=== PATIENT | male | born 1980 | race Caucasian/White ===

== ENCOUNTER 2019-11-15 10:41 | Outpatient (REF) | payer SELFPAY ==
[2019-11-15 13:41] LABS: Basophils # 0.1 10^3/uL (0.0-0.1); Basophils % 0.7 %; Eosinophils # 0.2 10^3/uL (0.0-0.8); Eosinophils % 2.7 %; Hematocrit 43.7 % (42.0-52.0); Hemoglobin 14.7 g/dL (11.7-16.6); Lymphocytes # 2.4 10^3/uL (0.8-4.8); Lymphocytes % 31.4 %; Mean Corpuscular HGB Conc 33.6 g/dL (30.0-36.0); Mean Corpuscular Hemoglobin 31.1 pg (28.0-34.0); Mean Corpuscular Volume 92.6 fL (80-94); Monocytes # 0.6 10^3/uL (0.2-0.9); Neutrophils # 4.4 10^3/uL (1.8-7.7); Neutrophils % 56.9 %; Nucleated Red Blood Cells % 0 %; Platelet Count 254 10^3/cmm (130-400); Red Blood Count 4.72 10^6/uL (4.1-5.3); Red Cell Distribution Width 13.1 % (12.1-15.1); White Blood Count 7.7 10^3/uL (4.0-10.0)
[2019-11-15 14:03] LABS: Estmated Average Glucose 94; Hemoglobin A1C 4.9 % (4.0-6.0)
[2019-11-15 14:07] LABS: Alanine Aminotransferase 18 U/L (0-41); Albumin Level 4.2 g/dL (3.5-5.2); Alkaline Phosphatase 82 IU/L (40-130); Anion Gap 15.8 (5-19); Aspartate Amino Transferase 20 U/L (0-40); Blood Urea Nitrogen 15 mg/dL (6-20); Calcium 9.8 mg/dL (8.5-10.5); Carbon Dioxide 26 mmol/L (22-29); Chloride 104 mmol/L (98-107); Chol HDL Ratio 2.64 mg/dL (1.0-5.00); Cholesterol 148 mg/dL (0-200); Globulin 3.8 g/dL (1.3-4.6); Glomerular Filtration Rate 107.6 mL/min (90-130); Glucose 95 mg/dL (74-109); HDL Cholesterol 56 mg/dL (60-100); LDL Cholesterol Calculated 76 mg/dL (50-129); LDL HDL Ratio 1.36 RATIO (0.00-3.22); Potassium 3.8 mmol/L (3.5-5.1); Sodium 142 mmol/L (136-145); Triglycerides 78 mg/dL (0-150)
== END 2019-11-15 10:42 | disposition home or self-care (01) ==
LOC: LAB 10:41
PROVIDERS: Visit Provider Dermatology
DX: Z01.89 Encounter for other specified special examinations (principal)
CPT/HCPCS: 80053; 80061; 83036; 85025

== ENCOUNTER 2020-01-09 07:11 | Emergency (ER) | payer SELFPAY ==
--- NOTE | 2020-01-09 07:14 | ED_ITS ---
HPI - Extremity Problem General: Chief complaint: Extremity Injury, Upper Stated complaint: Rt arm pain Time Seen by Provider: 01/09/20 07:14 Source: patient Mode of arrival: ambulatory Limitations: no limitations History of Present Illness: HPI Narrative: pt is a 39 yo male here for R arm pain/swelling that he noticed today after taking a hot shower; reports he injected meth earlier this morning and states I remembered it hurt going in ; he then later states maybe he injected yesterday and just doesn't remember; reports meth use for 20+ years; reports pain is worse with bending his elbow; has not noticed any redness to area; no chest pain/SOB; no fevers/chills MD Complaint: extremity pain and extremity swelling Onset (ago): hour(s) Pain Consistency: constant Location: right and upper extremity Relieving factors: immobilization Exacerbating factors: range of motion and palpation Associated symptoms: Deny chest pain or fever(s) Review of Systems General: Reports: 10 or more systems reviewed and unremarkable except in HPI and below Const: Denies: fever, chills, body aches, change in appetite, change in weight, fatigue or malaise Card: Denies: chest pain, palpitations, irregular heart rhythm, edema, swelling of feet/ankles, lightheadedness, syncope, pre-syncope, shortness of breath on exertion, shortness of breath when lying down or bluish discoloration of hands/feet Resp: Denies: shortness of breath, productive cough, coughing up blood or chest congestion Musc: Reports: extremity pain and extremity swelling; Denies: neck pain or back pain Neuro: Denies: headache, numbness in extremities, weakness in extremities or changes in sensation PFS ED PFSH: Social History Smoking and tobacco status: current every day smoker Physical Exam Const: COMMON NORMALS: no apparent distress, average body habitus, oriented x3, no limitations, alert and well nourished Resp: COMMON NORMALS: normal respiratory effort and clear to auscultation bilaterally AUSCULTATION: clear to auscultation bilaterally Cardio: COMMON NORMALS: regular rhythm RATE: tachycardic (mild-102) RHYTHM: regular rhythm Extremity: OTHER: pt has TTP around R AC space; there is some very mild erythema directly where pt has recently injected; I do not palpate any cords, fluctuance, or induration to space; he is tender with ROM of the joint; I do not appreciate any swelling when compared to L arm; area is warm to touch Neuro: COMMON NORMALS: oriented x3 SENSORIUM/ORIENTATION: Yes alert Course Vital Signs: Vital signs: Vital Signs Temperature 98.4 F 01/09/20 07:24 Pulse Rate 91 01/09/20 08:20 Respiratory Rate 16 01/09/20 08:20 Blood Pressure 144/89 01/09/20 07:24 Pulse Oximetry 99 01/09/20 08:20 MDM - Extremity (Nontraumatic) MDM Narrative: Medical decision making narrative: pt with no DVT/SVT or abscess; area is warm to touch and tender; will go ahead and cover with abx to hopefully prevent infection Imaging Data^: US R UE/venous: My impression: report from [place] [facility]; no DVT/thrombus, there is no fluid collection/abscess to R AC, she can visualize some soft tissue edema from recent injection Discharge Plan Discharge Patient Disposition: Home, Self-Care Clinical Impression: Intravenous drug user, Methamphetamine addiction Condition: Stable Prescriptions: New Bactrim DS 800-160 mg tablet 1 tab PO BID 7 Days Qty: 14 RF: 0 Discharge Orders: Discharge Order (Routine); Ordered 01/09/20 Ordered By: Valerie Saleem Patient Instructions: Methamphetamine Abuse (ED) Activity Restrictions/Additional Instructions: Apply cool compresses to area to help with swelling. You may take Tylenol and/or Ibuprofen for discomfort. Will go ahead and place you on antibiotics to hopefully prevent area from becoming infected. Discharge Date/Time: 01/09/20 08:21 Coding Level of Care Code ED Nurse Coordinator for Halle Fwshalini Exam Expanded Problem Focused
[2020-01-09 07:18] VITALS: BMI 30.4
[2020-01-09 07:24] VITALS: BP 144/89; PULSE 101; RESP 20; TEMP 36.9; O2SAT 99
--- NOTE | 2020-01-09 07:29 | USCV_ITS ---
Michael Jackson Jr Age: 39 Gender: M : 1980 Exam Date: 01/09/2020 07:44 Ordering Phys: Valerie Saleem Technologist: YRN PIERRE Exam Location: [facility] [place]_ Indication: PAIN/SWELLING. IV DRUG USE. LOOK AT AC FOSSA FOR ABSCESS. HISTORY: Upper extremity pain. PROCEDURES: Examined were the right jugular, subclavian, axillary, brachial, basilic, radial, ulnar and cephalic veins. Serial compression, augmentation maneuvers, and spectral Doppler flow evaluation were performed. FINDINGS: All veins appear free of thrombus. No filling defects on color Doppler flow analysis. Increase in venous flow with augmentation. Vein flow and caliber vary with respiration. All veins appear compressible. Also evaluated AC space and found no drainable fluid collection. CONCLUSIONS Negative right upper extremity venous Doppler ultrasound. Dr. Imelda Abel MD (Electronically Signed) Final Date: 09 January 2020 08:36 S
--- NOTE | 2020-01-09 07:38 | PC.NURSE ---
Ultra sound to room
[2020-01-09 08:20] VITALS: PULSE 91; RESP 16; O2SAT 99
== END 2020-01-09 08:21 | disposition home or self-care (01) ==
PROVIDERS: Emergency Provider Physician Assistant
DX: F15.20 Other stimulant dependence, uncomplicated (principal); F17.200 Nicotine dependence, unspecified, uncomplicated
CPT/HCPCS: 12345; 93971; 99281; 99282

== ENCOUNTER 2020-01-18 16:31 | Emergency (ER) | payer SELFPAY ==
[2020-01-18 16:35] VITALS: BP 128/95; PULSE 110; RESP 16; TEMP 36.6; O2SAT 98; BMI 30.4
--- NOTE | 2020-01-18 16:35 | XR_ITS ---
WS: [id number] CHEST XRAY TECHNIQUE: Portable chest. CLINICAL INFORMATION: ams COMPARISON: April 07, 2017 FINDINGS: Shallow inspiration. Heart: Normal cardiac silhouette. Lungs: Lungs are clear. No consolidation or pleural effusion. No acute pulmonary infiltrates. Bones: Normal visualized bony structures. XR/XR chest 1V portable [id number] IMPRESSION: Shallow inspiration. No acute pulmonary infiltrates. No focal pneumonia.
--- NOTE | 2020-01-18 16:35 | CTR_ITS ---
PROCEDURE INFORMATION: Exam: CT Head Without Contrast Exam date and time: 01/18/2020 4:39 PM Age: 39 years old Clinical indication: Altered mental status/memory loss; Confusion or disorientation; Patient HX: AMS - non compliant PT - best images possible TECHNIQUE: Imaging protocol: Computed tomography of the head without contrast. Total DLP: 1318.3 mGy-cm Radiation optimization: All CT scans at this facility use at least one of these dose optimization techniques: automated exposure control; mA and/or kV adjustment per patient size (includes targeted exams where dose is matched to clinical indication); or iterative reconstruction. COMPARISON: CT head wo con* [id number] 04/07/2017 12:50 AM FINDINGS: Brain: There is no acute intracranial hemorrhage or abnormal extra-axial fluid collection identified. There is no intracranial mass effect or shift of midline structures. The reynolds-white differentiation is preserved throughout. Ventricles: There is no sulcal or ventricular effacement. The basilar cisterns are open. No hydrocephalus. Bones/joints: No calvarial fracture or destructive osseous lesions are seen. Sinuses: Visualized sinuses are unremarkable. No fluid levels. Mastoid air cells: Visualized mastoid air cells are well aerated. Soft tissues: Unremarkable. CT/CT head wo con* [id number] IMPRESSION: No acute intracranial pathology identified by CT. Radiation Dose CTDIVOL = (mGy): DLP = 1318.3 (mGy-cm)
--- NOTE | 2020-01-18 16:36 | ECG_ITS ---
Measurements Intervals [place] Rate: 89 P: 54 IA: 168 QRS: 30 QRSD: 110 T: 50 QT: 345 QTc: 421 SINUS RHYTHM WITH SINUS ARRHYTHMIA INCOMPLETE RIGHT BUNDLE BRANCH BLOCK No previous ECG available for comparison Electronically Signed On 01-18-2020 17:37:20 CDT by Irina Gandhi M.D. [email or web address]
[2020-01-18 16:42] VITALS: O2SAT 99
[2020-01-18 16:49] LABS: Basophils # 0.1 10^3/uL (0.0-0.1); Basophils % 0.6 %; Eosinophils # 0.2 10^3/uL (0.0-0.8); Eosinophils % 2.5 %; Hematocrit 43.5 % (42.0-52.0); Hemoglobin 14.3 g/dL (11.7-16.6); Lymphocytes # 2.3 10^3/uL (0.8-4.8); Lymphocytes % 27.6 %; Mean Corpuscular HGB Conc 32.9 g/dL (30.0-36.0); Mean Corpuscular Hemoglobin 31.5 pg (28.0-34.0); Mean Corpuscular Volume 95.8 fL (80-94); Mean Platelet Volume 9.2 fL (7.4-10.4); Monocytes # 0.6 10^3/uL (0.2-0.9); Monocytes % 6.8 %; Neutrophils # 5.1 10^3/uL (1.8-7.7); Nucleated Red Blood Cells % 0 %; Platelet Count 277 10^3/cmm (130-400); Red Blood Count 4.54 10^6/uL (4.1-5.3); Red Cell Distribution Width 12.9 % (12.1-15.1); White Blood Count 8.3 10^3/uL (4.0-10.0)
[2020-01-18 16:50] LABS: ABG PCO2 38.5 mmHg (35-45); ABG PH Result 7.43 (7.35-7.45); Arterial Blood Gas Hematocrit 44.5 % (42-52); Base Excess ABG 0.9 mmol/L (-2.0-2.0); Blood Gas Allen Test Pos; Blood Gas Sample Site Radial, right; Blood Gas Sample Type Arterial; HCO3 ABG 25.2 mmol/L (22-26)
--- NOTE | 2020-01-18 16:50 | W.ED.AMS ---
HPI - Altered Mental Status General: Chief Complaint: Shortness of Breath/Dyspnea Stated Complaint: UNRESPONSIVE Time Seen by Provider: 01/18/20 16:34 Source: police Mode of arrival: other Limitations: altered mental status History of Present Illness: HPI narrative: 39-year-old male who was arrested by police for domestic assault. Per complaint investigations officer they were bringing him to half-way he started to stay did not feel well and started seizing. Patient we wrote here was not answering questions and was jerking around in the bed. Patient's afebrile and has had no known illness per police. Patient did respond to an ammonia capsule but will not speak to me at this time. Review of Systems General: Reports: ROS unobtainable due to mental status PFSH ED PFSH: Social History Smoking and tobacco status: current every day smoker Physical Exam Const: OTHER: altered HENMT: COMMON NORMALS: normocephalic and head/scalp atraumatic HEAD & SCALP: normocephalic and atraumatic Eye: COMMON NORMALS: PERRL and EOMs intact bilaterally PUPIL: Yes PERRL Neck/C-Spine: COMMON NORMALS: full ROM and supple Chest: COMMONS NORMALS: inspection of chest normal and palpation of chest normal Resp: COMMON NORMALS: normal respiratory effort, no retractions, no use of accessory muscles and clear to auscultation bilaterally AUSCULTATION: clear to auscultation bilaterally Cardio: COMMON NORMALS: regular rhythm and no murmurs RATE: tachycardic RHYTHM: regular rhythm GI: COMMON NORMALS: normal to inspection, nondistended, normoactive bowel sounds, soft to palpation, non-tender and no masses PALPATION: Yes soft Extremity: COMMON NORMALS: normal to inspection and full ROM Neuro: COMMON NORMALS: moves all extremities Psych: OTHER: patient altered but did respond to ammonia capsule here. Skin: COMMON NORMALS: no rashes or lesions noted and no wounds GENERAL SKIN EXAM: no rashes or lesions noted Course Vital Signs: Vital signs: Vital Signs Temperature 97.8 F 01/18/20 16:35 Pulse Rate 110 H 01/18/20 16:35 Respiratory Rate 16 01/18/20 16:35 Blood Pressure 128/95 01/18/20 16:35 Pulse Oximetry 99 01/18/20 16:42 MDM - Altered Mental Status MDM Narrative: Medical decision making narrative: Patient presents here with methamphetamine abuse. Patient was altered initially but is now awake and alert able to ambulate answer all my questions. Head CT and lab work are normal. Patient is stable for discharge and return if worsening. Lab Data: Labs: Lab Results 01/18/20 01/18/20 01/18/20 Range/Units 16:36 16:36 16:39 WBC 8.3 (4.0-10.0) 10^3/ uL RBC 4.54 (4.1-5.3) 10^6/u L Hgb 14.3 (11.7-16.6) g/dL Hct 43.5 (42.0-52.0) % MCV 95.8 H (80-94) fL MCH 31.5 (28.0-34.0) pg MCHC 32.9 (30.0-36.0) g/dL RDW 12.9 (12.1-15.1) % Plt Count 277 (130-400) 10^3/c mm MPV 9.2 (7.4-10.4) fL Neut % (Auto) 62.0 % Lymph % (Auto) 27.6 % [place] % (Auto) 6.8 % Eos % (Auto) 2.5 % Baso % (Auto) 0.6 % Neut # (Auto) 5.1 (1.8-7.7) 10^3/u L Lymph # (Auto) 2.3 (0.8-4.8) 10^3/u L [place] # (Auto) 0.6 (0.2-0.9) 10^3/u L Eos # (Auto) 0.2 (0.0-0.8) 10^3/u L Baso # (Auto) 0.1 (0.0-0.1) 10^3/u L Nucleated RBC % (a uto) 0 % Nucleated RBCs # 0.0 /100WBC Specimen Type Arterial Sample Site Radial, right ABG pH 7.43 (7.35-7.45) ABG pCO2 38.5 (35-45) mmHg ABG pO2 102.0 H (80.0-100.0) mmH g ABG HCO3 25.2 (22-26) mmol/L ABG Base Excess 0.9 (-2.0-2.0) mmol/ L Johnathon Test Pos Hematocrit 44.5 (42-52) % O2 Delivery Device None FiO2 21.0 % E [employer] Specialist ID ed Sodium 142 (136-145) mmol/L Potassium 4.2 (3.5-5.1) mmol/L Chloride 107 (98-107) mmol/L Carbon Dioxide 24 (22-29) mmol/L Anion Gap 15.2 (5-19) BUN 12 (6-20) mg/dL Creatinine 0.9 (0.7-1.2) mg/dL GFR Calculation 93.9 (90-130) mL/min Glucose 86 (65-115) mg/dL Calculated Osmolal ity 289 (285-295) mOsm/k g Calcium 9.1 (8.5-10.5) mg/dL Total Bilirubin 0.5 (0.15-1.2) mg/dL AST 40 (0-40) U/L ALT 55 H (0-41) U/L Alkaline Phosphata se 83 (40-130) IU/L Total Protein 7.6 (6.6-8.7) g/dL Albumin 4.2 (3.5-5.2) g/dL Globulin 3.4 (1.3-4.6) g/dL Urine Opiates Scre en (Negative) ng/mL Ur Barbiturates Sc reen (Negative) ng/mL Ur Phencyclidine S crn (Negative) ng/mL Ur Amphetamines Sc reen (Negative) ng/mL U Benzodiazepines Scrn (Negative) ng/mL Urine Cocaine Scre en (Negative) ng/mL U Marijuana (THC) Screen (Negative) ng/mL Ethyl Alcohol < 10 (0-10) mg/dL 01/18/20 Range/Units 17:10 WBC (4.0-10.0) 10^3/ uL RBC (4.1-5.3) 10^6/u L Hgb (11.7-16.6) g/dL Hct (42.0-52.0) % MCV (80-94) fL MCH (28.0-34.0) pg MCHC (30.0-36.0) g/dL RDW (12.1-15.1) % Plt Count (130-400) 10^3/c mm MPV (7.4-10.4) fL Neut % (Auto) % Lymph % (Auto) % [place] % (Auto) % Eos % (Auto) % Baso % (Auto) % Neut # (Auto) (1.8-7.7) 10^3/u L Lymph # (Auto) (0.8-4.8) 10^3/u L [place] # (Auto) (0.2-0.9) 10^3/u L Eos # (Auto) (0.0-0.8) 10^3/u L Baso # (Auto) (0.0-0.1) 10^3/u L Nucleated RBC % (a uto) % Nucleated RBCs # /100WBC Specimen Type Sample Site ABG pH (7.35-7.45) ABG pCO2 (35-45) mmHg ABG pO2 (80.0-100.0) mmH g ABG HCO3 (22-26) mmol/L ABG Base Excess (-2.0-2.0) mmol/ L Johnathon Test Hematocrit (42-52) % O2 Delivery Device FiO2 % E [employer] Specialist ID Sodium (136-145) mmol/L Potassium (3.5-5.1) mmol/L Chloride (98-107) mmol/L Carbon Dioxide (22-29) mmol/L Anion Gap (5-19) BUN (6-20) mg/dL Creatinine (0.7-1.2) mg/dL GFR Calculation (90-130) mL/min Glucose (65-115) mg/dL Calculated Osmolal ity (285-295) mOsm/k g Calcium (8.5-10.5) mg/dL Total Bilirubin (0.15-1.2) mg/dL AST (0-40) U/L ALT (0-41) U/L Alkaline Phosphata se (40-130) IU/L Total Protein (6.6-8.7) g/dL Albumin (3.5-5.2) g/dL Globulin (1.3-4.6) g/dL Urine Opiates Scre en Negative (Negative) ng/mL Ur Barbiturates Sc reen Negative (Negative) ng/mL Ur Phencyclidine S crn Negative (Negative) ng/mL Ur Amphetamines Sc reen Positive H (Negative) ng/mL U Benzodiazepines Scrn Negative (Negative) ng/mL Urine Cocaine Scre en Negative (Negative) ng/mL U Marijuana (THC) Screen Negative (Negative) ng/mL Ethyl Alcohol (0-10) mg/dL Imaging Data^: CT Head: Attestation: I personally reviewed and interpreted this imaging study as follows: Radiologist's impression: [facility] [address] [address] [address] Scan Report Signed Patient: Michael Jackson Jr Unit #: [id number] : 1980 Age/Sex: 39 / M ADM Date: 01/18/20 Loc: ER Room/Bed: Attending Dr: Ordering Provider/Ordering MD: Janes Crouch MD Date of Service: 01/18/20 Procedure(s): CT head wo con* [id number] Accession Number(s): [id number] Report Number: [id number] PROCEDURE INFORMATION: Exam: CT Head Without Contrast Exam date and time: 01/18/2020 4:39 PM Age: 39 years old Clinical indication: Altered mental status/memory loss; Confusion or disorientation; Patient HX: AMS - non compliant PT - best images possible TECHNIQUE: Imaging protocol: Computed tomography of the head without contrast. Total DLP: 1318.3 mGy-cm Radiation optimization: All CT scans at this facility use at least one of these dose optimization techniques: automated exposure control; mA and/or kV adjustment per patient size (includes targeted exams where dose is matched to clinical indication); or iterative reconstruction. COMPARISON: CT head wo con* [id number] 04/07/2017 12:50 AM FINDINGS: Brain: There is no acute intracranial hemorrhage or abnormal extra-axial fluid collection identified. There is no intracranial mass effect or shift of midline structures. The reynolds-white differentiation is preserved throughout. Ventricles: There is no sulcal or ventricular effacement. The basilar cisterns are open. No hydrocephalus. Bones/joints: No calvarial fracture or destructive osseous lesions are seen. Sinuses: Visualized sinuses are unremarkable. No fluid levels. Mastoid air cells: Visualized mastoid air cells are well aerated. Soft tissues: Unremarkable. CT/CT head wo con* [id number] IMPRESSION: No acute intracranial pathology identified by CT. CXR: Attestation: I personally reviewed and interpreted this imaging study as follows: Radiologist's impression: [address] [place] [id number] XRay Report Signed Patient: Michael Jackson Jr Unit #: [id number] : 1980 Age/Sex: 39 / M ADM Date: 01/18/20 Loc: ER Room/Bed: Attending Dr: Ordering Provider/Ordering MD: Janes Crouch MD Date of Service: 01/18/20 Procedure(s): XR chest 1V portable [id number] Accession Number(s): [id number] Report Number: [id number] WS: [id number] CHEST XRAY TECHNIQUE: Portable chest. CLINICAL INFORMATION: ams COMPARISON: April 07, 2017 FINDINGS: Shallow inspiration. Heart: Normal cardiac silhouette. Lungs: Lungs are clear. No consolidation or pleural effusion. No acute pulmonary infiltrates. Bones: Normal visualized bony structures. XR/XR chest 1V portable [id number] IMPRESSION: Shallow inspiration. No acute pulmonary infiltrates. No focal pneumonia. EKG Data^: EKG 1: Attestation: I personally reviewed and interpreted this EKG as follows: EKG interpretation date: 01/18/20 EKG interpretation time: 17:52 Interpretation: nsr hr [address] or t wave abnormalities qrs 110 [id number] Discharge Plan Discharge Patient Disposition: Home, Self-Care Clinical Impression: Methamphetamine abuse Condition: Stable Discharge Orders: Discharge Order (Routine); Ordered 01/18/20 Ordered By: Janes Crouch Discharge Diet: Advance as tolerated Discharge Activity: Resume usual activity Patient Instructions: Methamphetamine Abuse (ED) Coding Level of Care Code ED Tailor Women'S Garment Alteration for Chg Fwd Exam Comprehensive
[2020-01-18] MEDS: LORazepam 2 mg/mL INJ 1 mL IVP (16:51)
[2020-01-18 17:15] LABS: Alanine Aminotransferase 55 U/L (0-41); Albumin Level 4.2 g/dL (3.5-5.2); Alkaline Phosphatase 83 IU/L (40-130); Anion Gap 15.2 (5-19); Aspartate Amino Transferase 40 U/L (0-40); Blood Urea Nitrogen 12 mg/dL (6-20); Calcium 9.1 mg/dL (8.5-10.5); Carbon Dioxide 24 mmol/L (22-29); Chloride 107 mmol/L (98-107); Globulin 3.4 g/dL (1.3-4.6); Glomerular Filtration Rate 93.9 mL/min (90-130); Glucose 86 mg/dL (65-115); Osmolality Calculated 289 mOsm/kg (285-295); Potassium 4.2 mmol/L (3.5-5.1); Sodium 142 mmol/L (136-145); Total Bilirubin 0.5 mg/dL (0.15-1.2); Total Protein 7.6 g/dL (6.6-8.7)
[2020-01-18 17:25] LABS: Alcohol Level < 10 mg/dL (0-10)
[2020-01-18 17:54] LABS: Amphetamines Screen Urine Positive (Negative); Barbiturates Screen Urine Negative (Negative); Benzodiazepines Screen Urine Negative (Negative); Cocaine Screen Urine Negative (Negative); Opiate Screen Urine Negative (Negative); PCP Screen Urine Negative (Negative); THC Screen Urine Negative (Negative)
[2020-01-18 18:27] VITALS: BP 113/78; PULSE 68; RESP 19; O2SAT 98
== END 2020-01-18 18:28 | disposition home or self-care (01) ==
PROVIDERS: Emergency Provider Emergency Medicine
DX: F15.10 Other stimulant abuse, uncomplicated (principal); F17.200 Nicotine dependence, unspecified, uncomplicated
CPT/HCPCS: 12345; 36600; 70450; 71045; 80053; 80306; 80307; 82803; 85025; 93005; 96374; 96375; 99283; 99284; A9270; J2060

== ENCOUNTER 2020-08-18 03:42 | Emergency (ER) | payer SELFPAY ==
[2020-08-18 03:45] VITALS: BP 117/78; PULSE 96; RESP 18; TEMP 36.4; O2SAT 100; BMI 33.4
[2020-08-18] MEDS: sodium chloride 0.9% 1,000 ML 999 ML IV (04:17)
[2020-08-18] MEDS: ondansetron 2 mg/ML SDV 2 mL 4 MG IVP (04:18)
[2020-08-18] MEDS: ketorolac 30 mg/mL INJ IVP (04:18)
[2020-08-18 04:24] LABS: Basophils % 0.6 %; Eosinophils # 0.1 10^3/uL (0.0-0.8); Eosinophils % 1.7 %; Hematocrit 42.4 % (42.0-52.0); Hemoglobin 13.9 g/dL (11.7-16.6); Lymphocytes # 1.9 10^3/uL (0.8-4.8); Lymphocytes % 36.1 %; Mean Corpuscular HGB Conc 32.8 g/dL (30.0-36.0); Mean Corpuscular Hemoglobin 30.8 pg (28.0-34.0); Mean Platelet Volume 9.9 fL (7.4-10.4); Monocytes # 0.4 10^3/uL (0.2-0.9); Monocytes % 7.7 %; Neutrophils # 2.85 10^3/uL (1.8-7.7); Neutrophils % 53.5 %; Nucleated Red Blood Cells % 0 %; Platelet Count 229 10^3/cmm (130-400); Red Blood Count 4.51 10^6/uL (4.1-5.3); Red Cell Distribution Width 13.8 % (12.1-15.1); White Blood Count 5.3 10^3/uL (4.0-10.0)
[2020-08-18 04:35] LABS: Lactate (Lactic Acid level) 0.8 mmol/L (0.5-2.2)
[2020-08-18 04:45] LABS: Procalcitonin 0.39 ng/mL (0-0.5)
[2020-08-18 04:48] VITALS: BP 162/78; PULSE 113; RESP 14; O2SAT 95
[2020-08-18 04:56] LABS: Albumin Level 3.2 g/dL (3.5-5.2); Alkaline Phosphatase 151 IU/L (40-130); Anion Gap 12.4 (5-19); Aspartate Amino Transferase 566 U/L (0-40); Blood Urea Nitrogen 6 mg/dL (6-20); C Reactive Protein 10.2 mg/L (0.0-4.9); Calcium 8.5 mg/dL (8.5-10.5); Carbon Dioxide 25 mmol/L (22-29); Chloride 101 mmol/L (98-107); Globulin 3.2 g/dL (1.3-4.6); Glomerular Filtration Rate 124.9 mL/min (90-130); Glucose 91 mg/dL (65-115); Lipase 48 U/L (13-60); Magnesium 1.6 mg/dL (1.7-2.3); Osmolality Calculated 277 mOsm/kg (285-295); Potassium 3.4 mmol/L (3.5-5.1); Sodium 135 mmol/L (136-145); Total Bilirubin 5.6 mg/dL (0.15-1.2); Total Protein 6.4 g/dL (6.6-8.7)
[2020-08-18 05:07] LABS: Alanine Aminotransferase 1579 U/L (0-41)
--- NOTE | 2020-08-18 05:27 | US_ITS ---
WS: [id number] ULTRASOUND ABDOMEN LIMITED CLINICAL INFORMATION: ruq pain COMPARISON: None. FINDINGS: Liver Size: Enlarged Craniocaudal length: 16.7 cm. Echogenicity: Hypoechoic Surface nodularity: None. Mass (size and location): None. Bile ducts Intrahepatic ducts: Normal. Common bile duct diameter: 0.6 cm. Gallbladder Gallbladder is contracted Gallstones: None. Gallbladder sludge: None. Gallbladder wall thickening: None. Pericholecystic fluid: None. Sonographic Pierce sign: Absent. Pancreas Normal as visualized. Right kidney: Normal. Hydronephrosis: None. Size: 11.0 cm x 6.5 cm x 5.3 cm. Abdominal aorta and IVC Visualized portions are normal. Ascites: None. US/US gall bladder [id number] IMPRESSION: 1. Hepatomegaly measuring 16.7 CM. Hypoechoic liver can be seen with hepatocel lular disease and hepatitis Recommend correlation with liver function tests. 2. Gallbladder is contracted. No cholelithiasis. 3. Hydronephrosis in right kidney.
[2020-08-18 05:42] LABS: Amphetamines Screen Urine Positive (Negative); Barbiturates Screen Urine Negative (Negative); Benzodiazepines Screen Urine Negative (Negative); Cocaine Screen Urine Negative (Negative); Opiate Screen Urine Negative (Negative); PCP Screen Urine Negative (Negative); THC Screen Urine Negative (Negative)
[2020-08-18 05:46] LABS: Bilirubin Urine 3+ (Negative); Blood Urine Trace (Negative); Glucose Urine UA Norm (Normal); Ketones Urine Negative (Negative); Nitrate Urine Negative (Negative); Protein Urine Neg (Negative); Urine Appearance Clear (CLEAR); Urine Color Amber (Yellow); pH Urine 5 (5-7)
[2020-08-18 05:47] LABS: Add Urine Microscopic? YES; Leukocyte Esterase Urine Negative (Negative); Urobilinogen Urine 4 mg/dL (Negative)
[2020-08-18 06:07] LABS: Add Urine Culture? No; Bacteria Urine TRACE /hpf; Hyaline Casts Urine 0-4 /lpf; Mucus Urine 4+ /hpf; RBC Urine 0-4 /hpf (0-2); Squamous Epithelial Cell Urine 0-4 /hpf (0-5); WBC Urine 0-4 /hpf (0-5)
--- NOTE | 2020-08-18 06:08 | ED_ITS ---
HPI - Abdominal Pain General: Chief Complaint: Abdominal Pain Stated Complaint: cough/n/v Time Seen by Provider: 08/18/20 05:08 History of Present Illness: HPI narrative: 40-year-old male comes in with multiple complaints, but mainly complains of epigastric and right upper quadrant pain with nausea. He does not have a fever and has not had a fever. He complains of some mild dizziness at times. The pain is mostly after he eats. He says this started 3 to 4 days ago. None of his family members have been sick. MD elicited complaint: abdominal pain Associated Symptoms: Reports hematuria, nausea and vomiting; Denies chills, dysuria and fever(s) Review of Systems Const: Denies: fever(s) or chills Eyes: Denies: change in vision ENMT: Denies: odynophagia or sinus pain Card: Denies: chest pain, palpitations or irregular heart rhythm Resp: Reports: non-productive cough; Denies: dyspnea, productive cough or wheezing GI: Reports: abdominal pain, nausea and vomiting; Denies: rectal pain : Reports: hematuria; Denies: difficulty urinating, dysuria, urinary frequency or urinary urgency Musc: Denies: joint redness Skin/Breast: Denies: rash or erythema Neuro: Reports: dizziness; Denies: headache(s), vertigo, confusion or seizure-like activity Psych: Denies: anxiety PFSH ED PFSH: Social History Smoking and tobacco status: current every day smoker Physical Exam Const: GENERAL APPEARANCE: well developed ORIENTATION/CONSCIOUSNESS: Yes oriented to person, Yes oriented to place and Yes oriented to time HENMT: COMMON NORMALS: normocephalic, external ears normal and Normal external nose present HEAD & SCALP: normocephalic FACE & SINUS: normal facial exam NOSE: Normal external nose present and No nasal discharge present EXTERNAL EAR: Yes external ears normal Eye: COMMON NORMALS: Equal, round and reactive pupils present, EOMs intact bilaterally and conjunctivae normal EYELID: eyelids normal CONJUNCTIVA: Yes conjunctivae normal PUPIL: Yes Equal, round and reactive pupils present Neck/C-Spine: GENERAL: No tracheal deviation Chest: COMMONS NORMALS: normal inspection of the chest CHEST: No tenderness Resp: COMMON NORMALS: clear to auscultation bilaterally EFFORT & INSPECTION: No tachypneic, No respiratory distress, No retractions, No uses accessory muscles and No tracheal deviation AUSCULTATION: clear to auscultation bilaterally, no rhonchi, no wheezes and lung sounds not diminished Cardio: COMMON NORMALS: regular rate and regular rhythm RATE: regular rate RHYTHM: regular rhythm HEART SOUNDS: no murmurs PERIPHERAL PULSES: radial pulses present GI: INSPECTION: No abdominal distension AUSCULTATION: No Hyperactive bowel sounds present and No Hypoactive bowel sounds present PALPATION: Yes Tenderness to palpation present (GI) (Gastric) Details: RUQ, No Guarding due to palpation present (GI) and No Rigid due to palpation PERCUSSION: no dullness to percussion and no tympanic to percussion Neuro: SENSORIUM/ORIENTATION: Yes oriented to person, Yes oriented to place and Yes oriented to time Psych: COMMON NORMALS: mental status grossly normal Skin: COMMON NORMALS: no rashes or lesions noted GENERAL SKIN EXAM: no rashes or lesions noted Course Vital Signs: Vital signs: Vital Signs Temperature 97.5 F L 08/18/20 03:45 Pulse Rate 113 H 08/18/20 04:48 Respiratory Rate 14 08/18/20 04:48 Blood Pressure 162/78 08/18/20 04:48 Pulse Oximetry 95 08/18/20 04:48 MDM - Abdominal Pain MDM Narrative: Medical decision making narrative: 40-year-old male with epigastric and right upper quadrant tenderness and pain intermittently. No fever. Some vomiting. No diarrhea. His white blood cell count is 5.3. His potassium is 3.4. His liver enzymes are significantly elevated including a jonathon irubin of 5. He is positive for amphetamines. Suspect hepatitis in this patient. Gallbladder ultrasound reveals no common bile duct dilatation. There is no stone or sludge. There is borderline wall edema. No real sonographic Pierce sign. Lab Data: Labs: Lab Results 08/18/20 08/18/20 08/18/20 Range/Units 04:15 04:15 04:15 WBC 5.3 (4.0-10.0) 10^3/ uL RBC 4.51 (4.1-5.3) 10^6/u L Hgb 13.9 (11.7-16.6) g/dL Hct 42.4 (42.0-52.0) % MCV 94.0 (80-94) fL MCH 30.8 (28.0-34.0) pg MCHC 32.8 (30.0-36.0) g/dL RDW 13.8 (12.1-15.1) % Plt Count 229 (130-400) 10^3/c mm MPV 9.9 (7.4-10.4) fL Neut % (Auto) 53.5 % Lymph % (Auto) 36.1 % Barber % (Auto) 7.7 % Eos % (Auto) 1.7 % Baso % (Auto) 0.6 % Neut # (Auto) 2.85 (1.8-7.7) 10^3/u L Lymph # (Auto) 1.9 (0.8-4.8) 10^3/u L Barber # (Auto) 0.4 (0.2-0.9) 10^3/u L Eos # (Auto) 0.1 (0.0-0.8) 10^3/u L Baso # (Auto) 0.0 (0.0-0.1) 10^3/u L Nucleated RBC % (a uto) 0 % Nucleated RBCs # 0.0 /100WBC Sodium 135 L (136-145) mmol/L Potassium 3.4 L (3.5-5.1) mmol/L Chloride 101 (98-107) mmol/L Carbon Dioxide 25 (22-29) mmol/L Anion Gap 12.4 (5-19) BUN 6 (6-20) mg/dL Creatinine 0.7 (0.7-1.2) mg/dL GFR Calculation 124.9 (90-130) mL/min Glucose 91 (65-115) mg/dL Calculated Osmolal ity 277 L (285-295) mOsm/k g Lactate 0.8 (0.5-2.2) mmol/L Calcium 8.5 (8.5-10.5) mg/dL Magnesium 1.6 L (1.7-2.3) mg/dL Total Bilirubin 5.6 H (0.15-1.2) mg/dL AST 566 H (0-40) U/L ALT 1579 H (0-41) U/L Alkaline Phosphata se 151 H (40-130) IU/L C-Reactive Protein 10.2 H (0.0-4.9) mg/L Total Protein 6.4 L (6.6-8.7) g/dL Albumin 3.2 L (3.5-5.2) g/dL Globulin 3.2 (1.3-4.6) g/dL Lipase 48 (13-60) U/L Procalcitonin 0.39 (0-0.5) ng/mL Urine Color (Yellow) Urine Appearance (CLEAR) Urine pH (5-7) Ur Specific Gravit y (1.005-1.030) Urine Protein (Negative) Urine Glucose (UA) (Normal) Urine Ketones (Negative) Urine Blood (Negative) Urine Nitrate (Negative) Urine Bilirubin (Negative) Urine Urobilinogen (Negative) mg/dL Ur Leukocyte Mari ase (Negative) Urine RBC (0-2) /hpf Urine WBC (0-5) /hpf Ur Squamous Epith Cells (0-5) /hpf Amorphous Sediment Urine Bacteria (NONE) /hpf Hyaline Casts /lpf Urine Mucus /hpf Urine Opiates Scre en (Negative) ng/mL Ur Barbiturates Sc reen (Negative) ng/mL Ur Phencyclidine S crn (Negative) ng/mL Ur Amphetamines Sc reen (Negative) ng/mL U Benzodiazepines Scrn (Negative) ng/mL Urine Cocaine Scre en (Negative) ng/mL U Marijuana (THC) Screen (Negative) ng/mL 08/18/20 08/18/20 Range/Units 05:10 05:10 WBC (4.0-10.0) 10^3/ uL RBC (4.1-5.3) 10^6/u L Hgb (11.7-16.6) g/dL Hct (42.0-52.0) % MCV (80-94) fL MCH (28.0-34.0) pg MCHC (30.0-36.0) g/dL RDW (12.1-15.1) % Plt Count (130-400) 10^3/c mm MPV (7.4-10.4) fL Neut % (Auto) % Lymph % (Auto) % Barber % (Auto) % Eos % (Auto) % Baso % (Auto) % Neut # (Auto) (1.8-7.7) 10^3/u L Lymph # (Auto) (0.8-4.8) 10^3/u L Barber # (Auto) (0.2-0.9) 10^3/u L Eos # (Auto) (0.0-0.8) 10^3/u L Baso # (Auto) (0.0-0.1) 10^3/u L Nucleated RBC % (a uto) % Nucleated RBCs # /100WBC Sodium (136-145) mmol/L Potassium (3.5-5.1) mmol/L Chloride (98-107) mmol/L Carbon Dioxide (22-29) mmol/L Anion Gap (5-19) BUN (6-20) mg/dL Creatinine (0.7-1.2) mg/dL GFR Calculation (90-130) mL/min Glucose (65-115) mg/dL Calculated Osmolal ity (285-295) mOsm/k g Lactate (0.5-2.2) mmol/L Calcium (8.5-10.5) mg/dL Magnesium (1.7-2.3) mg/dL Total Bilirubin (0.15-1.2) mg/dL AST (0-40) U/L ALT (0-41) U/L Alkaline Phosphata se (40-130) IU/L C-Reactive Protein (0.0-4.9) mg/L Total Protein (6.6-8.7) g/dL Albumin (3.5-5.2) g/dL Globulin (1.3-4.6) g/dL Lipase (13-60) U/L Procalcitonin (0-0.5) ng/mL Urine Color Vijaya (Yellow) Urine Appearance Clear (CLEAR) Urine pH 5 (5-7) Ur Specific Gravit y 1.020 (1.005-1.030) Urine Protein Neg (Negative) Urine Glucose (UA) Norm (Normal) Urine Ketones Negative (Negative) Urine Blood Trace H (Negative) Urine Nitrate Negative (Negative) Urine Bilirubin 3+ H (Negative) Urine Urobilinogen 4 H (Negative) mg/dL Ur Leukocyte Mari ase Negative (Negative) Urine RBC 0-4 H (0-2) /hpf Urine WBC 0-4 H (0-5) /hpf Ur Squamous Epith Cells 0-4 H (0-5) /hpf Amorphous Sediment Not Reportable Urine Bacteria Trace (NONE) /hpf Hyaline Casts 0-4 H /lpf Urine Mucus 4+ /hpf Urine Opiates Scre en Negative (Negative) ng/mL Ur Barbiturates Sc reen Negative (Negative) ng/mL Ur Phencyclidine S crn Negative (Negative) ng/mL Ur Amphetamines Sc reen Positive H (Negative) ng/mL U Benzodiazepines Scrn Negative (Negative) ng/mL Urine Cocaine Scre en Negative (Negative) ng/mL U Marijuana (THC) Screen Negative (Negative) ng/mL Discharge Plan Discharge Patient Disposition: Home Condition: Stable Prescriptions: New Zofran 4 mg tablet 4 mg PO Q6H PRN (Reason: nausea and vomiting) Qty: 10 RF: 0 Prevacid 30 mg capsule,delayed release(DR/EC) 30 mg PO DAILY Qty: 30 RF: 0 Discharge Orders: Discharge Order (Routine); Ordered 08/18/20 Ordered By: Rio Ortiz Discharge Diet: Advance as tolerated and Clear Liquid Discharge Activity: Increase activity as tolerated Patient Instructions: Acute Abdominal Pain (ED) Activity Restrictions/Additional Instructions: Return for fever greater than 100, vomiting liquids or medications despite treatment, worsening pain despite treatment, other concerning symptoms. You need to have your liver enzymes and bilirubin checked in the next 48 hours to make sure they are not continuing to elevate. See your doctor for this. 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
[2020-08-18 06:37] VITALS: PULSE 78; RESP 18; O2SAT 96
== END 2020-08-18 06:39 | disposition home or self-care (01) ==
PROVIDERS: Emergency Provider Emergency Medicine
DX: R10.9 Unspecified abdominal pain (principal); R11.0 Nausea; F17.210 Nicotine dependence, cigarettes, uncomplicated
CPT/HCPCS: 12345; 76705; 80053; 80306; 81001; 83605; 83690; 83735; 84145; 85025; 86140; 87040; 87205; 96361; 96374; 96375; 99283; J1885; J2405; J7030

== ENCOUNTER 2020-09-03 14:10 | Inpatient (IN) | payer SELFPAY ==
[2020-09-03 14:16] VITALS: BP 148/99; PULSE 92; RESP 17; TEMP 36.4; O2SAT 99; BMI 32.6
--- NOTE | 2020-09-03 14:21 | CTR_ITS ---
PROCEDURE INFORMATION: Exam: CT Neck With Contrast Exam date and time: 09/03/2020 3:34 PM Age: 40 years old Clinical indication: Injury or trauma; Asphyxiation (suffocation); Patient HX: Attempted self strangulation; Additional info: Attempted stangulation TECHNIQUE: Imaging protocol: Computed tomography images of the neck with intravenous contrast. Radiation optimization: All CT scans at this facility use at least one of these dose optimization techniques: automated exposure control; mA and/or kV adjustment per patient size (includes targeted exams where dose is matched to clinical indication); or iterative reconstruction. Contrast material: OMNI 300; Contrast volume: 95 ml; Contrast route: INTRAVENOUS (IV); COMPARISON: No relevant prior studies available. RADIATION DOSE METRICS: Total DLP (mGy-cm): 663.62 FINDINGS: Nasopharynx: Unremarkable. Dental: No apical pneumothorax demonstrated. Oropharynx: No significant tonsillar enlargement. No peritonsillar abscess. Hypopharynx: Unremarkable. Larynx: Unremarkable. No epiglotic enlargement. Retropharyngeal space: Unremarkable. Submandibular/Parotid glands: Glands are normal in size. Thyroid: No enlarged or calcified nodules. Lymph nodes: No lymphadenopathy. Trachea: Unremarkable. Lungs: The lung apices are unremarkable. Bones/joints: No fracture or other acute osseous abnormality. Cervical vertebral body heights are preserved. No fractures are noted. Vertebral alignment is physiologic. Vasculature: Vascular structures appear unremarkable. Carotid arteries and jugular veins are patent. Soft tissues: No significant soft tissue swelling. CT/CT neck w con* [id number] IMPRESSION: Unremarkable CT of the soft tissue neck. No acute abnormality. Radiation Dose CTDIVOL = (mGy): DLP = 663.62 (mGy-cm)
[2020-09-03 14:52] LABS: Basophils % 0.3 %; Eosinophils # 0.1 10^3/uL (0.0-0.8); Eosinophils % 0.9 %; Hematocrit 44.4 % (42.0-52.0); Hemoglobin 14.1 g/dL (11.7-16.6); Lymphocytes # 1.4 10^3/uL (0.8-4.8); Mean Corpuscular HGB Conc 31.8 g/dL (30.0-36.0); Mean Corpuscular Hemoglobin 31.3 pg (28.0-34.0); Mean Corpuscular Volume 98.7 fL (80-94); Mean Platelet Volume 9.7 fL (7.4-10.4); Monocytes # 0.3 10^3/uL (0.2-0.9); Monocytes % 3.8 %; Neutrophils # 4.98 10^3/uL (1.8-7.7); Neutrophils % 73.7 %; Nucleated Red Blood Cells % 0 %; Platelet Count 217 10^3/cmm (130-400); Red Cell Distribution Width 13.7 % (12.1-15.1); White Blood Count 6.8 10^3/uL (4.0-10.0)
[2020-09-03 14:55] LABS: Add Urine Microscopic? NO
[2020-09-03 15:10] LABS: Bilirubin Urine Neg (Negative); Blood Urine Neg (Negative); Glucose Urine UA Norm (Normal); Ketones Urine Negative (Negative); Leukocyte Esterase Urine Negative (Negative); Nitrate Urine Negative (Negative); Protein Urine Neg (Negative); Urine Appearance Clear (CLEAR); Urine Color Yellow (Yellow); Urobilinogen Urine Norm (Negative); pH Urine 6 (5-7)
[2020-09-03 15:23] LABS: Amphetamines Screen Urine Positive (Negative); Barbiturates Screen Urine Negative (Negative); Benzodiazepines Screen Urine Negative (Negative); Cocaine Screen Urine Negative (Negative); Opiate Screen Urine Negative (Negative); PCP Screen Urine Negative (Negative); THC Screen Urine Negative (Negative)
[2020-09-03 15:24] LABS: Alanine Aminotransferase 53 U/L (0-41); Albumin Level 4.1 g/dL (3.5-5.2); Alkaline Phosphatase 97 IU/L (40-130); Blood Urea Nitrogen 14 mg/dL (6-20); Calcium 9.2 mg/dL (8.5-10.5); Carbon Dioxide 27 mmol/L (22-29); Chloride 105 mmol/L (98-107); Glomerular Filtration Rate 124.9 mL/min (90-130); Glucose 126 mg/dL (65-115); Osmolality Calculated 292 mOsm/kg (285-295); Sodium 140 mmol/L (136-145); Thyroid Stimulating Hormone 0.38 uIU/mL (0.27-4.20); Total Protein 7.1 g/dL (6.6-8.7)
[2020-09-03 15:40] LABS: Acetaminophen < 5.0 ug/mL (10-30); Alcohol Level < 10 mg/dL (0-10); Salicylate < 0.3 mg/dL (3-10)
[2020-09-03 15:43] LABS: Anion Gap 11.8 (5-19); Potassium 3.8 mmol/L (3.5-5.1)
[2020-09-03 15:44] LABS: Aspartate Amino Transferase 40 U/L (0-40)
[2020-09-03] MEDS: iohexol 300 mg/mL 100 mL Btl IV (15:59)
[2020-09-03 16:16] VITALS: BP 113/75; PULSE 81; RESP 16; O2SAT 98
[2020-09-03 16:35] VITALS: BP 126/87; PULSE 87; RESP 18; TEMP 36.7; O2SAT 98
--- NOTE | 2020-09-03 19:02 | W.ED.PSYCH ---
HPI - Psych General: Chief Complaint: Airway/Esophagus Foreign Body Stated Complaint: POST STRANGULATION, RESP DISTRESS Time Seen by Provider: 09/03/20 14:10 Source: patient, EMS and police Mode of arrival: EMS Limitations: no limitations History of Present Illness: HPI Narrative: This patient is a 40-year-old male with a history of bipolar disorder, who presents to the emergency department from [facility]. He was placed in group home earlier this morning. Patient stated that he had used methamphetamines before he was put in group home. He also states that anytime has used methamphetamines he gets suicidal. While he was in group home he attempted to strangle himself by wrapping a sheet around his neck. He has therefore brought to the emergency department for evaluation. MD complaint: suicidal ideation and other (Suicide attempt) Context: recent drug abuse Associated psychiatric symptoms: depression and suicidal ideation Associated symptoms: Reports depression; Deny auditory hallucinations, visual hallucinations, delusions, homicidal ideation or suicidal ideation Review of Systems General: Reports: 10 or more systems reviewed and unremarkable except in HPI and below Const: Denies: fever(s), chills or body aches Eyes: Denies: change in vision or blurry vision ENMT: Reports: other (neck pain anteriorly); Denies: throat pain, enlarged tonsils, odynophagia, hoarseness, mouth pain or swelling of lips/tongue Card: Denies: palpitations, irregular heart rhythm, edema or swelling of feet/ankles Resp: Denies: dyspnea, productive cough or non-productive cough GI: Denies: abdominal pain, nausea or vomiting : Denies: flank pain, dysuria, urinary frequency, urinary urgency or urinary hesitancy Musc: Denies: neck pain, back pain or extremity swelling Skin/Breast: Denies: rash, pruritus or erythema Neuro: Denies: headache(s), numbness in extremities or weakness in extremities Psych: Reports: depression; Denies: visual hallucinations, auditory hallucinations, suicidal ideation or homicidal ideation Endo: Denies: polyuria, polydipsia or tired all the time [facility] PFSH: Social History Smoking and tobacco status: current every day smoker Physical Exam Const: COMMON NORMALS: no acute distress, average body habitus, patient oriented x3, no limitations, healthy appearing, alert and well nourished HENMT: COMMON NORMALS: normocephalic, atraumatic and moist oral mucous membranes HEAD & SCALP: normocephalic and atraumatic Eye: COMMON NORMALS: Equal, round and reactive pupils present, EOMs intact bilaterally, conjunctivae normal and no scleral icterus CONJUNCTIVA: Yes conjunctivae normal PUPIL: Yes Equal, round and reactive pupils present Neck/C-Spine: COMMON NORMALS: full ROM, supple, no meningeal signs, no JVD and No carotid bruits OTHER: Mild abrasion and ligature leal on the anterior neck. Resp: COMMON NORMALS: normal respiratory effort, No retractions, No use of accessory muscles, clear to auscultation bilaterally and percussion normal AUSCULTATION: clear to auscultation bilaterally PERCUSSION: percussion normal Cardio: COMMON NORMALS: no JVD, regular rate, regular rhythm, S1 normal heart sound present, S2 normal heart sound present, No gallops present (Cardio), No clicks present (Cardio), No murmurs present (Cardio), No rub (Cardio) and Peripheral pulses 2+ throughout RATE: regular rate RHYTHM: regular rhythm HEART SOUNDS: S1 normal heart sound present and S2 normal heart sound present PERIPHERAL PULSES: Peripheral pulses 2+ throughout GI: COMMON NORMALS: Normal to inspection, nondistended, normoactive bowel sounds present, Soft to palpation, non-tender, No hepatosplenomegaly present, no masses and no bruits PALPATION: Yes Soft to palpation and Yes No hepatosplenomegaly present Extremity: COMMON NORMALS: normal to inspection, full ROM, capillary refill normal, no calf tenderness and no pedal edema Neuro: COMMON NORMALS: patient oriented x3 SENSORIUM/ORIENTATION: Yes alert MENINGEAL SIGNS: Yes no meningeal signs Psych: THOUGHT CONTENT: No delusions Skin: COMMON NORMALS: no rashes or lesions noted, no wounds, turgor normal, no jaundice, no petechiae and no mottling GENERAL SKIN EXAM: no rashes or lesions noted and turgor normal MDM - Psych MDM Narrative: Medical decision making narrative: 40-year-old male who was brought in after a suicide attempt at the [facility]. He was medically cleared and admitted to the neuropsychiatric unit for further evaluation and management. Medical Records: Attestation: I reviewed the patient's medical records. Lab Data: Attestation: I reviewed the patient's lab results. Labs: Lab Results 09/03/20 09/03/20 09/03/20 Range/Units 14:33 14:33 14:44 WBC 6.8 (4.0-10.0) 10^3/ uL RBC 4.50 (4.1-5.3) 10^6/u L Hgb 14.1 (11.7-16.6) g/dL Hct 44.4 (42.0-52.0) % MCV 98.7 H (80-94) fL MCH 31.3 (28.0-34.0) pg MCHC 31.8 (30.0-36.0) g/dL RDW 13.7 (12.1-15.1) % Plt Count 217 (130-400) 10^3/c mm MPV 9.7 (7.4-10.4) fL Neut % (Auto) 73.7 % Lymph % (Auto) 21.0 % [place] % (Auto) 3.8 % Eos % (Auto) 0.9 % Baso % (Auto) 0.3 % Neut # (Auto) 4.98 (1.8-7.7) 10^3/u L Lymph # (Auto) 1.4 (0.8-4.8) 10^3/u L [place] # (Auto) 0.3 (0.2-0.9) 10^3/u L Eos # (Auto) 0.1 (0.0-0.8) 10^3/u L Baso # (Auto) 0.0 (0.0-0.1) 10^3/u L Nucleated RBC % (a uto) 0 % Nucleated RBCs # 0.0 /100WBC Sodium 140 (136-145) mmol/L Potassium 3.8 (3.5-5.1) mmol/L Chloride 105 (98-107) mmol/L Carbon Dioxide 27 (22-29) mmol/L Anion Gap 11.8 (5-19) BUN 14 (6-20) mg/dL Creatinine 0.7 (0.7-1.2) mg/dL GFR Calculation 124.9 (90-130) mL/min Glucose 126 H (65-115) mg/dL Calculated Osmolal ity 292 (285-295) mOsm/k g Calcium 9.2 (8.5-10.5) mg/dL Total Bilirubin 1.0 (0.15-1.2) mg/dL AST 40 (0-40) U/L ALT 53 H (0-41) U/L Alkaline Phosphata se 97 (40-130) IU/L Total Protein 7.1 (6.6-8.7) g/dL Albumin 4.1 (3.5-5.2) g/dL Globulin 3.0 (1.3-4.6) g/dL TSH 0.38 (0.27-4.20) uIU/ mL Urine Color Yellow (Yellow) Urine Appearance Clear (CLEAR) Urine pH 6 (5-7) Ur Specific Gravit y 1.020 (1.005-1.030) Urine Protein Neg (Negative) Urine Glucose (UA) Norm (Normal) Urine Ketones Negative (Negative) Urine Blood Neg (Negative) Urine Nitrate Negative (Negative) Urine Bilirubin Neg (Negative) Urine Urobilinogen Norm (Negative) mg/dL Ur Leukocyte Mari ase Negative (Negative) Salicylates < 0.3 L (3-10) mg/dL Urine Opiates Scre en (Negative) ng/mL Acetaminophen < 5.0 L (10-30) ug/mL Ur Barbiturates Sc reen (Negative) ng/mL Ur Phencyclidine S crn (Negative) ng/mL Ur Amphetamines Sc reen (Negative) ng/mL U Benzodiazepines Scrn (Negative) ng/mL Urine Cocaine Scre en (Negative) ng/mL U Marijuana (THC) Screen (Negative) ng/mL Ethyl Alcohol < 10 (0-10) mg/dL 09/03/20 Range/Units 14:44 WBC (4.0-10.0) 10^3/ uL RBC (4.1-5.3) 10^6/u L Hgb (11.7-16.6) g/dL Hct (42.0-52.0) % MCV (80-94) fL MCH (28.0-34.0) pg MCHC (30.0-36.0) g/dL RDW (12.1-15.1) % Plt Count (130-400) 10^3/c mm MPV (7.4-10.4) fL Neut % (Auto) % Lymph % (Auto) % [place] % (Auto) % Eos % (Auto) % Baso % (Auto) % Neut # (Auto) (1.8-7.7) 10^3/u L Lymph # (Auto) (0.8-4.8) 10^3/u L [place] # (Auto) (0.2-0.9) 10^3/u L Eos # (Auto) (0.0-0.8) 10^3/u L Baso # (Auto) (0.0-0.1) 10^3/u L Nucleated RBC % (a uto) % Nucleated RBCs # /100WBC Sodium (136-145) mmol/L Potassium (3.5-5.1) mmol/L Chloride (98-107) mmol/L Carbon Dioxide (22-29) mmol/L Anion Gap (5-19) BUN (6-20) mg/dL Creatinine (0.7-1.2) mg/dL GFR Calculation (90-130) mL/min Glucose (65-115) mg/dL Calculated Osmolal ity (285-295) mOsm/k g Calcium (8.5-10.5) mg/dL Total Bilirubin (0.15-1.2) mg/dL AST (0-40) U/L ALT (0-41) U/L Alkaline Phosphata se (40-130) IU/L Total Protein (6.6-8.7) g/dL Albumin (3.5-5.2) g/dL Globulin (1.3-4.6) g/dL TSH (0.27-4.20) uIU/ mL Urine Color (Yellow) Urine Appearance (CLEAR) Urine pH (5-7) Ur Specific Gravit y (1.005-1.030) Urine Protein (Negative) Urine Glucose (UA) (Normal) Urine Ketones (Negative) Urine Blood (Negative) Urine Nitrate (Negative) Urine Bilirubin (Negative) Urine Urobilinogen (Negative) mg/dL Ur Leukocyte Mari ase (Negative) Salicylates (3-10) mg/dL Urine Opiates Scre en Negative (Negative) ng/mL Acetaminophen (10-30) ug/mL Ur Barbiturates Sc reen Negative (Negative) ng/mL Ur Phencyclidine S crn Negative (Negative) ng/mL Ur Amphetamines Sc reen Positive H (Negative) ng/mL U Benzodiazepines Scrn Negative (Negative) ng/mL Urine Cocaine Scre en Negative (Negative) ng/mL U Marijuana (THC) Screen Negative (Negative) ng/mL Ethyl Alcohol (0-10) mg/dL Imaging Data^: Other CT: Attestation: I personally reviewed and interpreted this imaging study as follows: Radiologist's impression: [address] [address] [address] Scan Report Signed Patient: Mcihael Jackson Jr #: [id number] : 1980Acct#:[id number] Age/Sex: 40 / MADM Date: 09/03/20 Loc: ERRoom/Bed: Attending Dr: Ordering Provider/Ordering MD: Martinez Alarcon [place] [facility] [place] of Service: 09/03/20 Procedure(s): CT neck w con* [id number] Accession Number(s): [id number] Report Number: [id number] PROCEDURE INFORMATION: Exam: CT Neck With Contrast Exam date and time: 09/03/2020 3:34 PM Age: 40 years old Clinical indication: Injury or trauma; Asphyxiation (suffocation); Patient HX: Attempted self strangulation; Additional info: Attempted stangulation TECHNIQUE: Imaging protocol: Computed tomography images of the neck with intravenous contrast. Radiation optimization: All CT scans at this facility use at least one of these dose optimization techniques: automated exposure control; mA and/or kV adjustment per patient size (includes targeted exams where dose is matched to clinical indication); or iterative reconstruction. Contrast material: OMNI 300; Contrast volume: 95 ml; Contrast route: INTRAVENOUS (IV); COMPARISON: No relevant prior studies available. RADIATION DOSE METRICS: Total DLP (mGy-cm): 663.62 FINDINGS: Nasopharynx: Unremarkable. Dental: No apical pneumothorax demonstrated. Oropharynx: No significant tonsillar enlargement. No peritonsillar abscess. Hypopharynx: Unremarkable. Larynx: Unremarkable. No epiglotic enlargement. Retropharyngeal space: Unremarkable. Submandibular/Parotid glands: Glands are normal in size. Thyroid: No enlarged or calcified nodules. Lymph nodes: No lymphadenopathy. Trachea: Unremarkable. Lungs: The lung apices are unremarkable. Bones/joints: No fracture or other acute osseous abnormality. Cervical vertebral body heights are preserved. No fractures are noted. Vertebral alignment is physiologic. Vasculature: Vascular structures appear unremarkable. Carotid arteries and jugular veins are patent. Soft tissues: No significant soft tissue swelling. CT/CT neck w con* [id number] IMPRESSION: Unremarkable CT of the soft tissue neck. No acute abnormality. Radiation Dose CTDIVOL = (mGy): DLP = 663.62 (mGy-cm) Dictated By:Broderick Mcclendon MD Signed By:Broderick Mcclendon MDSigned Date/Time:09/03/201626 DD/ 162 Discharge Plan Discharge Patient Disposition: Admitted As Inpatient Admit Provider: Rolando Hooker Clinical Impression: Suicide attempt, Methamphetamine abuse Condition: Stable Coding Level of Care Code ED Director Of [employer] for Halle Davis
[2020-09-03 20:22] VITALS: BP 125/66; PULSE 87; RESP 16; TEMP 36.8; O2SAT 98
--- NOTE | 2020-09-03 22:56 | PC.NURSE ---
pm assessment Limited assessment. Pt is in his bed at beginning of shift. He did get up for a snack. He returned to bed. Denies SI and contracts to safety.
--- NOTE | 2020-09-04 04:02 | PC.NURSE ---
Limited interaction Pt is avoidant of staff. He pretends he is sleeping when aide is attempted to take vitals this evening. He also refused to answer questions. According to physicians report, pt tried to strangle himself
[2020-09-04 06:00] VITALS: BP 110/73; PULSE 81; RESP 16; TEMP 36.7; O2SAT 98
[2020-09-04] MEDS: citalopram 20 mg Tablet 10 MG PO (08:16)
[2020-09-04 14:00] VITALS: BP 119/75; PULSE 76; RESP 18; TEMP 37.5; O2SAT 99
--- NOTE | 2020-09-04 16:06 | PC.RESP ---
Smoking Cessation information sent to patient.
--- NOTE | 2020-09-04 16:53 | PM.NHP ---
Providers/Chief Complaint Admitting Physician: Rolando Hooker MD Chief Complaint: POST STRANGULATION, RESP DISTRESS HPI NPU History of Present Illness Michael Jackson Jr is a 40 year old male who presented to the emergency room with the following report: Chief Complaint: Airway/Esophagus Foreign Body Stated Complaint: POST STRANGULATION, RESP DISTRESS Time Seen by Provider: 09/03/20 14:10 Source: patient, EMS and police Mode of arrival: EMS Limitations: no limitations History of Present Illness: HPI Narrative: This patient is a 40-year-old male with a history of bipolar disorder, who presents to the emergency department from [facility]. He was placed in intermediate earlier this morning. Patient stated that he had used methamphetamines before he was put in intermediate. He also states that anytime has used methamphetamines he gets suicidal. While he was in intermediate he attempted to strangle himself by wrapping a sheet around his neck. He has therefore brought to the emergency department for evaluation. complaint: suicidal ideation and other (Suicide attempt) Context: recent drug abuse Associated psychiatric symptoms: depression and suicidal ideation Associated symptoms: Reports depression; Deny auditory hallucinations, visual hallucinations, delusions, homicidal ideation or suicidal ideation. He was admitted to the neuropsychiatric unit for definitive treatment of those issues. Mcihael presented today reporting that he has a long history of inpatient psychiatric evaluations many through [facility] [facility]. In reviewing his chart this will be considered accurate given he had 13 hospitalizations with the last one starting April 07, 2017. He presents today reporting that he struggles mildly addiction and that he wants to get off of the drugs and reports that he has a bed date at [facility] already but he reports it to be in the distant future. He reports that due to his use he may have gotten involved in some shady dealings and was arrested by the police. He reports that he went to the intermediate and at the intermediate he was endorsing serious thoughts to kill himself and was being self aggressive. He reports that the officer brought him to the emergency room and released the charges allowing him to be open to seek treatment, thus accomplishing his goal. He denies interested in doing engaged in mental health treatment only seeking to manage the addiction via a rehab. He denies any desire to wait here until the rehab becomes available, plus he endorses needing to be at the court house possibly by 9 AM tomorrow. We reviewed one of his last inpatient hospitalizations here for historical purposes endorsing was a reflection of his psychosocial circumstances then. An excerpt is included below. He denied any lethality and reported inability to contract for safety. Per previous [facility] inpatient eval: History of Present Illness Date of Service: Mar 29, 2017 Chief Complaint: Just a little depressed and high anxiety. HPI: This patient is known to this service disease had multiple psychiatric hospitalizations. The patient is long-standing history of methamphetamine addiction. Patient presented to the emergency room and reported that he was having suicidal thoughts. He also admit some superficial cuts to the lateral aspects of his neck. These did not require any effort to close the form of sutures or diane. Patient states his been abusing methamphetamine. He also endorses that depressive symptoms have intensified recently. Therefore, patient presented to the emergency room and requested psychiatric hospitalization. While the patient endorses acute depressive symptoms, I am not able to clearly elicit a history of bipolar disorder as his history of drug abuse has been so prolific. Nonetheless, he certainly endorses symptoms that seem to be consistent with a major depressive episode. Patient agrees that methamphetamine is been a huge problem for him. I have some suspicion that he may be avoiding legal complications as part of his presentation. The patient does endorse that he is been treated relatively effectively with lithium in the past. It should be noted that he persistently pursues benzodiazepine administration. Obviously, take the patient be med seeking. I explained that I would not schedule a benzodiazepine for him but some Ativan is available on a when necessary basis. I did explain that I would schedule some gabapentin for anxiolysis. He agrees Allergies: Coded Allergies: MORPHINE (Verified Allergy, Unknown, 02/19/16) Active Meds: Current Hospital Medications: Medications (Trade) Dose Ordered Sig/Kelsie Route PRN Reason Start Time Stop Time Status Last Admin Dose Admin Lorazepam (Ativan Tab) 0.5 mg Q4H PRN PO FOR MILD ANXIETY 03/28/17 14:30 Lorazepam (Ativan Tab) 1 mg Q4H PRN PO FOR MODERATE ANXIETY 03/28/17 14:30 03/28/17 17:17 Lorazepam (Ativan Tab) 2 mg Q4H PRN PO FOR SEVERE ANXIETY 03/28/17 14:30 03/28/17 21:43 Lorazepam (Ativan Inj) 2 mg Q4H PRN IM For Severe Aggression 03/28/17 14:30 Haloperidol Lactate (Haldol Inj) 5 mg Q4H PRN IM Severe Aggression 03/28/17 14:30 Diphenhydramine HCl (Benadryl Inj) 50 mg ONCE PRN IV Severe Extrapyramidal Symptoms 03/28/17 14:30 Benztropine Mesylate (Cogentin Tab) 1 mg BID PRN PO Mild Extrapyramidal symptoms 03/28/17 14:30 Benztropine Mesylate (Cogentin Inj) 1 mg ONCE PRN IM Severe Extrapyramidal Symptom 03/28/17 14:30 Acetaminophen (Tylenol Tab) 650 mg Q4H PRN PO FOR MILD PAIN 03/28/17 14:30 Trazodone HCl (Trazodone) 50 mg BEDTIME PRN PO FOR SLEEP 03/28/17 14:30 03/28/17 21:38 Nicotine (Nicoderm Patch) 21 mg DAILY PRN TD FOR WITHDRAWAL 03/28/17 14:30 Nicotine Polacrilex (Nicotine Gum) 2 mg Q2H PRN PO Withdrawal 03/28/17 14:30 Haloperidol (Haldol Tab) 5 mg Q4H PRN PO For agitation 03/28/17 14:30 Lorazepam (Ativan Tab) 2 mg Q4H PRN PO FOR AGITATION 03/28/17 14:30 [place] Carbonate ([place] Carbonate) 300 mg BID PO 03/29/17 22:00 Gabapentin (Neurontin Cap) 300 mg TID PO 03/29/17 14:00 03/29/17 13:55 Past Medical History Past Medical History: Hepatitis C Other Past Social History: Patient is single Endorses that he has children but does not specify number He is unemployed Currently on probation Methamphetamine addict Review of Systems Psych: Complains of: Anger issues, Anxiety, Depression Meds NPU Home Medications Medication Instructions Recorded Confirmed Last Taken Type citalopram 10 mg PO DAILY 09/03/20 09/03/20 09/03/20 History trazodone 50 mg PO DAILY 09/03/20 09/03/20 09/02/20 History Allergies Allergy/AdvReac Type Severity Reaction Status Date / Time morphine Allergy ALGY-Rash Verified 01/09/20 07:26 PFSH NPU PFSH: Social History Smoking and tobacco status: current every day smoker Mental Status Exam MSE Comments: This is an obese white male with hospital scrubs on, looking disheveled with limited eye contact. No abnormal movements except for psychomotor retardation. Mostly cooperative with exam in no acute distress. Speech was decreased rate normal volume. Mood described as okay, affect subdued. Thought process. Thought content: Patient denied suicidal or homicidal ideation, there were no delusions reported or noted, he denied any auditory or visual hallucinations. Attention and concentration were intact and memory appeared mostly reliable but none were formally tested. He is alert and oriented x3. Insight judgment appear limited, impulse control appears limited. Vitals/I&O/Wt Last Vital Signs Temp 97.7 F 09/04/20 20:11 Pulse 84 09/04/20 20:11 Resp 17 09/04/20 20:11 BP 121/80 09/04/20 20:11 Pulse Ox 94 09/04/20 20:11 Weight last 48 hrs Weight 97.522 kg Data NPU : 09/03/20 14:33 09/03/20 14:33 A&P Assessment and plan (1) Suicide attempt: Status: Acute (2) Methamphetamine abuse: Status: Acute (3) Acute adjustment disorder with mixed disturbance of emotions and conduct: Status: Acute (4) Malingering: Status: Acute Additional A&P Information This is a 40-year-old white male with active addiction who presents having been detained by the police and brought to the emergency department reporting that he and her suicidality to get out of saying in intermediate endorsing a desire to leave with a reported court date tomorrow morning. 1. Continue current medication. 2. Continue every 15 minute checks for safety. 3. Encourage individual, group and milieu therapy. 4. Encourage sober living treatment at the highest level of care to which he is willing to commit. 5. We will observe under the tenants of the 96-hour hold for evaluation of safety for discharge. If he continues to report absence of lethality and he is noted that a court date in the morning we will discharge tomorrow morning. Involuntary Hold Information 96 Hour Hold: 96 Hour Involuntary Admission: Yes 96 Hour Hold Ending Date: 09/09/20 96 Hour Hold Ending Time: 14:10 Attestations NPU Medical Necessity Statement*: Inpatient hospitalization is medically necessary and the clinically appropriate intervention at this time. We will recommend medications and make changes as indicated. He will be in the hospital over 2 midnight. Likely length of stay 1 to 3 days. 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
[2020-09-04 20:11] VITALS: BP 121/80; PULSE 84; RESP 17; TEMP 36.5; O2SAT 94
[2020-09-04] MEDS: trazodone 50 mg Tablet PO (21:37)
[2020-09-05 06:00] VITALS: BP 110/66; PULSE 66; RESP 16; TEMP 36.5; O2SAT 96
[2020-09-05] MEDS: citalopram 20 mg Tablet 10 MG PO (08:14)
[2020-09-05 08:19] VITALS: BP 110/66; PULSE 66; RESP 16; TEMP 36.5; O2SAT 96
--- NOTE | 2020-09-05 08:19 | PM.NDC ---
Diagnoses at Discharge Discharge Diagnosis (1) Suicide attempt: Status: Resolved (2) Methamphetamine abuse: Status: Acute (3) Acute adjustment disorder with mixed disturbance of emotions and conduct: Status: Acute (4) Malingering: Status: Acute Reason for Visit Reason for Visit: POST STRANGULATION, RESP DISTRESS Brief History: History of Present Illness Michael Jackson Jr is a 40 year old male who presented to the emergency room with the following report: Chief Complaint: Airway/Esophagus Foreign Body Stated Complaint: POST STRANGULATION, RESP DISTRESS Time Seen by Provider: 09/03/20 14:10 Source: patient, EMS and police Mode of arrival: EMS Limitations: no limitations History of Present Illness: HPI Narrative: This patient is a 40-year-old male with a history of bipolar disorder, who presents to the emergency department from [facility]. He was placed in skilled nursing earlier this morning. Patient stated that he had used methamphetamines before he was put in skilled nursing. He also states that anytime has used methamphetamines he gets suicidal. While he was in skilled nursing he attempted to strangle himself by wrapping a sheet around his neck. He has therefore brought to the emergency department for evaluation. MD complaint: suicidal ideation and other (Suicide attempt) Context: recent drug abuse Associated psychiatric symptoms: depression and suicidal ideation Associated symptoms: Reports depression; Deny auditory hallucinations, visual hallucinations, delusions, homicidal ideation or suicidal ideation. He was admitted to the neuropsychiatric unit for definitive treatment of those issues. Michael presented today reporting that he has a long history of inpatient psychiatric [place] many [place] [facility] In reviewing his chart this will be considered accurate given he had 13 hospitalizations with the last one starting April 07, 2017. He presents today reporting that he struggles mildly addiction and that he wants to get off of the drugs and reports that he has a bed date at [facility] already but he reports it to be in the distant future. He reports that due to his use he may have gotten involved in some shady dealings and was arrested by the police. He reports that he went to the skilled nursing and at the skilled nursing he was endorsing serious thoughts to kill himself and was being self aggressive. He reports that the officer brought him to the emergency room and released the charges allowing him to be open to seek treatment, thus accomplishing his goal. He denies interested in doing engaged in mental health treatment only seeking to manage the addiction via a rehab. He denies any desire to wait here until the rehab becomes available, plus he endorses needing to be at the court house possibly by 9 AM tomorrow. We reviewed one of his last inpatient hospitalizations here for historical purposes endorsing was a reflection of his psychosocial circumstances then. An excerpt is included below. He denied any lethality and reported inability to contract for safety. [place] previous [facility] [place]: History of Present Illness Date of Service: Mar 29, 2017 Chief Complaint: Just a little depressed and high anxiety. HPI: This patient is known to this service disease had multiple psychiatric hospitalizations. The patient is long-standing history of methamphetamine addiction. Patient presented to the emergency room and reported that he was having suicidal thoughts. He also admit some superficial cuts to the lateral aspects of his neck. These did not require any effort to close the form of sutures or diane. Patient states his been abusing methamphetamine. He also endorses that depressive symptoms have intensified recently. Therefore, patient presented to the emergency room and requested psychiatric hospitalization. While the patient endorses acute depressive symptoms, I am not able to clearly elicit a history of bipolar disorder as his history of drug abuse has been so prolific. Nonetheless, he certainly endorses symptoms that seem to be consistent with a major depressive episode. Patient agrees that methamphetamine is been a huge problem for him. I have some suspicion that he may be avoiding legal complications as part of his presentation. The patient does endorse that he is been treated relatively effectively with lithium in the past. It should be noted that he persistently pursues benzodiazepine administration. Obviously, take the patient be med seeking. I explained that I would not schedule a benzodiazepine for him but some Ativan is available on a when necessary basis. I did explain that I would schedule some gabapentin for anxiolysis. He agrees Allergies: Coded Allergies: MORPHINE (Verified Allergy, Unknown, 02/19/16) Active Meds: Current Hospital Medications: Medications (Trade) Dose Ordered Sig/Kelsie Route PRN Reason Start Time Stop Time Status Last Admin Dose Admin Lorazepam (Ativan Tab) 0.5 mg Q4H PRN PO FOR MILD ANXIETY 03/28/17 14:30 Lorazepam (Ativan Tab) 1 mg Q4H PRN PO FOR MODERATE ANXIETY 03/28/17 14:30 03/28/17 17:17 Lorazepam (Ativan Tab) 2 mg Q4H PRN PO FOR SEVERE ANXIETY 03/28/17 14:30 03/28/17 21:43 Lorazepam (Ativan Inj) 2 mg Q4H PRN IM For Severe Aggression 03/28/17 14:30 Haloperidol Lactate (Haldol Inj) 5 mg Q4H PRN IM Severe Aggression 03/28/17 14:30 Diphenhydramine HCl (Benadryl Inj) 50 mg ONCE PRN IV Severe Extrapyramidal Symptoms 03/28/17 14:30 Benztropine Mesylate (Cogentin Tab) 1 mg BID PRN PO Mild Extrapyramidal symptoms 03/28/17 14:30 Benztropine Mesylate (Cogentin Inj) 1 mg ONCE PRN IM Severe Extrapyramidal Symptom 03/28/17 14:30 Acetaminophen (Tylenol Tab) 650 mg Q4H PRN PO FOR MILD PAIN 03/28/17 14:30 Trazodone HCl (Trazodone) 50 mg BEDTIME PRN PO FOR SLEEP 03/28/17 14:30 03/28/17 21:38 Nicotine (Nicoderm Patch) 21 mg DAILY PRN TD FOR WITHDRAWAL 03/28/17 14:30 Nicotine Polacrilex (Nicotine Gum) 2 mg Q2H PRN PO Withdrawal 03/28/17 14:30 Haloperidol (Haldol Tab) 5 mg Q4H PRN PO For agitation 03/28/17 14:30 Lorazepam (Ativan Tab) 2 mg Q4H PRN PO FOR AGITATION 03/28/17 14:30 [place] Carbonate ([place] Carbonate) 300 mg BID PO 03/29/17 22:00 Gabapentin (Neurontin Cap) 300 mg TID PO 03/29/17 14:00 03/29/17 13:55 Past Medical History Past Medical History: Hepatitis C Other Past Social History: Patient is single Endorses that he has children but does not specify number He is unemployed Currently on probation Methamphetamine addict Review of Systems Psych: Complains of: Anger issues, Anxiety, Depression Hospital Course Hospital Course Michael presented to the emergency department reporting that the suicidal and struggling with his mental health. Additionally he was struggling with active addiction. He presented with the police having been in skilled nursing and reportedly trying to hang himself. He was admitted to the neuropsychiatric unit for definitive treatment of those issues. On the unit he quickly acclimated to the individual, group and milieu therapies. He identified that he in fact was saying the suicidal statements in hopes of being released from skilled nursing which he was. He does have a hearing today that he would like to attend. He was able to contract for safety. He was open to having his home medications continued. He showed modest improvement. During the hospitalization he had routine laboratory studies which were within normal limits except for few outliers. Additionally had a general medical evaluation which was also within normal limits and revealed no new acute processes. Discharge summary: At the time of discharge, he was absent lethality and psychosis. His mood and anxiety were well managed. He endorsed a plan to avoid all drugs of abuse and follow-up with the recommendations of the treatment team for aftercare. He was evaluated and deemed to be absent credible [place] and had achieved a maximum benefit from an inpatient hospitalization, so he was discharged. Involuntary Hold Information 96 Hour Hold: 96 Hour Involuntary Admission: Yes 96 Hour Hold Ending Date: 09/09/20 96 Hour Hold Ending Time: 14:10 Mental Status Exam MSE Comments: This is an obese white male with hospital scrubs on, with adequate grooming and eye contact. No abnormal movements except for mild psychomotor retardation. Cooperative with exam in no acute distress. Speech was more normal rate and volume. Mood described pretty good, affect less subdued. Thought process. Thought content: Patient denied suicidal or homicidal ideation, there were no delusions reported or noted, he denied any auditory or visual hallucinations. Attention and concentration were intact and memory appeared mostly reliable but none were formally tested. He is alert and oriented x3. Insight judgment appear limited, impulse control appears limited. Discharge Data Data Completed and Pending: Completed Studies During Hospitalization Category Date Time Status CT neck w con* [id number] Urgent Cat Scan 09/03/20 14:21 Completed Vitals: Last Vital Signs Temp 97.7 F 09/05/20 06:00 Pulse 66 09/05/20 06:00 Resp 16 09/05/20 06:00 BP 110/66 09/05/20 06:00 Pulse Ox 96 09/05/20 06:00 Discharge Plan Discharge Patient Disposition: Home Condition: Stable Prescriptions: Continued trazodone 50 mg Tablet 50 mg PO DAILY 30 Days Qty: 30 RF: 1 citalopram 10 mg Tablet 10 mg PO DAILY 30 Days Qty: 30 RF: 1 Discharge Orders: Discharge Order (Routine); Ordered 09/05/20 Ordered By: Rolando Hooker Referrals: [facility] [Outside] - 1-3 days (call or stop by and request outpatient mental health services. ) [facility] [Outside] - 1-3 days (call daily and check for any update on getting in sooner to rehab. ) Discharge Diet: Regular Discharge Activity: Resume usual activity Discharge Attestations NPU Time Spent in Discharge Care*: less than 30 min Specific Discharge Activities: Specific discharge activities: educating patient, discussing with case manager specialist/social workers/dc planners, documenting/other paperwork and evaluating patient/reviewing data Coding Level of Care Code Acute Fire Official for [facility] Fwd Diagnoses Suicide attempt T14.91XA Methamphetamine abuse F15.10 Acute adjustment disorder with mixed disturbance of emotions and conduct F43.25 Malingering Z76.5
== END 2020-09-05 08:26 | disposition home or self-care (01) | DRG 882 ==
LOC: ER 14:34 → NP 17:44
PROVIDERS: Admitting Provider Psychiatry & Neurology Psychiatry; Emergency Provider Family Medicine; Visit Provider Psychiatry & Neurology Psychiatry
DX: F43.25 Adjustment disorder with mixed disturbance of emotions and conduct (principal); R45.851 Suicidal ideations; Z76.5 Malingerer [conscious simulation]; F17.210 Nicotine dependence, cigarettes, uncomplicated; F15.10 Other stimulant abuse, uncomplicated; B19.20 Unspecified viral hepatitis C without hepatic coma
CPT/HCPCS: 12345; 70491; 80053; 80306; 80307; 81003; 84443; 85025; 99282; Q9967

== ENCOUNTER 2021-01-12 09:35 | Emergency (ER) | payer SELFPAY ==
[2021-01-12 09:36] VITALS: BP 135/80; PULSE 91; RESP 18; TEMP 36.7; O2SAT 97; BMI 32.6
--- NOTE | 2021-01-12 09:56 | W.ED.DIZZY ---
HPI - Dizziness General: Chief Complaint: Dizziness Stated Complaint: NOT FEELING WELL/ METH USE Time Seen by Provider: 01/12/21 09:38 History of Present Illness: HPI Narrative: 40-year-old male presents to ER via EMS. EMS reported they were called to [facility] here in [place] when they arrived patient was in the court house he stated he was not feeling right was confused and disoriented. He requested EMS fax a medical release to release him from his court date. When he arrives here he is not in any respiratory distress. He denies any shortness of breath chest pain abdominal pain no dysuria urgency or frequency denies fever no nausea vomiting or diarrhea. He does admit to a history of methamphetamine abuse states he last used within the last 24 hours. Pertinent past history: other (Substance abuse) Onset (ago): minute(s) Timing: sudden onset Severity: mild Exacerbating factors: nothing Relieving factors: nothing Associated symptoms: Denies change in hearing, chest pain, chills, cough, diaphoresis, ear discharge, ear pressure, fevers/chills, headache(s), malaise, nausea, nasal congestion, palpitations, rash, short of breath, syncope, tinnitus, vomiting or weakness Associated neuro symptoms: Reports confusion; Deny difficulty speaking, dysphagia, diplopia, extremity weakness, facial numbness, facial weakness, gait changes, numbness in extremities or visual changes Review of Systems Const: Denies: chills, malaise or diaphoresis ENMT: Denies: ear discharge, change in hearing, tinnitus or nasal congestion Card: Denies: chest pain, palpitations or syncope Resp: Denies: dyspnea, productive cough or non-productive cough GI: Denies: nausea, vomiting or dysphagia : Denies: flank pain, dysuria, urinary frequency or urinary urgency Skin/Breast: Denies: rash or pruritus Neuro: Reports: confusion; Denies: headache(s) or numbness in extremities PFSH ED PFSH: Social History Smoking and tobacco status: current every day smoker Physical Exam Const: COMMON NORMALS: no acute distress GENERAL APPEARANCE: cooperative and comfortable HENMT: COMMON NORMALS: normocephalic, atraumatic and hearing grossly normal bilaterally HEAD & SCALP: normocephalic and atraumatic Neck/C-Spine: COMMON NORMALS: no JVD Resp: COMMON NORMALS: normal respiratory effort, No retractions, No use of accessory muscles and clear to auscultation bilaterally AUSCULTATION: clear to auscultation bilaterally Cardio: COMMON NORMALS: no JVD, regular rate, regular rhythm and No murmurs present (Cardio) RATE: regular rate RHYTHM: regular rhythm GI: COMMON NORMALS: Soft to palpation and No hepatosplenomegaly present AUSCULTATION: Yes normoactive bowel sounds PALPATION: Yes Soft to palpation, No Tenderness to palpation present (GI), No Guarding due to palpation present (GI) and Yes No hepatosplenomegaly present Extremity: COMMON NORMALS: normal to inspection, capillary refill normal, no clubbing, cyanosis or edema, no calf tenderness and no pedal edema Skin: COMMON NORMALS: no rashes or lesions noted GENERAL SKIN EXAM: no rashes or lesions noted Course Vital Signs: Vital signs: Vital Signs Temperature 98.0 F 01/12/21 09:36 Pulse Rate 81 01/12/21 12:27 Respiratory Rate 21 H 01/12/21 12:27 Blood Pressure 112/81 01/12/21 12:27 Pulse Oximetry 99 01/12/21 12:27 MDM - Dizziness MDM Narrative: Medical decision making narrative: Patient left the department without he did eloped we had to convince him to stay at one point he did not want his blood drawn. When he first arrived he appears to be under the influence when he returned to the front end engineer he stated he wanted to finish being seen but could not find his room back we had had security looking form in the building not been able to find him. Prior to him eloping from the ER he had been in the CT department and a vial of something fell out of his pocket he quickly retreated and put it back in his pocket would not discuss it with the oracle technical architect. When he returned he appears to be more under the influence and is does have a slightly higher heart rate on reexam at the bedside. All other exams are unchanged. Neurologically he is intact without signs of stroke. His drug screen is positive for amphetamines which was anticipated. I believe his altered mental status most related to his drug use. He did not want to stay any longer and was discharged home he can return if he has further problems. Lab Data: Labs: Lab Results 01/12/21 01/12/21 01/12/21 Range/Units 11:15 11:15 11:16 WBC 5.8 (4.0-10.0) 10^3/ uL RBC 4.64 (4.1-5.3) 10^6/u L Hgb 14.8 (11.7-16.6) g/dL Hct 43.9 (42.0-52.0) % MCV 94.6 H (80-94) fL MCH 31.9 (28.0-34.0) pg MCHC 33.7 (30.0-36.0) g/dL RDW 13.2 (12.1-15.1) % Plt Count 199 (130-400) 10^3/c mm MPV 9.7 (7.4-10.4) fL Neut % (Auto) 56.3 % Lymph % (Auto) 31.0 % [place] % (Auto) 9.3 % Eos % (Auto) 2.6 % Baso % (Auto) 0.5 % Neut # (Auto) 3.25 (1.8-7.7) 10^3/u L Lymph # (Auto) 1.8 (0.8-4.8) 10^3/u L [place] # (Auto) 0.5 (0.2-0.9) 10^3/u L Eos # (Auto) 0.2 (0.0-0.8) 10^3/u L Baso # (Auto) 0.0 (0.0-0.1) 10^3/u L Nucleated RBC % (a uto) 0 % Nucleated RBCs # 0.0 /100WBC Sodium 138 (136-145) mmol/L Potassium 4.4 (3.5-5.1) mmol/L Chloride 104 (98-107) mmol/L Carbon Dioxide 26 (22-29) mmol/L Anion Gap 12.4 (5-19) BUN 14 (6-20) mg/dL Creatinine 0.7 (0.7-1.2) mg/dL GFR Calculation 124.9 (90-130) mL/min Glucose 126 H (65-115) mg/dL Calculated Osmolal ity 288 (285-295) mOsm/k g Calcium 9.5 (8.5-10.5) mg/dL Total Bilirubin 0.9 (0.15-1.2) mg/dL AST 85 H (0-40) U/L ALT 172 H (0-41) U/L Alkaline Phosphata se 71 (40-130) IU/L Creatine Kinase 206 (39-308) U/L Total Protein 7.8 (6.6-8.7) g/dL Albumin 4.1 (3.5-5.2) g/dL Globulin 3.7 (1.3-4.6) g/dL Urine Opiates Scre en Negative (Negative) ng/mL Ur Barbiturates Sc reen Negative (Negative) ng/mL Ur Phencyclidine S crn Negative (Negative) ng/mL Ur Amphetamines Sc reen Positive H (Negative) ng/mL U Benzodiazepines Scrn Negative (Negative) ng/mL Urine Cocaine Scre en Negative (Negative) ng/mL U Marijuana (THC) Screen Negative (Negative) ng/mL Discharge Plan Discharge Patient Disposition: Home Clinical Impression: Methamphetamine abuse Condition: Stable Prescriptions: No Action No Known Home Medications RF: 0 Discharge Orders: Discharge ED (Routine); Ordered 01/12/21 Ordered By: Savage Terrell Discharge Diet: Usual diet Discharge Activity: Resume usual activity Patient Instructions: Opioid Safety Activity Restrictions/Additional Instructions: Do not use methamphetamine Coding Level of Care Code ED Feeder Operator for Halle Fwd Exam Comprehensive
--- NOTE | 2021-01-12 09:57 | CT_ITS ---
WS: [id number] CT HEAD NONCONTRAST HISTORY: AMS TECHNIQUE: Contiguous axial imaging performed through the brain in 2.5 mm imaging. Bone and soft tiss ue windows. Sagittal and coronal reformats reviewed. All CT scans at [facility] use at ast one of these dose optimization techniques: automated exposure control; mA and/or kV adjustment pe r patient size (includes targeted exams where dose is matched to clinical indication); or iterative r econstruction. DLP: 953.84 mGy.cm COMPARISON: 01/18/2020 No acute intracranial hemorrhage, midline shift or mass effect. No atrophy or prior infarcts or herniation. Ventricles: Normal size with no hydrocephalus. No inferior displacement of the cerebellar tonsils. Paranasal sinuses: As visualized are clear. Mastoid air cells: Well pneumatized. Calvarium and scalp: No fracture. Small amount of edema over the posterior parietal region which may be dependent edema. CT/CT head wo con* [id number] IMPRESSION: Negative head CT.
--- NOTE | 2021-01-12 09:57 | XRR_ITS ---
PROCEDURE INFORMATION: Exam: XR Chest Exam date and time: 01/12/2021 10:05 AM Age: 40 years old Clinical indication: Cough and dyspnea and shortness of breath; Additional info: Dyspnea/cough TECHNIQUE: Imaging protocol: XR of the chest Views: 1 view. COMPARISON: CR XR chest 1V portable [id number] 01/18/2020 4:40 PM FINDINGS: Lungs: Hazy airspace opacities at the lung bases, which may represent atelectasis or pneumonia in the adequate clinical setting. No pleural effusion or pneumothorax. Pleural spaces: See Lungs finding. Heart/Mediastinum: Stable cardiomediastinal silhouette. Bones/joints: Unremarkable. XR/XR chest 1V portable [id number] IMPRESSION: Bibasilar atelectasis versus early pneumonia. Clinical correlation is recommended.
--- NOTE | 2021-01-12 10:28 | PC.NURSE ---
pt was at court today and called EMS prior to his hearing and stated I don't feel good. EMS brought pt to ED and pt refused ABG stating I don't want my artery stuck. explained to pt that this was necessary for his workup to diagnose. pt was educated on the risks of leaving without treatment if he was refusing testing but that it was his decision if he chose to leave AMA. He then agreed to a CT scan. CT reported that pt dropped a small vial and quickly put it back into his pocket. security was called to assist with pt but before this was addressed, pt left AMA without notifying nurse.
[2021-01-12 11:24] VITALS: BP 108/49; PULSE 77; RESP 18; O2SAT 99
[2021-01-12 11:26] VITALS: PULSE 88
[2021-01-12 11:31] LABS: Basophils % 0.5 %; Eosinophils # 0.2 10^3/uL (0.0-0.8); Eosinophils % 2.6 %; Hematocrit 43.9 % (42.0-52.0); Hemoglobin 14.8 g/dL (11.7-16.6); Lymphocytes # 1.8 10^3/uL (0.8-4.8); Mean Corpuscular HGB Conc 33.7 g/dL (30.0-36.0); Mean Corpuscular Hemoglobin 31.9 pg (28.0-34.0); Mean Corpuscular Volume 94.6 fL (80-94); Mean Platelet Volume 9.7 fL (7.4-10.4); Monocytes # 0.5 10^3/uL (0.2-0.9); Monocytes % 9.3 %; Neutrophils # 3.25 10^3/uL (1.8-7.7); Neutrophils % 56.3 %; Nucleated Red Blood Cells % 0 %; Platelet Count 199 10^3/cmm (130-400); Red Blood Count 4.64 10^6/uL (4.1-5.3); Red Cell Distribution Width 13.2 % (12.1-15.1); White Blood Count 5.8 10^3/uL (4.0-10.0)
[2021-01-12 11:47] LABS: Alanine Aminotransferase 172 U/L (0-41); Albumin Level 4.1 g/dL (3.5-5.2); Alkaline Phosphatase 71 IU/L (40-130); Anion Gap 12.4 (5-19); Aspartate Amino Transferase 85 U/L (0-40); Blood Urea Nitrogen 14 mg/dL (6-20); Calcium 9.5 mg/dL (8.5-10.5); Carbon Dioxide 26 mmol/L (22-29); Chloride 104 mmol/L (98-107); Creatine Phosphokinase 206 U/L (39-308); Globulin 3.7 g/dL (1.3-4.6); Glomerular Filtration Rate 124.9 mL/min (90-130); Glucose 126 mg/dL (65-115); Osmolality Calculated 288 mOsm/kg (285-295); Potassium 4.4 mmol/L (3.5-5.1); Sodium 138 mmol/L (136-145); Total Bilirubin 0.9 mg/dL (0.15-1.2); Total Protein 7.8 g/dL (6.6-8.7)
[2021-01-12 12:27] VITALS: BP 112/81; PULSE 81; RESP 21; O2SAT 99
[2021-01-12 12:29] LABS: Amphetamines Screen Urine Positive (Negative); Barbiturates Screen Urine Negative (Negative); Benzodiazepines Screen Urine Negative (Negative); Cocaine Screen Urine Negative (Negative); Opiate Screen Urine Negative (Negative); PCP Screen Urine Negative (Negative); THC Screen Urine Negative (Negative)
[2021-01-12 12:44] VITALS: BP 112/81; PULSE 91; RESP 21; O2SAT 99
[2021-01-12 13:19] LABS: Add Urine Microscopic? NO
[2021-01-12 13:30] LABS: Bilirubin Urine Neg (Negative); Blood Urine Neg (Negative); Glucose Urine UA Norm (Normal); Ketones Urine Negative (Negative); Leukocyte Esterase Urine Negative (Negative); Nitrate Urine Negative (Negative); Protein Urine Neg (Negative); Specific Gravity, Urine 1.015 (1.005-1.030); Urine Appearance Clear (CLEAR); Urine Color Yellow (Yellow); Urobilinogen Urine Norm (Negative); pH Urine 5 (5-7)
== END 2021-01-12 12:49 | disposition home or self-care (01) ==
PROVIDERS: Emergency Provider Family Medicine
DX: F15.10 Other stimulant abuse, uncomplicated (principal); F17.210 Nicotine dependence, cigarettes, uncomplicated
CPT/HCPCS: 70450; 71045; 80053; 80306; 81003; 82550; 85025; 99283

== ENCOUNTER 2021-03-11 14:23 | Emergency (ER) | payer SELFPAY ==
[2021-03-11 14:44] VITALS: BP 127/76; PULSE 83; RESP 16; TEMP 36.6; O2SAT 97; BMI 30.4
--- NOTE | 2021-03-11 15:47 | W.ED.UPPEXIN ---
HPI - Extremity Injury (Upper) General: Chief Complaint: Wound/Laceration Stated Complaint: LACERATION TO WRIST Time Seen by Provider: 03/11/21 15:36 Source: patient Mode of arrival: ambulatory Limitations: no limitations History of Present Illness: HPI narrative: Patient is a 40-year-old male who presents to ED today for evaluation of a right wrist laceration/injury that he sustained 1 week ago after punching through a glass window. Patient states that he does not know why he did not seek medical evaluation at that time. He states pain has progressively worsened and is having a hard time using his right hand and wrist. He has not noticed any redness or drainage. No streaking up his arm. No fevers. Patient is an IV methamphetamine drug user. He states his last use was 2 days ago. Tetanus was within the last two years per patient. MD complaint: injury to: right and wrist Onset (ago): day(s) Other Extremity Injury: Right: wrist Other injuries: none Handedness: right Place: home Severity: moderate Relieving factors: immobilization Exacerbating factors: movement of extremity Context: laceration Associated symptoms: Reports no associated symptoms Review of Systems Const: Denies: fever(s), chills, body aches, fatigue or malaise Card: Denies: chest pain Resp: Denies: dyspnea GI: Denies: nausea or vomiting Musc: Reports: extremity pain (R distal forearm); Denies: extremity swelling, joint pain or joint swelling Skin/Breast: Reports: other (R wrist laceration) Neuro: Denies: numbness in extremities or sensory changes [facility] ED PFSH: Social History Smoking and tobacco status: current every day smoker Physical Exam Const: COMMON NORMALS: no acute distress, patient oriented x3, no limitations and alert GENERAL APPEARANCE: cooperative ORIENTATION/CONSCIOUSNESS: Yes awake, Yes oriented to person, Yes oriented to place and Yes oriented to time Resp: COMMON NORMALS: normal respiratory effort and clear to auscultation bilaterally AUSCULTATION: clear to auscultation bilaterally Cardio: COMMON NORMALS: regular rate and regular rhythm RATE: regular rate RHYTHM: regular rhythm Extremity: NARRATIVE EXTREMITY EXAM: patient has a partially healed one week old 1.5 in laceration to the volar wrist; there is no purulent drainage or surrounding redness; no lymphangitic streaking; he complains of pain with wrist flexion; he has decreased flexion to his index finger and thumb; he does not complain of sensory deficits; cap refill and radial pulse normal Neuro: COMMON NORMALS: patient oriented x3 and no sensory deficits noted SENSORIUM/ORIENTATION: Yes alert, Yes oriented to person, Yes oriented to place and Yes oriented to time Skin: NARRATIVE SKIN EXAM: see extremity examination for pertinent skin findings Course Consultations: Consultation #1: Dr. Funez-recommends hand surgery Consultation #2: Dr. Hinds-[facility] hand surgery. Agrees with plan for irrigation, splint, abx, and recommends he contact office tomorrow to schedule appointment Vital Signs: Vital signs: Vital Signs Temperature 97.8 F 03/11/21 14:44 Pulse Rate 76 03/11/21 16:57 Respiratory Rate 18 03/11/21 16:57 Blood Pressure 120/74 03/11/21 16:57 Pulse Oximetry 99 03/11/21 16:57 MDM - Extremity Injury (Upper) MDM Narrative: Medical decision making narrative: Laceration is over a week old now and there is no indication for repair. Based on clinical findings I have a suspicion for flexor tendon laceration. He was given IM ancef and will place on abx at home. Will splint the wrist. Laceration was irrigated and dressed. His tetanus is UTD. Spoke to Dr. Funez but she recommended followup with hand surgery. Spoke to Dr. Hinds at [facility] who recommended he call office tomorrow and they will get him scheduled this week or early next week. Imaging Data^: XR R wrist: My impression: laceration to volar wrist; no bony injury noted Discharge Plan Discharge Patient Disposition: Home Clinical Impression: Flexor tendon laceration of right wrist with open wound Qualifiers: Encounter type: initial encounter Qualified Code(s): S66.921A - Laceration of unspecified muscle, fascia and tendon at wrist and hand level, right hand, initial encounter Condition: Stable Prescriptions: New cephalexin 500 mg capsule 500 mg PO Q6H 7 Days Qty: 28 RF: 0 Discharge Orders: Discharge ED (Routine); Ordered 03/11/21 Ordered By: Valerie Saleem Patient Instructions: Wrist Injury (ED) Activity Restrictions/Additional Instructions: You need to begin antibiotics immediately. I have spoken to Dr. Hinds the hand surgeon at [facility]. It is imperative that you contact their office tomorrow at [phone] so they can schedule you for an appointment for further evaluation. Failure to do so could result in permanent disability and inability to use your right hand and wrist. Coding Level of Care Code ED Barrel Cap Setter for Chg Fwd Exam Expanded Problem Focused
--- NOTE | 2021-03-11 16:08 | XRR_ITS ---
PROCEDURE INFORMATION: Exam: XR Right Wrist Exam date and time: 03/11/2021 4:11 PM Age: 40 years old Clinical indication: Injury or trauma; Other: Punched window; Laceration; Wrist; Left; Additional info: Punched glass window; Laceration TECHNIQUE: Imaging protocol: XR Right wrist. Views: 3 or more views. Total images: 3 COMPARISON: No relevant prior studies available. FINDINGS: Bones/joints: No visible evidence of active or acute osseous pathology. Soft tissues: Soft tissues without evidence of edema, swelling, contusion, emphysema, or radiopaque foreign body. XR/XR wrist RT min 3V* [id number] IMPRESSION: Nonacute.
[2021-03-11] MEDS: ceFAZolin 1,000 mg SDV 1000 MG IM (16:47)
[2021-03-11 16:57] VITALS: BP 120/74; PULSE 76; RESP 18; O2SAT 99
--- NOTE | 2021-03-12 14:53 | DCPLANNER ---
Addendum entered by Jazzmine Weeks 03/27/21 14:55: advertising account manager called to confirm that a follow up appointment had been scheduled for patient. advertising account manager was told that Izquierdo had called patient, spoke with his mother, left a message to patient to call clinic to schedule an appointment. Original Note: advertising account manager had message to schedule a follow up appointment for patient with Dr. Hinds, hand surgeon, at [facility] for follow up appointment. advertising account manager faxed patients information to the [facility] clinic for it to be reviewed for appointment.
== END 2021-03-11 17:00 | disposition home or self-care (01) ==
PROVIDERS: Emergency Provider Physician Assistant
DX: S66.921A Laceration of unspecified muscle, fascia and tendon at wrist and hand level, right hand, initial encounter (principal); W22.8XXA Striking against or struck by other objects, initial encounter
CPT/HCPCS: 73110; 96372; J0690

== ENCOUNTER 2021-05-05 09:30 | Inpatient (IN) | payer SELFPAY ==
[2021-05-05] VITALS (7 sets, daily range): BP systolic 108–124; BP diastolic 66–83; PULSE 71–96; RESP 14–17; TEMP 36.2–36.7; O2SAT 97–99; BMI 36.5
--- NOTE | 2021-05-05 11:38 | W.ED.PSYCH ---
HPI - Psych General: Chief Complaint: Psychiatric Symptoms Stated Complaint: Suicidal Time Seen by Provider: 05/05/21 10:26 History of Present Illness: HPI Narrative: Patient is a 40-year-old male with past medical history methamphetamine abuse who comes to the ER asking for detox. He also says he is paranoid and feels like people are following him. Associated symptoms: Reports auditory hallucinations; Deny depression, homicidal ideation or suicidal ideation Review of Systems General: Reports: 10 or more systems reviewed and unremarkable except in HPI and below Const: Denies: fatigue Eyes: Denies: change in vision, blurry vision or eye redness ENMT: Denies: throat pain, swelling of lips/tongue, ear or mastoid pain or nasal congestion Card: Denies: chest pain, palpitations, irregular heart rhythm, edema, dyspnea on exertion or orthopnea Resp: Denies: dyspnea, productive cough or non-productive cough GI: Denies: abdominal pain, diarrhea or GI cramping : Denies: flank pain, urinary frequency or urinary urgency Musc: Denies: neck pain, back pain, extremity pain, joint pain, joint redness, limited range of motion or muscle weakness Skin/Breast: Denies: rash, pruritus, erythema, skin pain or skin tenderness Neuro: Denies: headache(s), numbness in extremities, weakness in extremities, sensory changes, difficulty walking, dizziness, confusion or Slurred speech present Psych: Reports: paranoia and auditory hallucinations; Denies: anxiety, depression, suicidal ideation or homicidal ideation Endo: Denies: polyuria All/Imm: Denies: urticaria, throat swelling or tongue swelling PFSH ED PFSH: Social History Smoking and tobacco status: current every day smoker Physical Exam Const: COMMON NORMALS: no acute distress, average body habitus, patient oriented x3, no limitations, healthy appearing, alert and well nourished GENERAL APPEARANCE: cooperative, comfortable and well developed ORIENTATION/CONSCIOUSNESS: Yes awake, Yes oriented to person, Yes oriented to place and Yes oriented to time HENMT: COMMON NORMALS: normocephalic, external ears normal and Normal external nose present HEAD & SCALP: normal to inspection and normocephalic NOSE: Normal external nose present EXTERNAL EAR: Yes external ears normal MOUTH: Normal oral and palatal mucosa present THROAT: posterior oropharynx normal Eye: COMMON NORMALS: Equal, round and reactive pupils present and EOMs intact bilaterally GENERAL EYE: appearance normal, both eyes and all related structures PUPIL: Yes Equal, round and reactive pupils present Neck/C-Spine: COMMON NORMALS: full ROM, no lymphadenopathy, no meningeal signs and no JVD GENERAL: Yes normal visual inspection Lymph: LYMPHATIC: no lymphadenopathy noted Chest: COMMONS NORMALS: normal inspection of the chest and normal palpation of entire chest wall Resp: COMMON NORMALS: normal respiratory effort, No retractions, No use of accessory muscles, clear to auscultation bilaterally and percussion normal EFFORT & INSPECTION: Yes able to speak in complete sentences AUSCULTATION: clear to auscultation bilaterally PERCUSSION: percussion normal Cardio: COMMON NORMALS: no JVD, regular rate, regular rhythm, S1 normal heart sound present, S2 normal heart sound present and Peripheral pulses 2+ throughout RATE: regular rate RHYTHM: regular rhythm HEART SOUNDS: S1 normal heart sound present and S2 normal heart sound present PERIPHERAL PULSES: Peripheral pulses 2+ throughout GI: COMMON NORMALS: Normal to inspection, nondistended, normoactive bowel sounds present, Soft to palpation, non-tender and no masses INSPECTION: Yes normal to inspection PALPATION: Yes Soft to palpation : COMMON NORMALS: Yes no CVA tenderness BLADDER/KIDNEY EXAM: Yes no CVA tenderness Back/Pelvis: COMMON NORMALS: no CVA tenderness, thoracic and lumbar spine normal to inspection, no thoracic nor lumbar tenderness and thoraco-lumbar ROM normal Extremity: COMMON NORMALS: normal to inspection, full ROM, capillary refill normal, no joint enlargement and no pedal edema GENERAL: Yes normal exam except as noted Neuro: COMMON NORMALS: patient oriented x3, CN's II-XII intact bilaterally, moves all extremities, no focal motor deficits, no sensory deficits noted and gait normal SENSORIUM/ORIENTATION: Yes alert, Yes oriented to person, Yes oriented to place and Yes oriented to time MENINGEAL SIGNS: Yes no meningeal signs Psych: COMMON NORMALS: mental status grossly normal, cooperative, normal affect and speech normal APPEARANCE: Yes unkempt ATTITUDE: Yes paranoid SPEECH: Yes normal speech THOUGHT CONTENT: No Suicidality present and No Homicidality present OTHER: psychotic symptoms of thinking people are following him and hearing voices. Skin: COMMON NORMALS: no rashes or lesions noted GENERAL SKIN EXAM: no rashes or lesions noted Course Vital Signs: Vital signs: Vital Signs Temperature 97.1 F L 05/05/21 14:53 Pulse Rate 84 05/05/21 14:53 Respiratory Rate 16 05/05/21 14:53 Blood Pressure 115/78 05/05/21 14:53 Pulse Oximetry 97 05/05/21 14:53 MDM - Psych MDM Narrative: Medical decision making narrative: This patient is here for methamphetamine abuse and we requesting detox which we do not do. He is also complaining of psychotic symptoms feeling like people are following him and hearing voices which is abnormal for him. Discussed with Dr. Hooker and will keep observation overnight. Lab Data: Labs: Lab Results 05/05/21 05/05/21 05/05/21 Range/Units 11:36 11:36 11:40 WBC 4.1 (4.0-10.0) 10^3/ uL RBC 4.40 (4.1-5.3) 10^6/u L Hgb 14.0 (11.7-16.6) g/dL Hct 40.9 L (42.0-52.0) % MCV 93.0 (80-94) fL MCH 31.8 (28.0-34.0) pg MCHC 34.2 (30.0-36.0) g/dL RDW 13.2 (12.1-15.1) % Plt Count 170 (130-400) 10^3/c mm MPV 9.9 (7.4-10.4) fL Neut % (Auto) 50.8 % Lymph % (Auto) 36.7 % O'Brien % (Auto) 8.7 % Eos % (Auto) 3.4 % Baso % (Auto) 0.2 % Neut # (Auto) 2.10 (1.8-7.7) 10^3/u L Lymph # (Auto) 1.5 (0.8-4.8) 10^3/u L O'Brien # (Auto) 0.4 (0.2-0.9) 10^3/u L Eos # (Auto) 0.1 (0.0-0.8) 10^3/u L Baso # (Auto) 0.0 (0.0-0.1) 10^3/u L Nucleated RBC % (a uto) 0 % Nucleated RBCs # 0.0 /100WBC Sodium (136-145) mmol/L Potassium (3.5-5.1) mmol/L Chloride (98-107) mmol/L Carbon Dioxide (22-29) mmol/L Anion Gap (5-19) BUN (6-20) mg/dL Creatinine (0.7-1.2) mg/dL GFR Calculation (90-130) mL/min Glucose (65-115) mg/dL Calculated Osmolal ity (285-295) mOsm/k g Calcium (8.5-10.5) mg/dL Total Bilirubin (0.15-1.2) mg/dL AST (0-40) U/L ALT (0-41) U/L Alkaline Phosphata se (40-130) IU/L Creatine Kinase (39-308) U/L Total Protein (6.6-8.7) g/dL Albumin (3.5-5.2) g/dL Globulin (1.3-4.6) g/dL Urine Color Yellow (Yellow) Urine Appearance Clear (CLEAR) Urine pH 5 (5-7) Ur Specific Gravit y 1.020 (1.005-1.030) Urine Protein Neg (Negative) Urine Glucose (UA) Norm (Normal) Urine Ketones 2+ H (Negative) Urine Blood Neg (Negative) Urine Nitrate Negative (Negative) Urine Bilirubin 1+ H (Negative) Urine Urobilinogen 1 H (Negative) mg/dL Ur Leukocyte Mari ase Trace H (Negative) Urine RBC None (0-2) /hpf Urine WBC 15-25 H (0-5) /hpf Ur Squamous Epith Cells None (0-5) /hpf Amorphous Sediment Not Reportable Urine Bacteria 1+ H (NONE) /hpf Urine Mucus 2+ /hpf Salicylates (3-10) mg/dL Urine Opiates Scre en Negative (Negative) ng/mL Acetaminophen (10-30) ug/mL Ur Barbiturates Sc reen Negative (Negative) ng/mL Ur Phencyclidine S crn Negative (Negative) ng/mL Ur Amphetamines Sc reen Positive H (Negative) ng/mL U Benzodiazepines Scrn Negative (Negative) ng/mL Urine Cocaine Scre en Negative (Negative) ng/mL U Marijuana (THC) Screen Negative (Negative) ng/mL Ethyl Alcohol (0-10) mg/dL 07/20/21 Range/Units 11:40 WBC (4.0-10.0) 10^3/ uL RBC (4.1-5.3) 10^6/u L Hgb (11.7-16.6) g/dL Hct (42.0-52.0) % MCV (80-94) fL MCH (28.0-34.0) pg MCHC (30.0-36.0) g/dL RDW (12.1-15.1) % Plt Count (130-400) 10^3/c mm MPV (7.4-10.4) fL Neut % (Auto) % Lymph % (Auto) % O'Brien % (Auto) % Eos % (Auto) % Baso % (Auto) % Neut # (Auto) (1.8-7.7) 10^3/u L Lymph # (Auto) (0.8-4.8) 10^3/u L O'Brien # (Auto) (0.2-0.9) 10^3/u L Eos # (Auto) (0.0-0.8) 10^3/u L Baso # (Auto) (0.0-0.1) 10^3/u L Nucleated RBC % (a uto) % Nucleated RBCs # /100WBC Sodium 141 (136-145) mmol/L Potassium 4.1 (3.5-5.1) mmol/L Chloride 105 (98-107) mmol/L Carbon Dioxide 26 (22-29) mmol/L Anion Gap 14.1 (5-19) BUN 10 (6-20) mg/dL Creatinine 0.6 L (0.7-1.2) mg/dL GFR Calculation 149.2 H (90-130) mL/min Glucose 79 (65-115) mg/dL Calculated Osmolal ity 290 (285-295) mOsm/k g Calcium 8.3 L (8.5-10.5) mg/dL Total Bilirubin 1.6 H (0.15-1.2) mg/dL AST 71 H (0-40) U/L ALT 71 H (0-41) U/L Alkaline Phosphata se 64 (40-130) IU/L Creatine Kinase 408 H* (39-308) U/L Total Protein 7.1 (6.6-8.7) g/dL Albumin 3.9 (3.5-5.2) g/dL Globulin 3.2 (1.3-4.6) g/dL Urine Color (Yellow) Urine Appearance (CLEAR) Urine pH (5-7) Ur Specific Gravit y (1.005-1.030) Urine Protein (Negative) Urine Glucose (UA) (Normal) Urine Ketones (Negative) Urine Blood (Negative) Urine Nitrate (Negative) Urine Bilirubin (Negative) Urine Urobilinogen (Negative) mg/dL Ur Leukocyte Mari ase (Negative) Urine RBC (0-2) /hpf Urine WBC (0-5) /hpf Ur Squamous Epith Cells (0-5) /hpf Amorphous Sediment Urine Bacteria (NONE) /hpf Urine Mucus /hpf Salicylates < 0.3 L (3-10) mg/dL Urine Opiates Scre en (Negative) ng/mL Acetaminophen < 5.0 L (10-30) ug/mL Ur Barbiturates Sc reen (Negative) ng/mL Ur Phencyclidine S crn (Negative) ng/mL Ur Amphetamines Sc reen (Negative) ng/mL U Benzodiazepines Scrn (Negative) ng/mL Urine Cocaine Scre en (Negative) ng/mL U Marijuana (THC) Screen (Negative) ng/mL Ethyl Alcohol 13 H (0-10) mg/dL Discharge Plan Discharge Patient Disposition: Admitted As Inpatient Admit Provider: Rolando Hooker Clinical Impression: Methamphetamine abuse, Acute psychosis Condition: Stable Coding Level of Care Code ED Donor Relations Manager for [facility] Fwd Exam Comprehensive
[2021-05-05] MEDS: sodium chloride 0.9% 1,000 ML 999 ML IV (11:47)
[2021-05-05 11:56] LABS: Basophils % 0.2 %; Eosinophils # 0.1 10^3/uL (0.0-0.8); Eosinophils % 3.4 %; Hematocrit 40.9 % (42.0-52.0); Lymphocytes # 1.5 10^3/uL (0.8-4.8); Lymphocytes % 36.7 %; Mean Corpuscular HGB Conc 34.2 g/dL (30.0-36.0); Mean Corpuscular Hemoglobin 31.8 pg (28.0-34.0); Mean Platelet Volume 9.9 fL (7.4-10.4); Monocytes # 0.4 10^3/uL (0.2-0.9); Monocytes % 8.7 %; Neutrophils % 50.8 %; Nucleated Red Blood Cells % 0 %; Platelet Count 170 10^3/cmm (130-400); Red Cell Distribution Width 13.2 % (12.1-15.1); White Blood Count 4.1 10^3/uL (4.0-10.0)
[2021-05-05 12:04] LABS: Add Urine Microscopic? YES; Bilirubin Urine 1+ (Negative); Blood Urine Neg (Negative); Glucose Urine UA Norm (Normal); Ketones Urine 2+ (Negative); Leukocyte Esterase Urine Trace (Negative); Nitrate Urine Negative (Negative); Protein Urine Neg (Negative); Urine Appearance Clear (CLEAR); Urine Color Yellow (Yellow); Urobilinogen Urine 1 mg/dL (Negative); pH Urine 5 (5-7)
[2021-05-05 12:06] LABS: Bacteria Urine 1+ /hpf; Mucus Urine 2+ /hpf; WBC Urine 15-25 /hpf (0-5)
[2021-05-05 12:07] LABS: Add Urine Culture? No; Amphetamines Screen Urine Positive (Negative); Barbiturates Screen Urine Negative (Negative); Benzodiazepines Screen Urine Negative (Negative); Opiate Screen Urine Negative (Negative)
[2021-05-05 12:14] LABS: Alanine Aminotransferase 71 U/L (0-41); Albumin Level 3.9 g/dL (3.5-5.2); Alcohol Level 13 mg/dL (0-10); Alkaline Phosphatase 64 IU/L (40-130); Anion Gap 14.1 (5-19); Aspartate Amino Transferase 71 U/L (0-40); Blood Urea Nitrogen 10 mg/dL (6-20); Calcium 8.3 mg/dL (8.5-10.5); Carbon Dioxide 26 mmol/L (22-29); Chloride 105 mmol/L (98-107); Globulin 3.2 g/dL (1.3-4.6); Glomerular Filtration Rate 149.2 mL/min (90-130); Glucose 79 mg/dL (65-115); Osmolality Calculated 290 mOsm/kg (285-295); Potassium 4.1 mmol/L (3.5-5.1); Sodium 141 mmol/L (136-145); Total Bilirubin 1.6 mg/dL (0.15-1.2); Total Protein 7.1 g/dL (6.6-8.7)
[2021-05-05 12:21] LABS: Acetaminophen < 5.0 ug/mL (10-30); Creatine Phosphokinase 408 U/L (39-308); Salicylate < 0.3 mg/dL (3-10)
[2021-05-05 12:36] LABS: Cocaine Screen Urine Negative (Negative); PCP Screen Urine Negative (Negative); THC Screen Urine Negative (Negative)
[2021-05-05] MEDS: cephALEXin 500 mg Capsule PO (13:17)
[2021-05-06 06:00] VITALS: BP 118/70; PULSE 72; RESP 15; TEMP 36.4; O2SAT 98
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
[2021-05-06 14:00] VITALS: BP 103/64; PULSE 68; RESP 18; TEMP 36.2; O2SAT 96
[2021-05-06 21:14] VITALS: BP 103/65; PULSE 77; RESP 20; TEMP 37; O2SAT 97
[2021-05-07 03:48] VITALS: BP 133/89; PULSE 63; RESP 17; TEMP 36.4; O2SAT 95
[2021-05-07 13:42] VITALS: BP 137/80; PULSE 77; RESP 16; TEMP 36.9; O2SAT 97
[2021-05-07 15:03] LABS: Amphetamines Screen Urine Positive (Negative); Barbiturates Screen Urine Negative (Negative); Benzodiazepines Screen Urine Negative (Negative); Cocaine Screen Urine Negative (Negative); Opiate Screen Urine Negative (Negative); PCP Screen Urine Negative (Negative); THC Screen Urine Negative (Negative)
--- NOTE | 2021-05-07 17:11 | P.PN_ITS ---
Subjective NPU Subjective: Interval history: Michael presents today reporting that he is feeling a little bit better. He is drinking water and starting to feel less cravings. He continues to be in contact with the care center and they have accepted him but the role is that he will have a clean urine so that they do not deal with any inappropriate withdrawal situations. He reports that his mood and anxiety are starting to improve a little bit. Mental Status Exam MSE Comments: This is an obese white male in hospital scrubs with limited grooming and eye contact. No abnormal movements except for mild, resolving psychomotor retardation. Track leal, scars and leal of different ages are present on his exposed skin. Cooperative with exam in no acute distress. Speech was more normal rate and volume. Mood described as a little better, affect congruent. Thought process organized. Thought content: Patient denied suicidal or homicidal ideation, there were no delusions reported or noted, he d enied any auditory or visual hallucinations. Attention and concentration appeared distractible/limited and memory appeared mostly reliable but none were formally tested. He is alert and oriented x3. Insight and judgment appear fair, impulse control appears impaired. Vitals/I&O/Wt Last Vital Signs Temp 99.4 F 05/07/21 20:55 Pulse 71 05/07/21 20:55 Resp 18 05/07/21 20:55 BP 115/71 05/07/21 20:55 Pulse Ox 96 05/07/21 20:55 Data NPU : 05/05/21 11:40 05/05/21 11:40 A&P Additional A&P Information (1) Acute psychosis: (2) Acute adjustment disorder with mixed disturbance of emotions and conduct: (3) Methamphetamine abuse: Additional A&P Information This is a 40-year-old white male with a long history of mental health and a ddiction issues who presents with active addiction, depression and anxiety and concerns that being the streets would prevent him from the available for his sober living arrangement that he has already arranged a willingness to consider any options that will not block him from going to the sober living treatment. 1. Continue current medication. 2. Continue every 15 minute checks for safety. 3. Encourage individual, group and milieu therapies. 4. Encourage sober living treatment after discharge at the highest level of care to which he is willing to commit. Involuntary Hold Information 96 Hour Hold: 96 Hour Involuntary Admission: No 96 Hour Hold Ending Date: 09/09/20 96 Hour Hold Ending Time: 14:10 Attestations NPU Medical Necessity Statement*: Inpatient hospitalization is medically necessary and the clinically appropriate intervention at this time. We will monitor medications and make changes as indicated. Likely length of stay 1-3 days. Coding Level of Care Code Acute Community Liaison Officer for Halle Davis
[2021-05-07 20:55] VITALS: BP 115/71; PULSE 71; RESP 18; TEMP 37.4; O2SAT 96
[2021-05-08 06:00] VITALS: BP 119/77; PULSE 57; RESP 16; TEMP 36.7; O2SAT 98
[2021-05-08 11:48] VITALS: BP 119/77; PULSE 57; RESP 16; TEMP 36.7; O2SAT 98
[2021-05-08 12:55] LABS: Amphetamines Screen Urine Positive (Negative); Barbiturates Screen Urine Negative (Negative); Benzodiazepines Screen Urine Negative (Negative); Cocaine Screen Urine Negative (Negative); Opiate Screen Urine Negative (Negative); PCP Screen Urine Negative (Negative); THC Screen Urine Negative (Negative)
[2021-05-08 14:00] VITALS: BP 116/75; PULSE 83; RESP 14; TEMP 36.8; O2SAT 95
--- NOTE | 2021-05-08 15:36 | PM.NPN ---
Subjective NPU Subjective: Interval history: Michael presents today reporting that he is starting to feel better and optimistic about his chances of being successful at this program. He reports that he is aware that it is going to be challenging changing his ways but reports that he feels happy that an opportunity like this exists he just wishes that his system would clear more quickly. We discussed the fact that it might be in his best interest that he had this time to really clear his system and be at a better place to engage in groups or activities and better focus on his sobriety and not on feeling better and not being sick. We discussed the fact in the program does have Tuesday acceptance and so tomorrow is still an option. Mental Status Exam MSE Comments: This is an obese white male in hospital scrubs with limited grooming and eye contact. No abnormal movements. Track leal, scars and leal of different ages are present on his exposed skin. Cooperative with exam in no acute distress. Speech was more normal rate and volume. Mood described as better, affect congruent. Thought process organized. Thought content: Patient denied suicidal or homicidal ideation, there were no delusions reported or noted, he denied any auditory or visual hallucinations. Attention and concentration appeared intact and memory appeared mostly reliable but none were formally tested. He is alert and oriented x3. Insight and judgment appear fair, impulse control appears improving. Vitals/I&O/Wt Last Vital Signs Temp 98.3 F 05/08/21 14:00 Pulse 83 05/08/21 14:00 Resp 14 05/08/21 14:00 BP 116/75 05/08/21 14:00 Pulse Ox 95 05/08/21 14:00 Data NPU : 05/05/21 11:40 05/05/21 11:40 A&P Additional A&P Information (1) Acute psychosis: (2) Acute adjustment disorder with mixed disturbance of emotions and conduct: (3) Methamphetamine abuse: Additional A&P Information This is a 40-year-old white male with a long history of mental health and addiction issues who presents with active addiction, depression and anxiety and concerns that being the streets would prevent him from the available for his sober living arrangement that he has already arranged a willingness to consider any options that will not block him from going to the sober living treatment. 1. Continue current medication. 2. Continue every 15 minute checks for safety. 3. Encourage individual, group and milieu therapies. 4. Encourage sober living treatment after discharge at the highest level of care to which he is willing to commit. 5. We will repeat UDS so that he can be placed hopefully tomorrow. Involuntary Hold Information 96 Hour Hold: 96 Hour Involuntary Admission: No 96 Hour Hold Ending Date: 09/09/20 96 Hour Hold Ending Time: 14:10 Attestations NPU Medical Necessity Statement*: Inpatient hospitalization is medically necessary and the clinically appropriate intervention at this time. We will monitor medications and make changes as indicated. Likely length of stay 1-2 days. Coding Level of Care Code Acute Front End Developer for Halle Davis
--- NOTE | 2021-05-08 17:18 | PC.RESP ---
SMOKING CESSATION INFORMATION SENT TO PATIENT.
[2021-05-08 20:19] VITALS: BP 95/62; PULSE 63; RESP 16; TEMP 36.4; O2SAT 98
[2021-05-09 06:00] VITALS: BP 105/78; PULSE 104; RESP 18; TEMP 36.3; O2SAT 93
[2021-05-09 10:50] LABS: Amphetamines Screen Urine Negative (Negative); Barbiturates Screen Urine Negative (Negative); Benzodiazepines Screen Urine Negative (Negative); Cocaine Screen Urine Negative (Negative); Opiate Screen Urine Negative (Negative); PCP Screen Urine Negative (Negative); THC Screen Urine Negative (Negative)
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
== END 2021-05-09 11:58 | disposition home or self-care (01) | DRG 885 ==
LOC: ER 11:12 → NP 13:30
PROVIDERS: Admitting Provider Psychiatry & Neurology Psychiatry; Emergency Provider Family Medicine; Visit Provider Psychiatry & Neurology Psychiatry
DX: F23 Brief psychotic disorder (principal); F15.151 Other stimulant abuse with stimulant-induced psychotic disorder with hallucinations; F43.25 Adjustment disorder with mixed disturbance of emotions and conduct; E66.9 Obesity, unspecified; F17.200 Nicotine dependence, unspecified, uncomplicated; F32.9 Major depressive disorder, single episode, unspecified; F41.9 Anxiety disorder, unspecified; Z76.5 Malingerer [conscious simulation]; Z59.0 Homelessness; Z68.36 Body mass index [BMI] 36.0-36.9, adult; Z62.810 Personal history of physical and sexual abuse in childhood; Z62.811 Personal history of psychological abuse in childhood
CPT/HCPCS: 80053; 80306; 80307; 81001; 82550; 85025; 96360; 99285; G0378; J7030

== ENCOUNTER 2021-05-11 10:39 | Emergency (ER) | payer SELFPAY ==
[2021-05-11 11:09] VITALS: BP 105/71; PULSE 77; RESP 18; TEMP 36.7; O2SAT 96; BMI 34.9
--- NOTE | 2021-05-11 13:00 | US_ITS ---
WS: [id number] SCROTAL ULTRASOUND REASON FOR EXAM: pain COMPARISON: None available. TECHNIQUE: Grayscale and duplex color Doppler ultrasound examination of the scrotum. FINDINGS: RIGHT: Right testes measures 3.2 cm x 2.0 cm x 2.2 cm. No hydrocele. Normal blood flow. Normal right epididymis. LEFT: Left testes measures 4.1 cm x 2.3 cm x 2.7 cm. Moderate hydrocele with normal blood flow. Left epididymis is 3 cm in diameter and complex in appearance. Increased blood flow. US/US scrotum [id number] IMPRESSION: Findings most compatible with left epididymoorchitis.
[2021-05-11 13:08] VITALS: BP 101/72; PULSE 69; O2SAT 98
--- NOTE | 2021-05-11 14:50 | ED_ITS ---
HPI - Male Genitourinary General: Chief complaint: Urogenital-Male Stated complaint: Pain in Lower ABD Time Seen by Provider: 05/11/21 13:00 History of Present Illness: HPI Narrative: Patient sent from [facility] for right testicular swelling for an ultrasound. Labs were negative over there for any suspicious findings MD Complaint: testicle swelling Onset (ago): day(s) Duration: constant Location: right testicle Associated symptoms: Deny nausea or vomiting Review of Systems Const: Denies: fever(s), chills or body aches Eyes: Denies: change in vision or blurry vision ENMT: Denies: throat pain or nasal congestion Card: Denies: chest pain or dyspnea on exertion Resp: Denies: dyspnea, productive cough or non-productive cough GI: Denies: abdominal pain, nausea or vomiting : Reports: testicular pain, scrotal swelling and other (Denies any chance STI); Denies: difficulty urinating Musc: Denies: extremity pain Skin/Breast: Denies: rash Neuro: Denies: headache(s) Psych: Denies: anxiety or depression Donald/Lymph: Denies: easy bruising PFSH ED PFSH: Social History Smoking and tobacco status: current every day smoker Physical Exam Const: COMMON NORMALS: no acute distress GENERAL APPEARANCE: cooperative Resp: COMMON NORMALS: normal respiratory effort GI: COMMON NORMALS: Normal to inspection, nondistended, normoactive bowel sounds present Psych: COMMON NORMALS: mental status grossly normal Course Vital Signs: Vital signs: Vital Signs Temperature 98.1 F 05/11/21 11:09 Pulse Rate 69 05/11/21 13:08 Respiratory Rate 18 05/11/21 11:09 Blood Pressure 101/72 05/11/21 13:08 Pulse Oximetry 98 05/11/21 13:08 Discharge Plan Discharge Patient Disposition: Home Clinical Impression: Epididymitis Condition: Stable Prescriptions: New Cipro 500 mg tablet 500 mg PO BID Qty: 14 RF: 0 Discharge Orders: Discharge ED (Routine); Ordered 05/11/21 Ordered By: Avel Escobedo Discharge Diet: Usual diet Discharge Activity: Resume usual activity Patient Instructions: Epididymo-orchitis (ED) Activity Restrictions/Additional Instructions: Follow-up with medical provider as directed. Take medications as prescribed. Return to the ER or your medical provider if condition worsens. Please read and understand discharge instructions. If any questions ask please. Coding Level of Care Code ED Masking Machine Operator for Halle Davis
== END 2021-05-11 13:55 | disposition home or self-care (01) ==
PROVIDERS: Emergency Provider Nurse Practitioner Family
DX: N45.1 Epididymitis (principal); F17.200 Nicotine dependence, unspecified, uncomplicated
CPT/HCPCS: 76870; 99282

== ENCOUNTER 2021-08-18 19:41 | Emergency (ER) | payer SELFPAY ==
[2021-08-18 19:43] VITALS: BP 122/77; PULSE 94; RESP 18; TEMP 36.6; O2SAT 98; BMI 31.9
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
--- NOTE | 2021-08-18 19:50 | ED_ITS ---
HPI - Skin/Abscess/Foreign Bdy General: Chief complaint: Skin/Abscess/Foreign Body Stated complaint: NEEDLE IN THE ARM Time Seen by Provider: 08/18/21 19:42 Source: patient and EMS Mode of arrival: EMS Limitations: no limitations History of Present Illness: HPI narrative: 41-year-old male who was using IV drugs while shooting up in his left arm. Does have scar tissue his left elbow states that he believes he broke up a very small part of the needle in his arm. He is unsure if he actually did be bleeding. It was a very small gauge needle. He states this happened just after 30 minutes an hour ago. Denies any bleeding denies any pain Associated symptoms: Deny chills, fever(s), nausea or vomiting Review of Systems Const: Denies: fever(s), chills, body aches or change in appetite Eyes: Denies: blurry vision or eye discomfort ENMT: Denies: throat pain or dental pain Card: Denies: chest pain Resp: Denies: dyspnea GI: Denies: abdominal pain, nausea, vomiting or diarrhea : Denies: dysuria Musc: Denies: neck pain or back pain Skin/Breast: Denies: rash Neuro: Denies: headache(s) Psych: Denies: depression Donald/Lymph: Denies: easy bruising All/Imm: Denies: urticaria PFS ED PFSH: Medical History (Updated 08/18/21 @ 20:08 by Janes Crouch MD) Psychiatric care Social History Smoking and tobacco status: current every day smoker Physical Exam Const: COMMON NORMALS: no acute distress, patient oriented x3 and healthy appearing HENMT: COMMON NORMALS: normocephalic and atraumatic HEAD & SCALP: normocephalic and atraumatic Eye: COMMON NORMALS: Equal, round and reactive pupils present and EOMs intact bilaterally PUPIL: Yes Equal, round and reactive pupils present Neck/C-Spine: COMMON NORMALS: full ROM and supple Chest: COMMONS NORMALS: normal inspection of the chest and normal palpation of entire chest wall Resp: COMMON NORMALS: normal respiratory effort, No retractions, No use of accessory muscles and clear to auscultation bilaterally AUSCULTATION: clear to auscultation bilaterally Cardio: COMMON NORMALS: regular rate, regular rhythm and No murmurs present (Cardio) RATE: regular rate RHYTHM: regular rhythm GI: COMMON NORMALS: Normal to inspection, nondistended, normoactive bowel sounds present, Soft to palpation, non-tender and no masses PALPATION: Yes Soft to palpation Extremity: COMMON NORMALS: normal to inspection and full ROM Neuro: COMMON NORMALS: patient oriented x3, moves all extremities and no focal motor deficits Psych: COMMON NORMALS: mental status grossly normal, Normal thought process present and cooperative THOUGHT PROCESS: Normal thought process present Skin: COMMON NORMALS: no rashes or lesions noted and no wounds GENERAL SKIN EXAM: no rashes or lesions noted Course Vital Signs: Vital signs: Vital Signs Temperature 97.8 F 08/18/21 19:43 Pulse Rate 94 08/18/21 19:43 Respiratory Rate 18 08/18/21 19:43 Blood Pressure 122/77 08/18/21 19:43 Pulse Oximetry 98 08/18/21 19:43 MDM - Skin/Abscess/Foreign Bdy MDM Narrative: Medical decision making narrative: Patient presents here with IV drug use he is worried that he had a cough need almonds AC x-ray shows no signs of foreign body I cannot palpate a foreign body there is stable for discharge follow-up PCP and return if worsening Imaging Data^: xr L elbow: Attestation: I personally reviewed and interpreted this imaging study as follows: My impression: no acute fx/ no fb Discharge Plan Discharge Patient Disposition: Home Clinical Impression: Methamphetamine abuse Condition: Stable Prescriptions: No Action Cipro 500 mg tablet 500 mg PO BID Qty: 14 RF: 0 Discharge Orders: Discharge ED (Routine); Ordered 08/18/21 Ordered By: Janes Crouch Discharge Diet: Advance as tolerated Discharge Activity: Resume usual activity Patient Instructions: Opioid Safety Coding Level of Care Code ED Rehabilitation Services Aide for Chg Fwd Exam Comprehensive
[2021-08-18 20:15] VITALS: BP 138/69; PULSE 98; RESP 18; O2SAT 99
== END 2021-08-18 20:17 | disposition home or self-care (01) ==
LOC: ER 20:45
PROVIDERS: Emergency Provider Emergency Medicine
DX: F15.10 Other stimulant abuse, uncomplicated (principal); F17.200 Nicotine dependence, unspecified, uncomplicated; Z71.1 Person with feared health complaint in whom no diagnosis is made
CPT/HCPCS: 73080; 99282

== ENCOUNTER 2023-06-18 20:23 | Emergency (ER) | payer SELFPAY ==
[2023-06-18 20:41] VITALS: BP 136/91; PULSE 80; RESP 18; TEMP 36.6; O2SAT 97; BMI 38.0
[2023-06-18] MEDS: naproxen 500 mg Tablet PO (22:23)
[2023-06-18] MEDS: cephALEXin 500 mg Capsule PO (22:23)
--- NOTE | 2023-06-18 22:36 | W.ED.DENTAL ---
HPI - Dental/Oral General: Chief complaint: Dental/Oral Stated complaint: tooth pain Time Seen by Provider: 06/18/23 22:08 Source: patient Mode of arrival: ambulatory Limitations: no limitations History of Present Illness: 42-year-old male who been having left lower dental pain over the last 2 days. He states over his left lower molar he rates the pain a 6 out of 10. He denies any worsening improving factors. He denies any vomiting or diarrhea. He has no trismus Associated symptoms: Denies fever(s) Review of Systems Const: Denies: fever(s) or chills ENMT: Reports: dental pain; Denies: throat pain Card: Denies: chest pain Resp: Denies: dyspnea GI: Denies: abdominal pain, nausea, vomiting or diarrhea : Denies: dysuria Musc: Denies: neck pain or back pain Skin/Breast: Denies: rash Neuro: Denies: headache(s) PFS ED PFSH: Social History Smoking and tobacco status: current every day smoker Physical Exam Const: COMMON NORMALS: no acute distress, patient oriented x3 and healthy appearing HENMT: COMMON NORMALS: normocephalic and atraumatic HEAD & SCALP: normocephalic and atraumatic OTHER: Poor dentition tenderness over right lower molar no abscess no trismus Neck/C-Spine: COMMON NORMALS: full ROM Chest: COMMONS NORMALS: normal inspection of the chest Resp: COMMON NORMALS: normal respiratory effort and No use of accessory muscles Cardio: COMMON NORMALS: regular rate, regular rhythm and No murmurs present (Cardio) RATE: regular rate RHYTHM: regular rhythm GI: INSPECTION: Yes normal to inspection Extremity: COMMON NORMALS: normal to inspection and full ROM Neuro: COMMON NORMALS: patient oriented x3, moves all extremities and no focal motor deficits Psych: COMMON NORMALS: mental status grossly normal, Normal thought process present and cooperative THOUGHT PROCESS: Normal thought process present Skin: COMMON NORMALS: no rashes or lesions noted and no wounds GENERAL SKIN EXAM: no rashes or lesions noted Procedures Nerve Block Nerve Block 1: Time out performed: Yes Local Anesthetic: bupivacaine 0.5% Amount of anesthesia used (mL): 6 Nerve Blocks: occipital Intraoral Nerve Block: inferior alveolar Procedure Successful: Yes Patient Tolerated Procedure: well Complications: none Course Vital Signs: Vital signs: Vital Signs Temperature 97.8 F 06/18/23 20:41 Pulse Rate 73 06/18/23 22:46 Respiratory Rate 18 06/18/23 20:41 Blood Pressure 134/89 06/18/23 22:46 Pulse Oximetry 97 06/18/23 22:46 Oxygen Delivery Me thod Room Air 06/18/23 20:41 MDM - Dental/Oral Medical Decision Making Patient presents here with dental pain did do a nerve block he had resolution of his pain no trismus no abscess we will place him on antibiotics he is to follow-up with a dentist. Discharge Plan Discharge Patient Disposition: Home Clinical Impression: Pain, dental Condition: Stable Prescriptions: New cephalexin 500 mg capsule 500 mg PO TID 7 Days Qty: 21 0RF Naprosyn 500 mg tablet 500 mg PO BID PRN (Reason: pain) Qty: 20 0RF No Action amoxicillin-pot clavulanate 875-125 mg tablet 1 tab PO BID 7 Days Qty: 14 0RF Discharge Orders: Discharge ED (Routine); Ordered 06/18/23 Ordered By: Janes Crouch Referrals: Savage Terrell DO [Primary Care Provider] - Discharge Diet: Advance as tolerated Discharge Activity: Resume usual activity Patient Instructions: Toothache (ED) Coding Level of Care Code ED Deputy Commonwealth'S Attorney for Halle Davis
[2023-06-18 22:46] VITALS: BP 134/89; PULSE 73; O2SAT 97
[2023-06-18] MEDS: BUPivacaine 0.5% INJ 10 mL 30 ML INJECTION (22:48)
== END 2023-06-18 22:49 | disposition home or self-care (01) ==
PROVIDERS: Emergency Provider Emergency Medicine; PCP Family Medicine
DX: K08.89 Other specified disorders of teeth and supporting structures (principal); F17.210 Nicotine dependence, cigarettes, uncomplicated
CPT/HCPCS: 64400; 99283; J3490

== ENCOUNTER 2023-06-23 00:28 | Emergency (ER) | payer SELFPAY ==
[2023-06-23 00:35] VITALS: BP 173/103; PULSE 109; RESP 16; TEMP 36.9; O2SAT 100; BMI 37.2
--- NOTE | 2023-06-23 01:02 | W.ED.PSYCHS ---
HPI - Psych General: Chief Complaint: Psychiatric Symptoms Stated Complaint: hearing voices Time Seen by Provider: 06/23/23 00:49 History of Present Illness: Patient presents to the ER today with complaints of getting out of [facility] and doing 33 days of treatment for drug abuse and then using meth today and started hearing voices. Patient says the voices are not suicidal or homicidal and are directly related to meth use. Patient says he he does not need to go to the [facility] or crisis center but would like an IV some fluids and something to help with the voices. Review of Systems General: Reports: 10 or more systems reviewed and unremarkable except in HPI and below PFSH ED PFSH: Social History Smoking and tobacco status: current every day smoker Physical Exam Const: COMMON NORMALS: no acute distress, average body habitus, patient oriented x3, no limitations, healthy appearing, alert and well nourished HENMT: COMMON NORMALS: normocephalic, atraumatic, hearing grossly normal bilaterally, external ears normal, Normal external nose present and moist oral mucous membranes HEAD & SCALP: normocephalic and atraumatic NOSE: Normal external nose present EXTERNAL EAR: Yes external ears normal Eye: COMMON NORMALS: Equal, round and reactive pupils present, EOMs intact bilaterally, conjunctivae normal and no scleral icterus CONJUNCTIVA: Yes conjunctivae normal PUPIL: Yes Equal, round and reactive pupils present Neck/C-Spine: COMMON NORMALS: no JVD Chest: COMMONS NORMALS: normal inspection of the chest and normal palpation of entire chest wall Resp: COMMON NORMALS: normal respiratory effort, No retractions, No use of accessory muscles and clear to auscultation bilaterally AUSCULTATION: clear to auscultation bilaterally Cardio: COMMON NORMALS: no JVD, regular rate, regular rhythm, S1 normal heart sound present, S2 normal heart sound present and No gallops present (Cardio) RATE: regular rate RHYTHM: regular rhythm HEART SOUNDS: S1 normal heart sound present and S2 normal heart sound present GI: COMMON NORMALS: Normal to inspection, nondistended, normoactive bowel sounds present, Soft to palpation, non-tender and No hepatosplenomegaly present PALPATION: Yes Soft to palpation and Yes No hepatosplenomegaly present : COMMON NORMALS: Yes no CVA tenderness BLADDER/KIDNEY EXAM: Yes no CVA tenderness Back/Pelvis: COMMON NORMALS: no CVA tenderness Neuro: COMMON NORMALS: patient oriented x3 SENSORIUM/ORIENTATION: Yes alert Course Vital Signs: Vital signs: Vital Signs Temperature 98.4 F 06/23/23 00:35 Pulse Rate 109 H 06/23/23 00:35 Respiratory Rate 16 06/23/23 00:35 Blood Pressure 173/103 06/23/23 00:35 Pulse Oximetry 100 06/23/23 00:35 Oxygen Delivery Me thod Room Air 06/23/23 00:35 MDM - Psych Medical Decision Making Patient presents to the ER with complaints of hearing voices after doing meth today. Patient [place] any suicidal homicidal ideation. Patient states he just needs to have some fluid and jokingly says an antidote to the meth to the voices will go away. Patient be bolused 1 L normal saline given 1 mg Ativan and allowed to sleep it off. Patient be discharged home to follow-up with his PCP. Lab Data 06/23/23 01:05 06/23/23 01:05 Laboratory Results WBC 6.19 10^3/uL (3.29-11.43) 06/23/23 01:05 RBC 4.46 10^6/uL (3.85-5.65) 06/23/23 01:05 Hgb 13.90 g/dL (11.27-16.99) 06/23/23 01:05 Hct 41.4 % (37-53) 06/23/23 01:05 MCV 92.8 fl (82-101) 06/23/23 01:05 MCH 31.2 pg (27-33) 06/23/23 01:05 MCHC 33.6 g/dL (30-55) 06/23/23 01:05 RDW 13.0 % (12.1-15.1) 06/23/23 01:05 Plt Count 220 10^3/cmm (157-399) 06/23/23 01:05 MPV 9.0 fL (7.4-10.4) 06/23/23 01:05 Neut % (Auto) 53.1 % 06/23/23 01:05 Lymph % (Auto) 38.6 % 06/23/23 01:05 [place] % (Auto) 6.6 % 06/23/23 01:05 Eos % (Auto) 1.0 % 06/23/23 01:05 Baso % (Auto) 0.5 % 06/23/23 01:05 Neut # (Auto) 3.29 10^3/uL (1.8-7.7) 06/23/23 01:05 Lymph # (Auto) 2.4 10^3/uL (0.8-4.8) 06/23/23 01:05 [place] # (Auto) 0.4 10^3/uL (0.2-0.9) 06/23/23 01:05 Eos # (Auto) 0.1 10^3/uL (0.0-0.8) 06/23/23 01:05 Baso # (Auto) 0.0 10^3/uL (0.0-0.1) 06/23/23 01:05 Nucleated RBC % (auto) 0 % 06/23/23 01:05 Nucleated RBCs # 0.0 /100WBC 06/23/23 01:05 Sodium 141 mmol/L (136-145) 06/23/23 01:05 Potassium 3.5 mmol/L (3.5-5.1) 06/23/23 01:05 Chloride 106 mmol/L (98-107) 06/23/23 01:05 Carbon Dioxide 25 mmol/L (22-29) 06/23/23 01:05 Anion Gap 13.5 (5-19) 06/23/23 01:05 BUN 16 mg/dL (6-20) 06/23/23 01:05 Creatinine 0.8 mg/dL (0.7-1.2) 06/23/23 01:05 GFR Calculation 106.0 mL/min (90-130) 06/23/23 01:05 Glucose 117 mg/dL (65-115) H 06/23/23 01:05 Calculated Osmolality 294 mOsm/kg (285-295) 06/23/23 01:05 Calcium 8.9 mg/dL (8.5-10.5) 06/23/23 01:05 Total Bilirubin 1.3 mg/dL (0.15-1.2) H 06/23/23 01:05 AST 24 U/L (0-40) 06/23/23 01:05 ALT 28 U/L (0-41) 06/23/23 01:05 Alkaline Phosphatase 100 U/L (40-130) 06/23/23 01:05 Total Protein 7.9 g/dL (6.6-8.7) 06/23/23 01:05 Albumin 4.6 g/dL (3.5-5.2) 06/23/23 01:05 Globulin 3.3 g/dL (1.3-4.6) 06/23/23 01:05 Salicylates < 0.3 mg/dL (3-10) L 06/23/23 01:05 Acetaminophen < 5.0 ug/mL (10-30) L 06/23/23 01:05 Ethyl Alcohol < 10 mg/dL (0-10) 06/23/23 01:05 Discharge Plan Discharge Patient Disposition: Home Clinical Impression: Methamphetamine abuse, Auditory hallucination Condition: Stable Prescriptions: No Action amoxicillin-pot clavulanate 875-125 mg tablet 1 tab PO BID 7 Days Qty: 14 0RF cephalexin 500 mg capsule 500 mg PO TID 7 Days Qty: 21 0RF Naprosyn 500 mg tablet 500 mg PO BID PRN (Reason: pain) Qty: 20 0RF Discharge Orders: Discharge ED (Routine); Ordered 06/23/23 Ordered By: Juan Echeverria Referrals: Savage Terrell DO [Primary Care Provider] - Patient Instructions: Methamphetamine Abuse, Hallucinations (ED) Activity Restrictions/Additional Instructions: Please refrain from using methamphetamines. Please follow-up with your family practice doctor for further evaluation and treatment. Coding Level of Care Code ED Industrial Safety And Health Specialist for Halle Davis
[2023-06-23] MEDS: LORazepam 2 mg/mL INJ 1 mL 1 MG IVP (01:11)
[2023-06-23] MEDS: sodium chloride 0.9% 1,000 ML 999 ML IV (01:11)
[2023-06-23 01:13] LABS: Basophils % 0.5 %; Eosinophils # 0.1 10^3/uL (0.0-0.8); Hematocrit 41.4 % (37-53); Lymphocytes # 2.4 10^3/uL (0.8-4.8); Lymphocytes % 38.6 %; Mean Corpuscular HGB Conc 33.6 g/dL (30-55); Mean Corpuscular Hemoglobin 31.2 pg (27-33); Mean Corpuscular Volume 92.8 fl (82-101); Monocytes # 0.4 10^3/uL (0.2-0.9); Monocytes % 6.6 %; Neutrophils # 3.29 10^3/uL (1.8-7.7); Neutrophils % 53.1 %; Nucleated Red Blood Cells % 0 %; Platelet Count 220 10^3/cmm (157-399); Red Blood Count 4.46 10^6/uL (3.85-5.65); White Blood Count 6.19 10^3/uL (3.29-11.43)
[2023-06-23 01:38] LABS: Alanine Aminotransferase 28 U/L (0-41); Albumin Level 4.6 g/dL (3.5-5.2); Alkaline Phosphatase 100 U/L (40-130); Anion Gap 13.5 (5-19); Aspartate Amino Transferase 24 U/L (0-40); Blood Urea Nitrogen 16 mg/dL (6-20); Calcium 8.9 mg/dL (8.5-10.5); Carbon Dioxide 25 mmol/L (22-29); Chloride 106 mmol/L (98-107); Globulin 3.3 g/dL (1.3-4.6); Glucose 117 mg/dL (65-115); Osmolality Calculated 294 mOsm/kg (285-295); Potassium 3.5 mmol/L (3.5-5.1); Sodium 141 mmol/L (136-145); Total Bilirubin 1.3 mg/dL (0.15-1.2); Total Protein 7.9 g/dL (6.6-8.7)
[2023-06-23 01:42] LABS: Acetaminophen < 5.0 ug/mL (10-30); Alcohol Level < 10 mg/dL (0-10); Salicylate < 0.3 mg/dL (3-10)
[2023-06-23 02:48] VITALS: PULSE 123; RESP 16; O2SAT 96
== END 2023-06-23 02:50 | disposition home or self-care (01) ==
PROVIDERS: Emergency Provider Emergency Medicine; PCP Family Medicine
DX: F15.151 Other stimulant abuse with stimulant-induced psychotic disorder with hallucinations (principal); R44.0 Auditory hallucinations; F17.210 Nicotine dependence, cigarettes, uncomplicated
CPT/HCPCS: 36415; 80053; 80307; 85025; 96374; 99284; J2060; J7030

== ENCOUNTER 2023-07-03 23:45 | Emergency (ER) | payer OTHER, SELFPAY ==
[2023-07-04] VITALS: BP 146/105; PULSE 110; RESP 18; TEMP 37.1; O2SAT 95; BMI 34.9
--- NOTE | 2023-07-04 00:09 | W.ED.EXTPRO ---
HPI - Extremity Problem General: Chief complaint: Extremity Problem,Nontraumatic Stated complaint: Rt Calf Pain Time Seen by Provider: 07/04/23 00:01 History of Present Illness: 42-year-old male patient comes in today for injury to the right calf muscle. Patient states that he was going down a hill side when the dog came out of the bushes which caused him to jump in turn. When patient made the turning move he felt a pop in the right calf muscle. Patient appears nontoxic. Patient appears no acute distress. Review of Systems General: Reports: 10 or more systems reviewed and unremarkable except in HPI and below Musc: Reports: extremity pain PFS ED PFSH: Social History Smoking and tobacco status: current every day smoker Physical Exam Const: COMMON NORMALS: alert HENMT: COMMON NORMALS: normocephalic HEAD & SCALP: normocephalic Neck/C-Spine: COMMON NORMALS: full ROM Resp: COMMON NORMALS: normal respiratory effort Cardio: COMMON NORMALS: regular rate RATE: regular rate Extremity: RIGHT LOWER EXTREMITY: Yes lower leg (Mild tenderness to the lower right calf, no swelling or redness) Neuro: SENSORIUM/ORIENTATION: Yes alert Skin: COMMON NORMALS: turgor normal GENERAL SKIN EXAM: turgor normal Course Vital Signs: Vital signs: Vital Signs Temperature 98.7 F 07/04/23 00:00 Pulse Rate 110 H 07/04/23 00:00 Respiratory Rate 18 07/04/23 00:00 Blood Pressure 146/105 07/04/23 00:00 Pulse Oximetry 95 07/04/23 00:00 Oxygen Delivery Me thod Room Air 07/04/23 00:00 MDM - Extremity (Nontraumatic) Medical Decision Making 42-year-old male patient comes in today with injury to the right calf muscle patient reports incident occurred this evening. On exam patient has a palpable calf muscle without redness or swelling to the extremity. Distal pulses and sensation are intact. No open wounds were noted. Differential diagnosis includes muscle strain, contusion, compartment syndrome. No signs of serious illness or injury is noted. Reassured patient that is most likely a strain that should improve with time. No need for imaging was noted at this time. Patient was released to home with recommendations for supportive care and follow-up. No radiology studies performed this visit Discharge Plan Discharge Patient Disposition: Home Clinical Impression: Strain of right calf muscle Condition: Stable Prescriptions: No Action amoxicillin-pot clavulanate 875-125 mg tablet 1 tab PO BID 7 Days Qty: 14 0RF Naprosyn 500 mg tablet 500 mg PO BID PRN (Reason: pain) Qty: 20 0RF Discharge Orders: Discharge ED (Routine); Ordered 07/04/23 Ordered By: Ezra Carroll Discharge Diet: Usual diet Discharge Activity: Increase activity as tolerated Patient Instructions: Muscle Strain (ED) Activity Restrictions/Additional Instructions: Use elastic bandage for comfort. Activity as tolerated. Ice or heat for further pain relief. Acetaminophen or ibuprofen for pain. Follow-up with primary care for further instructions. Return to ED for new concerns. Coding Level of Care Code ED Extrusion Die Template Maker for Halle Davis
[2023-07-04 00:21] VITALS: BP 146/105; PULSE 87; RESP 22; O2SAT 98
== END 2023-07-04 00:22 | disposition home or self-care (01) ==
PROVIDERS: Emergency Provider Nurse Practitioner Family
DX: S86.111A Strain of other muscle(s) and tendon(s) of posterior muscle group at lower leg level, right leg, initial encounter (principal); F17.210 Nicotine dependence, cigarettes, uncomplicated; X50.1XXA Overexertion from prolonged static or awkward postures, initial encounter
CPT/HCPCS: 99282

== ENCOUNTER 2023-07-16 12:11 | Emergency (ER) | payer OTHER, SELFPAY ==
[2023-07-16 12:21] VITALS: BP 142/88; PULSE 84; RESP 16; TEMP 36.4; O2SAT 97
--- NOTE | 2023-07-16 13:13 | ED_ITS ---
HPI - Dental/Oral General: Chief complaint: Dental/Oral Stated complaint: left side jaw/tooth pain Time Seen by Provider: 07/16/23 13:04 Source: patient Mode of arrival: ambulatory Limitations: no limitations History of Present Illness: Patient states he is having increased discomfort with pain and pressure in his left upper jaw over a single tooth. He states he thinks he is getting an abscess. He denies any fevers or chills facial numbness or weakness. He states the pain does radiate to his left ear as well. Teeth map: 1. Area of swelling and discomfort Onset (ago): day(s) (Yesterday) Context: history of dental caries Associated symptoms: Reports ear or mastoid pain; Denies fever(s) or odynophagia Review of Systems Const: Denies: fever(s) or chills Eyes: Denies: change in vision ENMT: Reports: ear or mastoid pain; Denies: throat pain, odynophagia, nasal discharge or nasal congestion GI: Denies: nausea, vomiting or diarrhea Neuro: Denies: headache(s), numbness in extremities, weakness in extremities or vertigo PFSH ED PFSH: Social History Smoking and tobacco status: current every day smoker Physical Exam Narrative: EXAM NARRATIVE: He is alert appears comfortable and cooperative. Const: COMMON NORMALS: no acute distress, average body habitus, patient oriented x3 and alert GENERAL APPEARANCE: cooperative and comfortable HENMT: COMMON NORMALS: normocephalic, atraumatic, EAC's normal, TM's normal bilaterally, Normal external nose present, Normal nasal mucous membranes and turbinates present, moist oral mucous membranes and oropharynx normal HEAD & SCALP: normocephalic and atraumatic NOSE: Normal external nose present and Normal nasal mucous membranes and turbinates present EXTERNAL AUDITORY CANAL: EAC's normal TYMPANIC MEMBRANE: TM's normal bilaterally MOUTH: no muffled voice, tongue not abnormal and no trismus TEETH & GINGIVA: Yes fair dentition TEETH & GINGIVA IMAGES: 1. Area of gum swelling and tenderness Eye: COMMON NORMALS: Equal, round and reactive pupils present, EOMs intact bilaterally and conjunctivae normal CONJUNCTIVA: Yes conjunctivae normal PUPIL: Yes Equal, round and reactive pupils present Neck/C-Spine: COMMON NORMALS: full ROM and no lymphadenopathy Resp: COMMON NORMALS: normal respiratory effort EFFORT & INSPECTION: Yes able to speak in complete sentences Extremity: COMMON NORMALS: full ROM Neuro: COMMON NORMALS: patient oriented x3, moves all extremities and no focal motor deficits SENSORIUM/ORIENTATION: Yes alert CRANIAL NERVES: Yes CN normal except as noted Skin: COMMON NORMALS: no rashes or lesions noted, no wounds and turgor normal GENERAL SKIN EXAM: no rashes or lesions noted and turgor normal Procedures Abscess I/D Site: other (Periapical tooth 12) Side (if applicable): left Local Anesthetic: other anesthetic (Topical lidocaine gel) Technique: needle aspiration (Purulent and bloody drainage obtained without difficulty.) Packing used?: none Course Vital Signs: Vital signs: Vital Signs Temperature 97.6 F 07/16/23 12:21 Pulse Rate 84 07/16/23 12:21 Respiratory Rate 16 07/16/23 12:21 Blood Pressure 142/88 07/16/23 12:21 Pulse Oximetry 97 07/16/23 12:21 Oxygen Delivery Me thod Room Air 07/16/23 12:21 MDM - Dental/Oral Medical Decision Making This patient who presented to our emergency department with increasing left maxillary pain with some swelling around the gumline. No associated fevers or other concerning symptoms. His clinical examination was remarkable for swelling and local tenderness over the associated left maxillary premolar. After discussing with the patient topical anesthetic was placed and a 18-gauge needle was used to obtain pressure release and drainage of the periapical abscess. He will be placed on antibiotics with return precautions and instructed for dental care follow-up. Differential Diagnosis Likely dental abscess No radiology studies performed this visit Discharge Plan Discharge Patient Disposition: Home Clinical Impression: Abscess, periapical Condition: Stable Prescriptions: New amoxicillin 500 mg capsule 500 mg PO TID 10 Days Qty: 30 0RF No Action ibuprofen 600 mg tablet 600 mg PO Q8H PRN (Reason: pain) Qty: 14 0RF Discharge Orders: Discharge ED (Routine); Ordered 07/16/23 Ordered By: Tyshawn Webb Discharge Diet: Advance as tolerated Discharge Activity: Increase activity as tolerated Patient Instructions: Opioid Safety, Pain Management Activity Restrictions/Additional Instructions: As we discussed drainage of your abscess root of that involved tooth will improve your of your symptoms. We have also provided a prescription for antibiotics to take until they are completely finished. Rinse your mouth out 3- 4 times daily with warm or room temperature water with a teaspoon of salt in a glass. If you have worsening symptoms increasing swelling fevers chills etc. return to the emergency department. You should call a local dentist for follow-up to fully evaluate that tooth for further care. Coding Level of Care Code ED [employer] Firer/Fireman for Halle Davis
[2023-07-16] MEDS: lidocaine 2% viscous 15 mL UDC TOPICAL (13:35)
[2023-07-16] MEDS: naproxen 500 mg Tablet PO (13:48)
[2023-07-16 13:52] VITALS: BP 142/88; PULSE 84; RESP 16; TEMP 36.4; O2SAT 97
== END 2023-07-16 13:53 | disposition home or self-care (01) ==
PROVIDERS: Emergency Provider Emergency Medicine
DX: K04.7 Periapical abscess without sinus (principal); F17.210 Nicotine dependence, cigarettes, uncomplicated
CPT/HCPCS: 41800; 99283

== ENCOUNTER 2023-07-20 10:18 | Inpatient (IN) | payer OTHER, SELFPAY ==
[2023-07-20 10:18] VITALS: BMI 38.0
[2023-07-20 10:23] VITALS: BP 118/89; PULSE 86; RESP 16; TEMP 37.1; O2SAT 98
--- NOTE | 2023-07-20 10:42 | W.ED.PSYCHS ---
HPI - Psych General: Chief Complaint: Psychiatric Symptoms Stated Complaint: SI Time Seen by Provider: 07/20/23 10:29 Source: patient Mode of arrival: EMS Limitations: no limitations History of Present Illness: Patient is a 42-year-old male who presents to the ED today from [facility] for evaluation/treatment of depression and suicidal ideations. Patient states he has been suicidal for several days. Denies any specific factors to his worsening depression and suicidal thoughts. He states today he wrapped a cord around his neck and pulled on it in an apparent suicide attempt. Patient states he has multiple previous suicide attempts. 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 He states his last use was 1.5 months ago. Patient states he is supposed to be taking psychiatric medications but has not in several months/years. He is unsure of previous psychiatric diagnoses. MD complaint: suicidal ideation and feels depressed Onset (ago): day(s) Duration: constant History of same: Yes Relieving factors: none Context: not taking psychiatric medications Associated psychiatric symptoms: depression and suicidal ideation Associated symptoms: Reports depression and suicidal ideation; Deny auditory hallucinations, visual hallucinations or homicidal ideation Treatments prior to arrival: none If self harm: admits thoughts of self harm, has plan and has acted on plan Review of Systems Const: Denies: fever(s) or chills Card: Denies: chest pain, palpitations, lightheadedness or syncope Resp: Denies: dyspnea GI: Denies: abdominal pain, nausea, vomiting or diarrhea Skin/Breast: Denies: rash Neuro: Denies: headache(s) Psych: Reports: anxiety, depression, hopelessness and suicidal ideation; Denies: visual hallucinations, auditory hallucinations or homicidal ideation [facility] PFSH: Social History Smoking and tobacco status: current every day smoker Physical Exam Const: COMMON NORMALS: no acute distress, patient oriented x3, alert and well nourished GENERAL APPEARANCE: cooperative and well kempt Resp: COMMON NORMALS: normal respiratory effort and clear to auscultation bilaterally AUSCULTATION: clear to auscultation bilaterally Cardio: COMMON NORMALS: regular rate and regular rhythm RATE: regular rate RHYTHM: regular rhythm Neuro: COMMON NORMALS: patient oriented x3 SENSORIUM/ORIENTATION: Yes alert Psych: COMMON NORMALS: mental status grossly normal, Normal thought process present, cooperative, normal affect, speech normal, activity/motor behavior normal, denies hallucinations and denies homicidal ideation APPEARANCE: Yes grossly normal and Yes well kempt ATTITUDE: Yes calm ACTIVITY/MOTOR BEHAVIOR: Yes appropriate eye contact and No psychomotor agitation SPEECH: Yes normal speech MOOD & AFFECT: Yes euthymic mood THOUGHT PROCESS: Normal thought process present MEMORY/COGNITION: Yes memory grossly intact and Yes cognition grossly intact INSIGHT: Good insight present (Psych) JUDGEMENT: Good judgement present (Psych) Course Consultations: Consultation #1: Dr. Herrmann-accepts to [facility] Vital Signs: Vital signs: Vital Signs Temperature 98.8 F 07/20/23 10: Pulse Rate 86 07/20/23 10:23 Respiratory Rate 16 07/20/23 10:23 Blood Pressure 118/89 07/20/23 10:23 Pulse Oximetry 98 07/20/23 10:23 Oxygen Delivery Me thod Room Air 07/20/23 10:23 MDM - Psych Medical Decision Making Patient will be an admit to NPU to Dr. Herrmann for treatment/evaluation of depression/suicidal ideations. Lab Data 07/20/23 10:36 07/20/23 10:36 Laboratory Results WBC 4.85 10^3/uL (3.29-11.43) 07/20/23 10:36 RBC 4.45 10^6/uL (3.85-5.65) 07/20/23 10:36 Hgb 13.80 g/dL (11.27-16.99) 07/20/23 10:36 Hct 41.2 % (37-53) 07/20/23 10:36 MCV 92.6 fl (82-101) 07/20/23 10:36 MCH 31.0 pg (27-33) 07/20/23 10:36 MCHC 33.5 g/dL (30-55) 07/20/23 10:36 RDW 13.2 % (12.1-15.1) 07/20/23 10:36 Plt Count 194 10^3/cmm (157-399) 07/20/23 10:36 MPV 9.4 fL (7.4-10.4) 07/20/23 10:36 Neut % (Auto) 48.5 % 07/20/23 10:36 Lymph % (Auto) 39.0 % 07/20/23 10:36 [place] % (Auto) 7.8 % 07/20/23 10:36 Eos % (Auto) 3.7 % 07/20/23 10:36 Baso % (Auto) 0.6 % 07/20/23 10:36 Neut # (Auto) 2.35 10^3/uL (1.8-7.7) 07/20/23 10:36 Lymph # (Auto) 1.9 10^3/uL (0.8-4.8) 07/20/23 10:36 [place] # (Auto) 0.4 10^3/uL (0.2-0.9) 07/20/23 10:36 Eos # (Auto) 0.2 10^3/uL (0.0-0.8) 07/20/23 10:36 Baso # (Auto) 0.0 10^3/uL (0.0-0.1) 07/20/23 10:36 Nucleated RBC % (auto) 0 % 07/20/23 10:36 Nucleated RBCs # 0.0 /100WBC 07/20/23 10:36 Sodium 139 mmol/L (136-145) 07/20/23 10:36 Potassium 4.5 mmol/L (3.5-5.1) 07/20/23 10:36 Chloride 105 mmol/L (98-107) 07/20/23 10:36 Carbon Dioxide 27 mmol/L (22-29) 07/20/23 10:36 Anion Gap 11.5 (5-19) 07/20/23 10:36 BUN 13 mg/dL (6-20) 07/20/23 10:36 Creatinine 0.7 mg/dL (0.7-1.2) 07/20/23 10:36 GFR Calculation 123.7 mL/min (90-130) 07/20/23 10:36 Glucose 87 mg/dL (65-115) 07/20/23 10:36 Calculated Osmolality 287 mOsm/kg (285-295) 07/20/23 10:36 Calcium 8.8 mg/dL (8.5-10.5) 07/20/23 10:36 Total Bilirubin 0.8 mg/dL (0.15-1.2) 07/20/23 10:36 AST 37 U/L (0-40) 07/20/23 10:36 ALT 21 U/L (0-41) 07/20/23 10:36 Alkaline Phosphatase 82 U/L (40-130) 07/20/23 10:36 Total Protein 6.9 g/dL (6.6-8.7) 07/20/23 10:36 Albumin 4.0 g/dL (3.5-5.2) 07/20/23 10:36 Globulin 2.9 g/dL (1.3-4.6) 07/20/23 10:36 Salicylates < 0.3 mg/dL (3-10) L 07/20/23 10:36 Urine Opiates Screen Negative ng/mL (Negative) 07/20/23 10:33 Acetaminophen < 5.0 ug/mL (10-30) L 07/20/23 10:36 Ur Barbiturates Screen Negative ng/mL (Negative) 07/20/23 10:33 Ur Phencyclidine Scrn Negative ng/mL (Negative) 07/20/23 10:33 Ur Amphetamines Screen Negative ng/mL (Negative) 07/20/23 10:33 U Benzodiazepines Scrn Negative ng/mL (Negative) 07/20/23 10:33 Urine Cocaine Screen Negative ng/mL (Negative) 07/20/23 10:33 U Marijuana (THC) Screen Negative ng/mL (Negative) 07/20/23 10:33 Ethyl Alcohol < 10 mg/dL (0-10) 07/20/23 10:36 No radiology studies performed this visit Discharge Plan Discharge Patient Disposition: Admitted As Inpatient Clinical Impression: Suicidal ideation, Depression Condition: Stable Coding Level of Care Code 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
[2023-07-20 10:45] LABS: Basophils % 0.6 %; Eosinophils # 0.2 10^3/uL (0.0-0.8); Eosinophils % 3.7 %; Hematocrit 41.2 % (37-53); Lymphocytes # 1.9 10^3/uL (0.8-4.8); Mean Corpuscular HGB Conc 33.5 g/dL (30-55); Mean Corpuscular Volume 92.6 fl (82-101); Mean Platelet Volume 9.4 fL (7.4-10.4); Monocytes # 0.4 10^3/uL (0.2-0.9); Monocytes % 7.8 %; Neutrophils # 2.35 10^3/uL (1.8-7.7); Neutrophils % 48.5 %; Nucleated Red Blood Cells % 0 %; Platelet Count 194 10^3/cmm (157-399); Red Blood Count 4.45 10^6/uL (3.85-5.65); Red Cell Distribution Width 13.2 % (12.1-15.1); White Blood Count 4.85 10^3/uL (3.29-11.43)
[2023-07-20 10:58] LABS: Amphetamines Screen Urine Negative (Negative); Barbiturates Screen Urine Negative (Negative); Benzodiazepines Screen Urine Negative (Negative); Cocaine Screen Urine Negative (Negative); Opiate Screen Urine Negative (Negative); PCP Screen Urine Negative (Negative); THC Screen Urine Negative (Negative)
[2023-07-20 11:08] LABS: Alanine Aminotransferase 21 U/L (0-41); Alkaline Phosphatase 82 U/L (40-130); Anion Gap 11.5 (5-19); Aspartate Amino Transferase 37 U/L (0-40); Blood Urea Nitrogen 13 mg/dL (6-20); Calcium 8.8 mg/dL (8.5-10.5); Carbon Dioxide 27 mmol/L (22-29); Chloride 105 mmol/L (98-107); Globulin 2.9 g/dL (1.3-4.6); Glomerular Filtration Rate 123.7 mL/min (90-130); Glucose 87 mg/dL (65-115); Osmolality Calculated 287 mOsm/kg (285-295); Potassium 4.5 mmol/L (3.5-5.1); Sodium 139 mmol/L (136-145); Total Bilirubin 0.8 mg/dL (0.15-1.2); Total Protein 6.9 g/dL (6.6-8.7)
[2023-07-20 11:12] LABS: Acetaminophen < 5.0 ug/mL (10-30); Alcohol Level < 10 mg/dL (0-10); Salicylate < 0.3 mg/dL (3-10)
--- NOTE | 2023-07-20 11:41 | PC.PHAR ---
PT IS FROM [facility]-PER MEHRDAD RX FROM [facility] STATES THE PT HAS BEEN REFUSING ACAMPROSATE 666MG TID,NALTREXONE 25MG BID,MIRTAZAPINE 30MG HS-NOTES ARE MADE IN THE PHARMACY COMMENTS
[2023-07-20 12:24] VITALS: BP 135/87; PULSE 74; RESP 16; TEMP 36.7; O2SAT 97
[2023-07-20] MEDS: hyDROXYzine 25 mg Capsule 50 MG PO (12:41)
[2023-07-20 14:00] VITALS: BP 126/74; PULSE 73; RESP 16; TEMP 36.9; O2SAT 97
--- NOTE | 2023-07-20 15:01 | PC.NURSE ---
AMOXICILLIN 500 MG RESTARTED FOR EAR INFECTION. NEXT DOSE WILL BE AT 1700. ORDERS TO RESTART PTS MEDICATIONS WERE GIVEN BY DR. ARIAS. ORDERS PLACED. EDUCATION PROVIDED TO PT, VERBALIZED UNDERSTANDING. SPOKE WITH PT ABOUT RESTARTING REMERON, PT STATES, I DON'T WANT TO TAKE IT, I DON'T NEED IT, THAT'S WHY I REFUSED IT AT [facility]. WAS NOTIFIED THAT PT DOES NOT WANT HIS REMERON RESTARTED, STATES I SLEEP FINE.
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
[2023-07-20] MEDS: amoxicillin 500 mg Capsule PO (18:16)
[2023-07-20 22:00] VITALS: RESP 18
--- NOTE | 2023-07-20 22:28 | PC.NURSE ---
Unable to obtain vitals due to patient sleeping deeply.
[2023-07-21 06:00] VITALS: BP 121/81; PULSE 90; RESP 18; O2SAT 95
[2023-07-21] MEDS: amoxicillin 500 mg Capsule PO ×3 (06:22→17:16)
--- NOTE | 2023-07-21 12:05 | P.NPUPN_ITS ---
Subjective NPU Subjective: Patient presented today reporting that he is feeling better and wondering about when discharge could be. We discussed concerns about his presentation and agreed to discuss the issue again tomorrow. He is having some resistance to medication but reporting that he is not feeling like he needs the medication. Mental Status Exam MSE Comments: 42-year-old male who appeared his stated age with fair eye contact and normal gait. There was no evidence of any abnormal involuntary motor movements tics or tremors appreciated. his hygiene was fair. His speech was normal in regards to rate rhythm and prosody. Mood described as better, affect slightly subdued. His thought process was linear logical goal-directed. He denied any homicidal or suicidal ideation. He did not appear to be responding to internal stimuli. There was no clear evidence of delusional thinking. His attention span appeared adequate. he denied any auditory or visual hallucinations. He did not appear to be responding to internal stimuli. He was alert and oriented to person place time and situation. His recent and remote memory were grossly intact. His insight is limited. His judgment appeared poor. His impulse control appeared limited as well. Vitals/I&O/Wt Last Vital Signs Temp 98.5 F 07/20/23 14:00 Pulse 90 07/21/23 06:00 Resp 18 07/21/23 06:00 BP 121/81 07/21/23 06:00 Pulse Ox 95 07/21/23 06:00 O2 Del Method Room Air 07/21/23 06:00 Weight last 48 hrs Weight 113.398 kg Data NPU 07/20/23 10:36 07/20/23 10:36 A&P Assessment and plan (1) Acute adjustment disorder with mixed disturbance of emotions and conduct: (2) Methamphetamine dependence: (3) Antisocial personality disorder: Plan 42-year-old white male with a history of methamphetamine dependence admitted with concerns regarding suicidal ideation with patient having wrapped a cord around his neck but reporting intention of wanting to be [facility] as he had expressed anger about having been forced to stay there for an extended period of time despite the patient stating that he had no issues other than his substance abuse issues. 1. ?Encourage individual, group and milieu therapy. 2. Recommend sober living treatment at the highest level of care to which the patient is willing to commit. 3. Continue q-15 minute checks for safety 4. Patient is refusing his psychotropic medications including mirtazapine clonidine and naltrexone at this time stating that he is not depressed and does not need them. We will monitor on the unit. Involuntary Hold Information 96 Hour Hold: 96 Hour Involuntary Admission: No 96 Hour Hold Ending Date: 09/09/20 96 Hour Hold Ending Time: 14:10 Attestations NPU Medical Necessity Statement*: Inpatient hospitalization is medically necessary and deemed to be the ?cl inically appropriate intervention ?at this time.? We will monitor/initiate medications and make changes as indicated.? His likely length of stay 2-3 days. Coding Level of Care Code Acute Code for [facility] Fwd Diagnoses Acute adjustment disorder with mixed disturbance of emotions and conduct F43.25 Methamphetamine dependence F15.20 Antisocial personality disorder F60.2
[2023-07-21 14:00] VITALS: BP 121/82; PULSE 83; RESP 16; TEMP 36.8; O2SAT 94
[2023-07-21 20:29] VITALS: BP 119/70; PULSE 75; RESP 18; TEMP 37; O2SAT 98
[2023-07-22] MEDS: amoxicillin 500 mg Capsule PO ×2 (05:22→11:53)
[2023-07-22 06:00] VITALS: BP 122/76; PULSE 88; RESP 20; O2SAT 94
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
[2023-07-22 13:57] VITALS: BP 122/76; PULSE 88; RESP 20; TEMP 37; O2SAT 94
== END 2023-07-22 14:25 | disposition home or self-care (01) | DRG 882 ==
LOC: ER 11:11 → NP 11:54
PROVIDERS: Admitting Provider Psychiatry & Neurology Psychiatry; Emergency Provider Physician Assistant; Visit Provider Psychiatry & Neurology Psychiatry
DX: F43.25 Adjustment disorder with mixed disturbance of emotions and conduct (principal); R45.851 Suicidal ideations; Z91.128 Patient's intentional underdosing of medication regimen for other reason; F15.21 Other stimulant dependence, in remission
CPT/HCPCS: 36415; 80053; 80306; 80307; 85025; 97150; 97165; 99285

== ENCOUNTER 2023-07-26 21:51 | Emergency (ER) | payer OTHER, SELFPAY ==
[2023-07-26 21:52] VITALS: BP 121/92; PULSE 106; RESP 16; TEMP 36.8; O2SAT 98; BMI 38.0
--- NOTE | 2023-07-26 21:58 | XRR_ITS ---
PROCEDURE INFORMATION: Exam: XR Chest Exam date and time: 07/26/2023 10:05 PM Age: 43 years old Clinical indication: Pain; Chest pressure; Additional info: Chest pain TECHNIQUE: Imaging protocol: Radiologic exam of the chest. Views: 1 view. COMPARISON: CR XR chest 1V portable [id number] 01/12/2021 9:56 AM FINDINGS: Lungs: Unremarkable. No consolidation. Pleural spaces: Unremarkable. No pleural effusion. No pneumothorax. Heart/Mediastinum: Unremarkable. No cardiomegaly. Bones/joints: Unremarkable. XR/XR chest 1V portable [id number] IMPRESSION: No acute findings.
--- NOTE | 2023-07-26 21:58 | ECG_ITS ---
[facility] Test Date: 2023-07-26 Pat Name: Michael Jackson Jr Department: Room: Gender: Male Teaching Aide: : 1980 Requested By: Juan Echeverria Order Number: [id number] Josue MD: Glen Mendoza M.D. Measurements Intervals [place] Rate: 101 P: 31 NV: 152 QRS: -35 QRSD: 97 T: 47 QT: 341 QTc: 444 Interpretive Statements SINUS TACHYCARDIA LEFT AXIS DEVIATION [QRS AXIS < -30] INCOMPLETE RIGHT BUNDLE BRANCH BLOCK [90+ ms QRS DURATION, TERMINAL R IN V1/V2, 40+ ms S IN I/aVL/V4/V5/V6] Compared to ECG 01/18/2020 17:04:11 Left-axis deviation now present Sinus rhythm no longer present Sinus arrhythmia no longer present Electronically Signed On 07-27-2023 16:47:16 CDT by Glen Mendoza M.D. [email or web address]
--- NOTE | 2023-07-26 22:13 | ED_ITS ---
HPI - Chest Pain General: Chief Complaint: Chest Pain Stated Complaint: CP Time Seen by Provider: 07/26/23 22:06 History of Present Illness: Patient presents to the ER with via EMS with complaints of chest pain. Patient states when he was walking back to [place] from the [facility] that she he started having chest pressure and his legs were cramping. Patient states that he is not having either one of the symptoms now. Patient did state that he used meth about a day ago. Patient did say he had 2 heart attacks in the past. Also admitted that he does not take his medicine as prescribed and has not had it for a while. Review of Systems General: Reports: 10 or more systems reviewed and unremarkable except in HPI and below PFSH ED PFSH: Medical History Psychiatric care Social History Smoking and tobacco status: current every day smoker Physical Exam Const: COMMON NORMALS: no acute distress, average body habitus, patient oriented x3, no limitations, healthy appearing, alert and well nourished HENMT: COMMON NORMALS: normocephalic, atraumatic, hearing grossly normal bilaterally, external ears normal, Normal external nose present, moist oral mucous membranes and oropharynx normal HEAD & SCALP: normocephalic and atraumatic NOSE: Normal external nose present EXTERNAL EAR: Yes external ears normal Eye: COMMON NORMALS: Equal, round and reactive pupils present, EOMs intact bilaterally, conjunctivae normal and no scleral icterus CONJUNCTIVA: Yes conjunctivae normal PUPIL: Yes Equal, round and reactive pupils present Neck/C-Spine: COMMON NORMALS: no JVD Chest: COMMONS NORMALS: normal inspection of the chest and normal palpation of entire chest wall Resp: COMMON NORMALS: normal respiratory effort, No retractions, No use of accessory muscles and clear to auscultation bilaterally AUSCULTATION: clear to auscultation bilaterally Cardio: COMMON NORMALS: no JVD, regular rate, regular rhythm, S1 normal heart sound present, S2 normal heart sound present, No gallops present (Cardio), No clicks present (Cardio), No murmurs present (Cardio) and No rub (Cardio) RATE: regular rate RHYTHM: regular rhythm HEART SOUNDS: S1 normal heart sound present and S2 normal heart sound present GI: COMMON NORMALS: Normal to inspection, nondistended, normoactive bowel sounds present, Soft to palpation, non-tender, No hepatosplenomegaly present, no masses and no bruits PALPATION: Yes Soft to palpation and Yes No hepatosplenomegaly present Neuro: COMMON NORMALS: patient oriented x3 SENSORIUM/ORIENTATION: Yes alert Course Vital Signs: Vital signs: Vital Signs Temperature 98.2 F 07/26/23 22:41 Pulse Rate 106 H 07/26/23 22:41 Respiratory Rate 16 07/26/23 22:41 Blood Pressure 121/92 07/26/23 22:41 Pulse Oximetry 98 07/26/23 22:41 MDM - Chest Pain Medical Decision Making While the blood bank technologist was in ER patient changes story and said he did not ever have any chest pain he just did not want to have to walk all the way back from [place] to [facility] what he called the ambulance was for the right only. Patient is refusing lab draw and will be leaving [place] with out full work- up. Differential Diagnosis Unlikely acute massive pulmonary embolism, acute respiratory failure, acute myocardial infarction, cardiac arrest or sudden cardiac Medical Records I reviewed the patient's medical records. Lab Data I reviewed the patient's lab results. Radiology Impressions Chest X-Ray 07/26/23 21:58 IMPRESSION: No acute findings. No radiology studies performed this visit EKG Data EKG 1: I personally reviewed and interpreted this EKG as follows: EKG interpretation date: 07/26/23 EKG interpretation time: 21:55 Prior EKG tracings: not available for review Interpretation: EKG shows ventricular rate 101 bpm, MD interval 152, QRS duration 97, QTc 399, sinus tachycardia, left axis deviation, incomplete right bundle branch block Discharge Plan Discharge Patient Disposition: Home Clinical Impression: Left against medical advice Condition: Stable Prescriptions: No Action ibuprofen 600 mg tablet 600 mg PO Q8H PRN (Reason: pain) Qty: 14 0RF clonidine HCl 0.1 mg Tablet 0.1 mg PO BID PRN (Reason: Blood Pressure) nicotine (polacrilex) 2 mg Gum 24 mg mucous membrane PRN PRN (Reason: Smoking Cessation) ondansetron HCl 8 mg Tablet 8 mg PO TID PRN (Reason: Nausea And Vomiting) naltrexone 50 mg Tablet 25 mg PO BID@12,17 Rx Instructions: (PT REFUSING MED PER MEHRDAD NURSE @[facility]) hydroxyzine pamoate 50 mg Capsule 50 mg PO TID PRN (Reason: Anxiety) mirtazapine 30 mg Tablet 30 mg PO BEDTIME Rx Instructions: (PT REFUSING MEDS-MED ON HOLD PER MEHRDAD RN [facility] ) ibuprofen 200 mg Tablet 400 mg PO Q6H PRN (Reason: Pain) acamprosate 333 mg Tablet,Delayed Release (Dr/Ec) 666 mg PO TID@,, Rx Instructions: (PT REFUSING MED PER MEHRDAD NURSE @[facility]) amoxicillin 500 mg capsule 500 mg PO TID@,, Discharge Orders: Discharge ED (Routine); Ordered 07/26/23 Ordered By: Juan Echeverria Patient Instructions: Against Medical Advice (ED) Coding Level of Care Code ED Pecan Mallow Dipper for Halle Davis
[2023-07-26 22:41] VITALS: BP 121/92; PULSE 106; RESP 16; TEMP 36.8; O2SAT 98
== END 2023-07-26 22:43 | disposition home or self-care (01) ==
PROVIDERS: Emergency Provider Emergency Medicine
DX: R07.9 Chest pain, unspecified (principal); Z53.21 Procedure and treatment not carried out due to patient leaving prior to being seen by health care provider; F17.210 Nicotine dependence, cigarettes, uncomplicated
CPT/HCPCS: 71045; 93005; 99285

== ENCOUNTER 2024-12-23 16:23 | Emergency (ER) | payer OTHER, BC, MEDICAID, SELFPAY ==
--- NOTE | 2024-12-23 16:29 | ECG_ITS ---
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: : 1980 Requested By: Rio Alas Order Number: [id number] Josue MD: KEVIN WALLER Measurements Intervals [place] Rate: 104 P: 25 CT: 154 QRS: -58 QRSD: 91 T: 51 QT: 320 QTc: 422 Interpretive Statements SINUS TACHYCARDIA INCOMPLETE RIGHT BUNDLE BRANCH BLOCK [90+ ms QRS DURATION, TERMINAL R IN V1/V2, 40+ ms S IN I/aVL/V4/V5/V6] LEFT ANTERIOR FASCICULAR BLOCK [QRS AXIS <= -45, QR IN I, RS IN II] Compared to ECG 07/26/2023 21:55:07 Left anterior fascicular block now present Left-axis deviation no longer present Electronically Signed On 12-24-2024 22:16:04 CDT by KEVIN WALLER [id number]
[2024-12-23 16:31] VITALS: BP 129/73; PULSE 106; RESP 18; TEMP 36.6; O2SAT 98; BMI 33.4
== END 2024-12-23 19:03 | disposition left against medical advice (07) ==
PROVIDERS: Emergency Provider Family Medicine
DX: I44.4 Left anterior fascicular block (principal)
CPT/HCPCS: 93005

== ENCOUNTER 2024-12-31 23:59 | Emergency (ER) | payer OTHER, BC, MEDICAID, SELFPAY ==
[2025-01-01 00:05] VITALS: BP 130/81; PULSE 98; RESP 14; TEMP 36.5; O2SAT 95
--- NOTE | 2025-01-01 00:06 | ECG_ITS ---
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 Measurements Intervals [place] Rate: 96 P: 47 VA: 163 QRS: -18 QRSD: 107 T: 46 QT: 350 QTc: 443 Interpretive Statements SINUS RHYTHM INCOMPLETE RIGHT BUNDLE BRANCH BLOCK [90+ ms QRS DURATION, TERMINAL R IN V1/V2, 40+ ms S IN I/aVL/V4/V5/V6] Compared to ECG 12/23/2024 16:29:52 Sinus tachycardia no longer present Left anterior fascicular block no longer present Electronically Signed On 01-01-2025 19:21:47 CDT by Efraín Espinoza M.D. [id number] [id number]
--- NOTE | 2025-01-01 00:20 | XRR_ITS ---
PROCEDURE INFORMATION: Exam: XR Chest Exam date and time: 01/01/2025 12:44 AM Age: 44 years old Clinical indication: Chest wall pain; Additional info: Chest pain TECHNIQUE: Imaging protocol: Radiologic exam of the chest. Views: 1 view. COMPARISON: CR (CHEST, ) 07/26/2023 10:05 PM FINDINGS: Lungs: Unremarkable. No consolidation. Pleural spaces: Unremarkable. No pleural effusion. No pneumothorax. Heart/Mediastinum: Unremarkable. No cardiomegaly. Bones/joints: Unremarkable. XR/XR chest 1V portable [id number] IMPRESSION: No acute findings.
[2025-01-01 00:43] VITALS: BP 125/77; PULSE 89; RESP 19; O2SAT 93
[2025-01-01 00:51] LABS: Basophils % 0.3 %; Eosinophils # 0.1 10^3/uL (0.0-0.8); Eosinophils % 1.4 %; Hematocrit 41.4 % (37-53); Lymphocytes # 1.5 10^3/uL (0.8-4.8); Lymphocytes % 18.5 %; Mean Corpuscular HGB Conc 33.1 g/dL (30-55); Mean Corpuscular Hemoglobin 31.5 pg (27-33); Mean Corpuscular Volume 95.2 fl (82-101); Mean Platelet Volume 9.4 fL (7.4-10.4); Monocytes # 0.4 10^3/uL (0.2-0.9); Monocytes % 5.3 %; Neutrophils # 5.89 10^3/uL (1.8-7.7); Neutrophils % 74.2 %; Nucleated Red Blood Cells % 0 %; Platelet Count 180 10^3/cmm (157-399); Red Blood Count 4.35 10^6/uL (3.85-5.65); Red Cell Distribution Width 13.6 % (12.1-15.1); White Blood Count 7.93 10^3/uL (3.29-11.43)
--- NOTE | 2025-01-01 00:55 | W.ED.CHESTPA ---
HPI - Chest Pain General: Chief Complaint: Chest Pain Stated Complaint: Detoxic\Heart Hurts Time Seen by Provider: 01/01/25 00:12 History of Present Illness: 44-year-old man with a history of methamphetamine addiction, alcohol abuse, depression and hypertension who presents to the emergency room with chest pain. He says his heart hurts. Has some central chest pain. He is also requesting detox off of methamphetamine and alcohol. He shows no signs of withdrawal from alcohol at this point. Vital signs are normal. No cough. No altered mental status. No fevers. No nausea or vomiting. No abdominal pain. Related Data Home Medications ?Medication ?Instructions ?Recorded ?Confirmed acamprosate 333 mg tablet,delayed 666 mg PO TID@,,07/20/23 07/20/23 release amoxicillin 500 mg capsule 500 mg PO TID@,,07/20/23 07/20/23 clonidine HCl 0.1 mg tablet 0.1 mg PO BID PRN Blood Pressure 07/20/23 07/20/23 hydroxyzine pamoate 50 mg capsule 50 mg PO TID PRN Anxiety 07/20/23 07/20/23 ibuprofen 200 mg tablet 400 mg PO Q6H PRN Pain 07/20/23 07/20/23 mirtazapine 30 mg tablet 30 mg PO BEDTIME 07/20/23 07/20/23 naltrexone 50 mg tablet 25 mg PO BID@,17 07/20/23 07/20/23 nicotine (polacrilex) 2 mg gum 24 mg mucous membrane PRN PRN 07/20/23 07/20/23 Smoking Cessation ondansetron HCl 8 mg tablet 8 mg PO TID PRN Nausea And Vomiting 07/20/23 07/20/23 Previous Rx's ?Medication ?Instructions ?Recorded ibuprofen 600 mg tablet 600 mg PO Q8H PRN pain #14 tabs 07/12/23 Allergies Allergy/AdvReac Type Severity Reaction Status Date / Time morphine Allergy ALGY-Rash Verified 01/01/25 00:14 Review of Systems Narrative: Constitutional symptoms: Negative except as documented in HPI. Skin symptoms: Negative except as documented in HPI. Eye symptoms: Negative except as documented in HPI. ENMT symptoms: Negative except as documented in HPI. Respiratory symptoms: Negative except as documented in HPI. Cardiovascular symptoms: Negative except as documented in HPI. Gastrointestinal symptoms: Negative except as documented in HPI. Genitourinary symptoms: Negative except as documented in HPI. Musculoskeletal symptoms: Negative except as documented in HPI. Neurologic symptoms: Negative except as documented in HPI. Psychiatric symptoms: Negative except as documented in HPI. Endocrine symptoms: Negative except as documented in HPI. [facility] ED PFSH: Social History Smoking and tobacco/nicotine status: current every day tobacco/nicotine user Physical Exam Narrative: EXAM NARRATIVE: General: Alert, no acute distress. Skin: Warm, dry. Head: Normocephalic, atraumatic. Neck: Supple, trachea midline. Eye: Extraocular movements are intact. Ears, nose, mouth and throat: mucosa moist. Cardiovascular: Regular, Normal peripheral perfusion. Respiratory: Lungs are clear to auscultation, respirations are non-labored, breath sounds are equal, Symmetrical chest wall expansion. Gastrointestinal: Soft, Nontender, Non distended Musculoskeletal: Normal ROM, no deformity. Neurological: Alert and oriented, No focal neurological deficit observed. Psychiatric: Cooperative, appropriate mood & affect. Course Vital Signs: Vital signs: Vital Signs Temperature 97.7 F 01/01/25 00:05 Pulse Rate 90 01/01/25 01:00 Respiratory Rate 15 01/01/25 01:00 Blood Pressure 125/77 01/01/25 00:43 Pulse Oximetry 96 01/01/25 01:00 Oxygen Delivery Me thod Room Air 01/01/25 00:05 MDM - Chest Pain Medical Decision Making Differential diagnosis for patient with chest pain includes but is not limited to and based on the above HPI, review of systems and physical exam: Pneumonia. unstable angina. angina. Acute coronary syndrome / [place]. Pulmonary embolism. Costochondritis / musculoskeletal. Pleurisy. Pericarditis. Esophageal spasm. Pancreatis. Cholecystitis. Orders placed to evaluate differential diagnosis based on the above differential, HPI and physical exam EKG: Time 12:06 AM. Rate 96. Normal sinus rhythm, No ST-T changes, no ectopy, normal NE & QRS intervals, This was reviewed and interpreted by myself the ER physician at 12:10 AM Repeat EKG: Time 2:26 AM. Rate 80. Normal sinus rhythm, No ST-T changes, no ectopy, normal NE & QRS intervals, This was reviewed and interpreted by myself the ER physician at 2:30 AM. No changes from previous EKG done today in the emergency room. Chest x-ray: No acute process. No infiltrate. No pneumothorax. This was reviewed and interpreted by myself the emergency room physician. I also reviewed the radiology report. Lab Review: Laboratory results were reviewed and interpreted by myself the emergency room physician. Serial troponins are negative. No leukocytosis. No anemia. No renal failure. I reviewed the patient's medical record. Reexamination: Patient remained stable. No increased work of breathing. No altered mental status. No focal motor deficits. Assessment and plan: Noncardiac chest pain Methamphetamine and alcohol dependence - Discharged home - Discussed plan with patient. Answered any questions. - Evaluation and treatment of this problem were appropriate in the emergency setting. Lab Data 01/01/25 00:41 01/01/25 00:41 Radiology Impressions Chest X-Ray 01/01/25 00:20 IMPRESSION: No acute findings. Laboratory Results WBC 7.93 10^3/uL (3.29-11.43) 01/01/25 00:41 RBC 4.35 10^6/uL (3.85-5.65) 01/01/25 00:41 Hgb 13.70 g/dL (11.27-16.99) 01/01/25 00:41 Hct 41.4 % (37-53) 01/01/25 00:41 MCV 95.2 fl (82-101) 01/01/25 00:41 MCH 31.5 pg (27-33) 01/01/25 00:41 MCHC 33.1 g/dL (30-55) 01/01/25 00:41 RDW 13.6 % (12.1-15.1) 01/01/25 00:41 Plt Count 180 10^3/cmm (157-399) 01/01/25 00:41 MPV 9.4 fL (7.4-10.4) 01/01/25 00:41 Neut % (Auto) 74.2 % 01/01/25 00:41 Lymph % (Auto) 18.5 % 01/01/25 00:41 [place] % (Auto) 5.3 % 01/01/25 00:41 Eos % (Auto) 1.4 % 01/01/25 00:41 Baso % (Auto) 0.3 % 01/01/25 00:41 Neut # (Auto) 5.89 10^3/uL (1.8-7.7) 01/01/25 00:41 Lymph # (Auto) 1.5 10^3/uL (0.8-4.8) 01/01/25 00:41 [place] # (Auto) 0.4 10^3/uL (0.2-0.9) 01/01/25 00:41 Eos # (Auto) 0.1 10^3/uL (0.0-0.8) 01/01/25 00:41 Baso # (Auto) 0.0 10^3/uL (0.0-0.1) 01/01/25 00:41 Nucleated RBC % (auto) 0 % 01/01/25 00:41 Nucleated RBCs # 0.0 /100WBC 01/01/25 00:41 Sodium 144 mmol/L (136-145) 01/01/25 00:41 Potassium 3.3 mmol/L (3.5-5.1) L 01/01/25 00:41 Chloride 110 mmol/L (98-107) H 01/01/25 00:41 Carbon Dioxide 23 mmol/L (22-29) 01/01/25 00:41 Anion Gap 14.3 (5-19) 01/01/25 00:41 BUN 13 mg/dL (6-20) 01/01/25 00:41 Creatinine 0.6 mg/dL (0.7-1.2) L 01/01/25 00:41 GFR Calculation 146.4 mL/min (90-130) H 01/01/25 00:41 Glucose 113 mg/dL (65-115) 01/01/25 00:41 Calculated Osmolality 299 mOsm/kg (285-295) H 01/01/25 00:41 Calcium 8.4 mg/dL (8.5-10.5) L 01/01/25 00:41 Total Bilirubin 1.1 mg/dL (0.15-1.2) 01/01/25 00:41 AST 20 U/L (0-40) 01/01/25 00:41 ALT 15 U/L (0-41) 01/01/25 00:41 Alkaline Phosphatase 85 U/L (40-130) 01/01/25 00:41 Troponin T Baseline 8 ng/L (0-15) 01/01/25 00:41 Troponin T 120 Minute 8.54 ng/L (0-15) 01/01/25 01:59 Delta Troponin T 0.54 ABS# (0-10) 01/01/25 01:59 Total Protein 6.1 g/dL (6.6-8.7) L 01/01/25 00:41 Albumin 4.0 g/dL (3.5-5.2) 01/01/25 00:41 Globulin 2.1 g/dL (1.3-4.6) 01/01/25 00:41 All radiology interpretation(s) finalized by discharge Discharge Plan Discharge Patient Disposition: Home Clinical Impression: Non-cardiac chest pain, Methamphetamine dependence Condition: Stable Prescriptions: No Action ibuprofen 600 mg tablet 600 mg PO Q8H PRN (Reason: pain) Qty: 14 0RF clonidine HCl 0.1 mg Tablet 0.1 mg PO BID PRN (Reason: Blood Pressure) nicotine (polacrilex) 2 mg Gum 24 mg mucous membrane PRN PRN (Reason: Smoking Cessation) ondansetron HCl 8 mg Tablet 8 mg PO TID PRN (Reason: Nausea And Vomiting) naltrexone 50 mg Tablet 25 mg PO BID@,17 Rx Instructions: (PT REFUSING MED PER MEHRDAD NURSE @[facility]) hydroxyzine pamoate 50 mg Capsule 50 mg PO TID PRN (Reason: Anxiety) mirtazapine 30 mg Tablet 30 mg PO BEDTIME Rx Instructions: (PT REFUSING MEDS-MED ON HOLD PER MEHRDAD RN [facility] ) ibuprofen 200 mg Tablet 400 mg PO Q6H PRN (Reason: Pain) acamprosate 333 mg Tablet,Delayed Release (Dr/Ec) 666 mg PO TID@,,17 Rx Instructions: (PT REFUSING MED PER MEHRDAD NURSE @[facility]) amoxicillin 500 mg capsule 500 mg PO TID@,,17 Discharge Orders: Discharge ED (Routine); Ordered 01/01/25 Ordered By: Maria C Jiménez Discharge Diet: Usual diet Discharge Activity: Increase activity as tolerated Patient Instructions: Noncardiac Chest Pain (ED), Opioid Safety, Pain Management Activity Restrictions/Additional Instructions: Thank you for choosing [facility] for your healthcare needs today. Please realize this is an emergency room and that we are providing you with a medical screening exam and this may not be complete and all inclusive of all the testing and or work up that you may need to determine your ailment or severity of your illness. You have been screened and evaluated and felt safe for discharge. Health conditions do change or evolve sometimes and as such it is important that you follow up with your Primary Doctor to be re checked, 3-5 days is a general good time frame for follow up. You are always welcome to return to the ED for re assessment if your symptoms are worsening or you have new concerns Print Language: Burkinan Coding Level of Care Code ED Novelty Dipper for Halle Davis
[2025-01-01 01:00] VITALS: PULSE 90; RESP 15; O2SAT 96
[2025-01-01 01:06] LABS: Troponin(5th) Baseline 8 ng/L (0-15)
[2025-01-01 01:07] LABS: Alanine Aminotransferase 15 U/L (0-41); Alkaline Phosphatase 85 U/L (40-130); Anion Gap 14.3 (5-19); Aspartate Amino Transferase 20 U/L (0-40); Blood Urea Nitrogen 13 mg/dL (6-20); Calcium 8.4 mg/dL (8.5-10.5); Carbon Dioxide 23 mmol/L (22-29); Chloride 110 mmol/L (98-107); Creatinine Clr Calc Pharmacy 179.9022; Globulin 2.1 g/dL (1.3-4.6); Glomerular Filtration Rate 146.4 mL/min (90-130); Glucose 113 mg/dL (65-115); Osmolality Calculated 299 mOsm/kg (285-295); Potassium 3.3 mmol/L (3.5-5.1); Sodium 144 mmol/L (136-145); Total Bilirubin 1.1 mg/dL (0.15-1.2); Total Protein 6.1 g/dL (6.6-8.7)
[2025-01-01 02:00] VITALS: BP 127/75; PULSE 80; O2SAT 93
--- NOTE | 2025-01-01 02:20 | ECG_ITS ---
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 Measurements Intervals [place] Rate: 80 P: 35 DC: 180 QRS: -6 QRSD: 113 T: 48 QT: 381 QTc: 442 Interpretive Statements SINUS RHYTHM INCOMPLETE RIGHT BUNDLE BRANCH BLOCK [90+ ms QRS DURATION, TERMINAL R IN V1/V2, 40+ ms S IN I/aVL/V4/V5/V6] Compared to ECG 01/01/2025 00:06:35 No significant changes Electronically Signed On 01-01-2025 19:29:09 CDT by Efraín Espinoza M.D. [email or web address] [id number]
[2025-01-01 02:28] LABS: Troponin 5 2HR 8.54 ng/L (0-15); Troponin 5 2HR Delta 0.54 ABS# (0-10)
[2025-01-01 03:00] VITALS: BP 119/72; PULSE 82; O2SAT 95
[2025-01-01 03:09] VITALS: BP 122/74; PULSE 84; O2SAT 93
== END 2025-01-01 03:10 | disposition home or self-care (01) ==
PROVIDERS: Emergency Provider Emergency Medicine
DX: R07.89 Other chest pain (principal); F15.10 Other stimulant abuse, uncomplicated; Z72.0 Tobacco use; I10 Essential (primary) hypertension
CPT/HCPCS: 36415; 71045; 80053; 84484; 85025; 93005; 99285

== ENCOUNTER 2025-01-01 09:22 | Inpatient (IN) | payer OTHER, BC, MEDICAID, SELFPAY ==
[2025-01-01 09:28] VITALS: BP 123/77; PULSE 82; TEMP 36.4; O2SAT 95; BMI 33.4
--- NOTE | 2025-01-01 09:46 | ED.C_ITS ---
Documented by User: SAUL Fernandez 01/01/25 12:01 HPI - Psych 2 General: Chief Complaint: Anxiety Stated Complaint: MHE Time Seen by Provider: 01/01/25 09:24 Source: patient Mode of arrival: ambulatory Limitations: no limitations History of Present Illness: Patient is a 44-year-old male who presents to ED today with complaint of anxiety and depression. He question suicidal ideations. He states 2 days ago he cut himself all over with unknown intent. Patient tells me he has felt suicidal intermittently over the past several weeks. Patient states he would like admitted to [facility] as he feels like he needs psychiatric care. MD complaint: suicidal ideation, feels depressed and other (anxiety ) Onset (ago): week(s) Duration: constant History of same: Yes Relieving factors: none Exacerbating factors: drug use Associated psychiatric symptoms: depression and suicidal ideation Associated symptoms: Reports depression and suicidal ideation; Deny auditory hallucinations, visual hallucinations or homicidal ideation Treatments prior to arrival: none If self harm: admits thoughts of self harm Related Data Home Medications ?Medication ?Instructions ?Recorded ?Confirmed No Known Home Medications 01/01/2512/15 Allergies Allergy/AdvReac Type Severity Reaction Status Date / Time morphine Allergy ALGY-Rash Verified 01/01/25 09:31 Review of Systems 2 Const: Denies: fever(s) or chills Card: Denies: chest pain, palpitations, lightheadedness or syncope Resp: Denies: dyspnea GI: Denies: abdominal pain, nausea, vomiting or diarrhea Skin/Breast: Denies: rash Neuro: Denies: headache(s) Psych: Reports: anxiety, depression, hopelessness and suicidal ideation; Denies: visual hallucinations, auditory hallucinations or homicidal ideation [facility] ED 2 PFSH: Social History Smoking and tobacco/nicotine status: current every day tobacco/nicotine user Physical Exam 2 Const: COMMON NORMALS: no acute distress, patient oriented x3, alert and well nourished GENERAL APPEARANCE: cooperative Resp: COMMON NORMALS: normal respiratory effort and clear to auscultation bilaterally AUSCULTATION: clear to auscultation bilaterally Cardio: COMMON NORMALS: regular rate and regular rhythm RATE: regular rate RHYTHM: regular rhythm Neuro: COMMON NORMALS: patient oriented x3 SENSORIUM/ORIENTATION: Yes alert Psych: COMMON NORMALS: mental status grossly normal, Normal thought process present, cooperative, normal affect, speech normal, activity/motor behavior normal, denies hallucinations and denies homicidal ideation APPEARANCE: Yes grossly normal ATTITUDE: Yes calm ACTIVITY/MOTOR BEHAVIOR: Yes appropriate eye contact and No psychomotor agitation SPEECH: Yes normal speech MOOD & AFFECT: Yes euthymic mood THOUGHT PROCESS: Normal thought process present ATTENTION/CONCENTRATION: Yes attention grossly intact and Yes concentration grossly intact MEMORY/COGNITION: Yes memory grossly intact and Yes cognition grossly intact INSIGHT: Good insight present (Psych) JUDGEMENT: Fair judgement present (Psych) Course 2 Consultations: Consultation #1: Dr. Hooker-accepts to [facility] Vital Signs: Vital signs: Vital Signs Temperature 97.6 F 01/01/25 09:28 Pulse Rate 82 01/01/25 09:28 Blood Pressure 123/77 01/01/25 09:28 Pulse Oximetry 95 01/01/25 09:28 Oxygen Delivery Me thod Room Air 01/01/25 09:28 MDM - Psych Medical Decision Making Patient will be admitted to [facility] for treatment of his anxiety, worsening depression, suicidal ideations. Affidavit was placed on his chart. Lab Data 01/01/25 09:40 01/01/25 09:40 Laboratory Results WBC 5.54 10^3/uL (3.29-11.43) 01/01/25 09:40 RBC 4.61 10^6/uL (3.85-5.65) 01/01/25 09:40 Hgb 14.30 g/dL (11.27-16.99) 01/01/25 09:40 Hct 43.9 % (37-53) 01/01/25 09:40 MCV 95.2 fl (82-101) 01/01/25 09:40 MCH 31.0 pg (27-33) 01/01/25 09:40 MCHC 32.6 g/dL (30-55) 01/01/25 09:40 RDW 13.8 % (12.1-15.1) 01/01/25 09:40 Plt Count 173 10^3/cmm (157-399) 01/01/25 09:40 MPV 9.4 fL (7.4-10.4) 01/01/25 09:40 Neut % (Auto) 59.8 % 01/01/25 09:40 Lymph % (Auto) 28.7 % 01/01/25 09:40 [place] % (Auto) 7.8 % 01/01/25 09:40 Eos % (Auto) 3.1 % 01/01/25 09:40 Baso % (Auto) 0.4 % 01/01/25 09:40 Neut # (Auto) 3.32 10^3/uL (1.8-7.7) 01/01/25 09:40 Lymph # (Auto) 1.6 10^3/uL (0.8-4.8) 01/01/25 09:40 [place] # (Auto) 0.4 10^3/uL (0.2-0.9) 01/01/25 09:40 Eos # (Auto) 0.2 10^3/uL (0.0-0.8) 01/01/25 09:40 Baso # (Auto) 0.0 10^3/uL (0.0-0.1) 01/01/25 09:40 Nucleated RBC % (auto) 0 % 01/01/25 09:40 Nucleated RBCs # 0.0 /100WBC 01/01/25 09:40 Sodium 141 mmol/L (136-145) 01/01/25 09:40 Potassium 3.9 mmol/L (3.5-5.1) 01/01/25 09:40 Chloride 107 mmol/L (98-107) 01/01/25 09:40 Carbon Dioxide 25 mmol/L (22-29) 01/01/25 09:40 Anion Gap 12.9 (5-19) 01/01/25 09:40 BUN 11 mg/dL (6-20) 01/01/25 09:40 Creatinine 0.5 mg/dL (0.7-1.2) L 01/01/25 09:40 GFR Calculation 180.6 mL/min (90-130) H 01/01/25 09:40 Glucose 89 mg/dL (65-115) 01/01/25 09:40 Calculated Osmolality 291 mOsm/kg (285-295) 01/01/25 09:40 Calcium 8.5 mg/dL (8.5-10.5) 01/01/25 09:40 Total Bilirubin 1.7 mg/dL (0.15-1.2) H 01/01/25 09:40 AST 19 U/L (0-40) 01/01/25 09:40 ALT 16 U/L (0-41) 01/01/25 09:40 Alkaline Phosphatase 93 U/L (40-130) 01/01/25 09:40 Total Protein 6.3 g/dL (6.6-8.7) L 01/01/25 09:40 Albumin 3.8 g/dL (3.5-5.2) 01/01/25 09:40 Globulin 2.5 g/dL (1.3-4.6) 01/01/25 09:40 Salicylates < 0.3 mg/dL (3-10) L 01/01/25 09:40 Urine Opiates Screen Negative ng/mL (Negative) 01/01/25 10:07 Acetaminophen < 5.0 ug/mL (10-30) L 01/01/25 09:40 Ur Barbiturates Screen Negative ng/mL (Negative) 01/01/25 10:07 Ur Phencyclidine Scrn Negative ng/mL (Negative) 01/01/25 10:07 Ur Amphetamines Screen Positive ng/mL (Negative) H 01/01/25 10:07 U Benzodiazepines Scrn Negative ng/mL (Negative) 01/01/25 10:07 Urine Cocaine Screen Negative ng/mL (Negative) 01/01/25 10:07 U Marijuana (THC) Screen Positive ng/mL (Negative) H 01/01/25 10:07 Ethyl Alcohol < 10 mg/dL (0-10) 01/01/25 09:40 No radiology studies performed this visit Discharge Plan Discharge Patient Disposition: Admitted As Inpatient Clinical Impression: Methamphetamine abuse, Suicidal ideation Depression Qualifiers: Depression Type: major depressive disorder Major depression recurrence: r ecurrent Active/Remission status: currently active Major depression episode severity: severe Psychotic features: without psychotic features Qualified Code(s): F33.2 - Major depressive disorder, recurrent severe without psychotic features Condition: Stable Coding Level of Care Code 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 g Fwd Documented by User: Savage Terrell DO 01/01/25 12:17 HPI - Psych 2 General: Chief Complaint: Anxiety Stated Complaint: MHE Time Seen by Provider: 01/01/25 09:24 Related Data Home Medications ?Medication ?Instructions ?Recorded ?Confirmed No Known Home Medications 01/01/2512/15 Allergies Allergy/AdvReac Type Severity Reaction Status Date / Time morphine Allergy ALGY-Rash Verified 01/01/25 09:31 PFSH ED 2 PFSH: Social History Smoking and tobacco/nicotine status: current every day tobacco/nicotine user Course 2 Vital Signs: Vital signs: Vital Signs Temperature 97.6 F 01/01/25 09:28 Pulse Rate 82 01/01/25 09:28 Blood Pressure 123/77 01/01/25 09:28 Pulse Oximetry 95 01/01/25 09:28 Oxygen Delivery Me thod Room Air 01/01/25 09:28 MDM - Psych Medical Decision Making Patient will be admitted to [facility] for treatment of his anxiety, worsening depression, suicidal ideations. Affidavit was placed on his chart. Chart reviewed and patient discussed with midlevel. Agree with assessment and plan. Lab Data 01/01/25 09:40 01/01/25 09:40 Laboratory Results WBC 5.54 10^3/uL (3.29-11.43) 01/01/25 09:40 RBC 4.61 10^6/uL (3.85-5.65) 01/01/25 09:40 Hgb 14.30 g/dL (11.27-16.99) 01/01/25 09:40 Hct 43.9 % (37-53) 01/01/25 09:40 MCV 95.2 fl (82-101) 01/01/25 09:40 MCH 31.0 pg (27-33) 01/01/25 09:40 MCHC 32.6 g/dL (30-55) 01/01/25 09:40 RDW 13.8 % (12.1-15.1) 01/01/25 09:40 Plt Count 173 10^3/cmm (157-399) 01/01/25 09:40 MPV 9.4 fL (7.4-10.4) 01/01/25 09:40 Neut % (Auto) 59.8 % 01/01/25 09:40 Lymph % (Auto) 28.7 % 01/01/25 09:40 [place] % (Auto) 7.8 % 01/01/25 09:40 Eos % (Auto) 3.1 % 01/01/25 09:40 Baso % (Auto) 0.4 % 01/01/25 09:40 Neut # (Auto) 3.32 10^3/uL (1.8-7.7) 01/01/25 09:40 Lymph # (Auto) 1.6 10^3/uL (0.8-4.8) 01/01/25 09:40 [place] # (Auto) 0.4 10^3/uL (0.2-0.9) 01/01/25 09:40 Eos # (Auto) 0.2 10^3/uL (0.0-0.8) 01/01/25 09:40 Baso # (Auto) 0.0 10^3/uL (0.0-0.1) 01/01/25 09:40 Nucleated RBC % (auto) 0 % 01/01/25 09:40 Nucleated RBCs # 0.0 /100WBC 01/01/25 09:40 Sodium 141 mmol/L (136-145) 01/01/25 09:40 Potassium 3.9 mmol/L (3.5-5.1) 01/01/25 09:40 Chloride 107 mmol/L (98-107) 01/01/25 09:40 Carbon Dioxide 25 mmol/L (22-29) 01/01/25 09:40 Anion Gap 12.9 (5-19) 01/01/25 09:40 BUN 11 mg/dL (6-20) 01/01/25 09:40 Creatinine 0.5 mg/dL (0.7-1.2) L 01/01/25 09:40 GFR Calculation 180.6 mL/min (90-130) H 01/01/25 09:40 Glucose 89 mg/dL (65-115) 01/01/25 09:40 Calculated Osmolality 291 mOsm/kg (285-295) 01/01/25 09:40 Calcium 8.5 mg/dL (8.5-10.5) 01/01/25 09:40 Total Bilirubin 1.7 mg/dL (0.15-1.2) H 01/01/25 09:40 AST 19 U/L (0-40) 01/01/25 09:40 ALT 16 U/L (0-41) 01/01/25 09:40 Alkaline Phosphatase 93 U/L (40-130) 01/01/25 09:40 Total Protein 6.3 g/dL (6.6-8.7) L 01/01/25 09:40 Albumin 3.8 g/dL (3.5-5.2) 01/01/25 09:40 Globulin 2.5 g/dL (1.3-4.6) 01/01/25 09:40 Salicylates < 0.3 mg/dL (3-10) L 01/01/25 09:40 Urine Opiates Screen Negative ng/mL (Negative) 01/01/25 10:07 Acetaminophen < 5.0 ug/mL (10-30) L 01/01/25 09:40 Ur Barbiturates Screen Negative ng/mL (Negative) 01/01/25 10:07 Ur Phencyclidine Scrn Negative ng/mL (Negative) 01/01/25 10:07 Ur Amphetamines Screen Positive ng/mL (Negative) H 01/01/25 10:07 U Benzodiazepines Scrn Negative ng/mL (Negative) 01/01/25 10:07 Urine Cocaine Screen Negative ng/mL (Negative) 01/01/25 10:07 U Marijuana (THC) Screen Positive ng/mL (Negative) H 01/01/25 10:07 Ethyl Alcohol < 10 mg/dL (0-10) 01/01/25 09:40 Discharge Plan Discharge Patient Disposition: Admitted As Inpatient Clinical Impression: Methamphetamine abuse, Suicidal ideation Depression Qualifiers: Depression Type: major depressive disorder Major depression recurrence: r ecurrent Active/Remission status: currently active Major depression episode severity: severe Psychotic features: without psychotic features Qualified Code(s): F33.2 - Major depressive disorder, recurrent severe without psychotic features Condition: Stable Coding Level of Care Code 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
--- NOTE | 2025-01-01 09:46 | PC.PHAR ---
Pt states no longer takes any medications-last med rec done 07/2023. The following meds were verified at that time. Acamprosate 333-2tablets po tid, Clonidine 0.1mg bid prn, Hydroxyzine pamoate 59mg tidprn, Ibuprofen 500 q8hprn, mirtazapine 30mg hs, Naltresxone 50mg bid, Nicotine 2mg gum prn, and Ondansetron hci 8mg tid prn,nv. All were removed from chart. Looks like pt discharged from a visit this morning.
[2025-01-01 09:47] LABS: Basophils % 0.4 %; Eosinophils # 0.2 10^3/uL (0.0-0.8); Eosinophils % 3.1 %; Hematocrit 43.9 % (37-53); Lymphocytes # 1.6 10^3/uL (0.8-4.8); Lymphocytes % 28.7 %; Mean Corpuscular HGB Conc 32.6 g/dL (30-55); Mean Corpuscular Volume 95.2 fl (82-101); Mean Platelet Volume 9.4 fL (7.4-10.4); Monocytes # 0.4 10^3/uL (0.2-0.9); Monocytes % 7.8 %; Neutrophils # 3.32 10^3/uL (1.8-7.7); Neutrophils % 59.8 %; Nucleated Red Blood Cells % 0 %; Platelet Count 173 10^3/cmm (157-399); Red Blood Count 4.61 10^6/uL (3.85-5.65); Red Cell Distribution Width 13.8 % (12.1-15.1); White Blood Count 5.54 10^3/uL (3.29-11.43)
[2025-01-01 10:02] LABS: Alanine Aminotransferase 16 U/L (0-41); Albumin Level 3.8 g/dL (3.5-5.2); Alkaline Phosphatase 93 U/L (40-130); Anion Gap 12.9 (5-19); Aspartate Amino Transferase 19 U/L (0-40); Blood Urea Nitrogen 11 mg/dL (6-20); Calcium 8.5 mg/dL (8.5-10.5); Carbon Dioxide 25 mmol/L (22-29); Chloride 107 mmol/L (98-107); Creatinine Clr Calc Pharmacy 215.8827; Globulin 2.5 g/dL (1.3-4.6); Glomerular Filtration Rate 180.6 mL/min (90-130); Glucose 89 mg/dL (65-115); Osmolality Calculated 291 mOsm/kg (285-295); Potassium 3.9 mmol/L (3.5-5.1); Sodium 141 mmol/L (136-145); Total Bilirubin 1.7 mg/dL (0.15-1.2); Total Protein 6.3 g/dL (6.6-8.7)
[2025-01-01 10:03] LABS: Acetaminophen < 5.0 ug/mL (10-30); Alcohol Level < 10 mg/dL (0-10); Salicylate < 0.3 mg/dL (3-10)
[2025-01-01 10:23] LABS: Amphetamines Screen Urine Positive (Negative); Barbiturates Screen Urine Negative (Negative); Benzodiazepines Screen Urine Negative (Negative); Cocaine Screen Urine Negative (Negative); Opiate Screen Urine Negative (Negative); PCP Screen Urine Negative (Negative); THC Screen Urine Positive (Negative)
[2025-01-01 12:47] VITALS: BP 114/82; PULSE 84; RESP 20; TEMP 36.4; O2SAT 98
--- NOTE | 2025-01-01 13:29 | PC.NURSE ---
Admission assessment Patient arrived to the ED seeking help for increase in depression and anxiety. Patient has multiple lacerations to right and left arms, as well as to his right and left thighs and abdomen. Laceration to left outer thigh is particularly reddened and swollen, approximately 1.5 inches in length. Patient reports that he did this about one week ago. Patient has a history of suicide, about one year ago. Patient is unsure of how his method was. Patient denies current suicidal ideation. Patient has court in [facility] on Tuesday. Patient admits to recent drug use, including methamphetamine and alcohol. Patient denies suicidal ideation at this time. Patient says that he is homeless but that he lives with his mother and sister in [place].
[2025-01-01 14:00] VITALS: BP 106/69; PULSE 77; RESP 18; TEMP 36.6; O2SAT 99
[2025-01-01 19:54] VITALS: BP 109/72; PULSE 85; RESP 18; TEMP 36.4; O2SAT 100
[2025-01-02 06:00] VITALS: RESP 16
--- NOTE | 2025-01-02 06:26 | PC.NURSE ---
pt refused vitals stated i just want to sleep
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
[2025-01-02 14:00] VITALS: BP 117/78; PULSE 72; RESP 17; O2SAT 99
[2025-01-02 20:33] VITALS: BP 120/75; PULSE 73; RESP 18; O2SAT 98
[2025-01-03 06:00] VITALS: RESP 16
--- NOTE | 2025-01-03 06:35 | PC.NURSE ---
pt was resting and didnt want me to take his vitals
--- NOTE | 2025-01-03 11:53 | P.NPUPN_ITS ---
Subjective NPU 2 Subjective: 44-year-old male currently homeless posi tive for methamphetamine admitted with depression and suicidal ideation. Patient continued to report having depression and suicidal ideation. He had limited interactions with other peers and spent most of the day sleeping. He had reported that he had been feeling more hopeless. He had reported that he felt tired. He had not endorsed any desire to consider inpatient substance abuse treatment at this time. He continued to show limited efforts to engage in self-care. He had endorsed still hearing voices at this time. Mental Status Exam 2 MSE Comments: 44-year-old male who appeared his stated age with minimal eye contact lying in bed with some improved hygiene. He had poor dentition. There was no evidence of any abnormal involuntary motor movements tics or tremors appreciated. His speech was decreased in rate, decreased in volume and decreased in productivity. His thought process was linear but superficial. He denied any homicidal or suicidal ideation. He did not appear to be responding to internal stimuli although he endorsed auditory hallucinations. There was no clear evidence of delusional thinking. His attention span was poor. he denied visual hallucinations. He was alert and oriented to person only. His recent and remote memory were grossly intact. His insight is limited. His judgment appeared poor. His impulse control appeared limited as well. Vitals/I&O/Wt Last Vital Signs Temp 97.6 F 01/01/25 19:54 Pulse 73 01/02/25 20:33 Resp 16 01/03/25 06:00 BP 120/75 01/02/25 20:33 Pulse Ox 98 01/02/25 20:33 O2 Del Method Room Air 01/01/25 12:51 Data NPU 01/01/25 09:40 01/01/25 09:40 A&P Assessment and plan (1) Acute adjustment disorder with mixed disturbance of emotions and conduct: (2) Methamphetamine dependence: (3) Antisocial personality disorder: Plan 44-year-old white male with a history of methamphetamine dependence admitted with concerns regarding suicidal ideation currently homeless at this time. 1. ?Encourage individual, group and milieu therapy. 2. Recommend sober living treatment at the highest level of care to which the patient is willing to commit. 3. Continue q-15 minute checks for safety 4. Will attempt to gather collateral information. 5. Add invega 3mg at night to target psychosis. PDMP PDMP Reviewed: Not Reviewed Involuntary Hold Information 2 96 Hour Hold: 96 Hour Involuntary Admission: No Attestations NPU 2 Medical Necessity Statement*: Inpatient hospitalization is medically necessary and deemed to be the ?clinically appropriate intervention ?at this time.? We will monitor/initiate medications and make changes as indicated.?? His likely length of stay 2-3 days. Coding Level of Care Code Acute Code for [facility] Fwd Diagnoses Acute adjustment disorder with mixed disturbance of emotions and conduct F43.25 Methamphetamine dependence F15.20 Antisocial personality disorder F60.2
[2025-01-03 14:00] VITALS: BP 125/78; PULSE 82; RESP 16; TEMP 36.7; O2SAT 97
[2025-01-03 19:40] VITALS: BP 116/73; PULSE 78; RESP 18; TEMP 36.8; O2SAT 97
[2025-01-03] MEDS: paliperidone ER 3 mg Tablet PO (20:05)
[2025-01-04 06:00] VITALS: BP 132/72; PULSE 74; RESP 18; TEMP 36.8; O2SAT 99
--- NOTE | 2025-01-04 08:42 | W.PM.NPUPNS ---
Subjective NPU Subjective: Patient presented today reporting that he is feeling better and wondering about when discharge could be. We discussed concerns about his recovery and how it can be difficult at this time. He reports that he has a job lined up with a [employer] but then he also has a court hearing next week and that once that is cleared up he will be able to initiate his career with the [employer]. He began asking if he could possibly discharge tomorrow. . Mental Status Exam MSE Comments: This is an obese white male in hospital scrubs with limited grooming and eye contact. No abnormal movements. Cooperative with exam in no acute distress. Speech was more normal rate and volume. Mood described as feeling better, affect congruent. Thought process organized. Thought content: Patient denied suicidal or homicidal ideation, there were no delusions reported or noted, he denied any auditory or visual hallucinations. Attention and concentration appeared intact and memory appeared mostly reliable but none were formally tested. He is alert and oriented x3. Insight and judgment appear fair, impulse control appears improving. Vitals/I&O/Wt Last Vital Signs Temp 98.2 F 01/04/25 06:00 Pulse 74 01/04/25 06:00 Resp 18 01/04/25 06:00 BP 132/72 01/04/25 06:00 Pulse Ox 99 01/04/25 06:00 O2 Del Method Room Air 01/04/25 06:00 Data NPU 01/01/25 09:40 01/01/25 09:40 A&P Assessment and plan (1) Acute adjustment disorder with mixed disturbance of emotions and conduct: (2) Methamphetamine dependence: (3) Antisocial personality disorder: Plan 44-year-old white male with a history of methamphetamine dependence admitted with concerns regarding suicidal ideation currently homeless at this time. 1. ?Encourage individual, group and milieu therapy. 2. Recommend sober living treatment at the highest level of care to which the patient is willing to commit. 3. Continue q-15 minute checks for safety 4. Will attempt to gather collateral information. 5. Added invega 3mg at night to target psychosis. PDMP PDMP Reviewed: Not Reviewed Involuntary Hold Information 96 Hour Hold: 96 Hour Involuntary Admission: No Attestations NPU Medical Necessity Statement*: Inpatient hospitalization is medically necessary and the?clinically appropriate intervention at this time.? We will monitor/initiate medications and make changes as indicated.?His likely length of stay 2-3 days. Coding Level of Care Code Acute Code for Chg Fwd Diagnoses Acute adjustment disorder with mixed disturbance of emotions and conduct F43.25 Methamphetamine dependence F15.20 Antisocial personality disorder F60.2
[2025-01-04 14:00] VITALS: BP 118/75; PULSE 67; RESP 16; TEMP 36.8; O2SAT 98
[2025-01-04 20:25] VITALS: BP 116/77; PULSE 66; RESP 16; O2SAT 99
[2025-01-05 14:00] VITALS: BP 113/65; PULSE 81; RESP 17; O2SAT 99
--- NOTE | 2025-01-05 15:00 | PC.NURSE ---
Approximately 1500, the pt started yelling in his room, fuck it is so hot in here, I need the air to be turned down right now . Pt had asked around 30 minutes prior for the air to be cooler in which pt was told that we had a process and they would get down here with the remote eventually to help us out. This nurse went to pts room to offer some iced water, a cool rag, or to go sit in the dayroom until they could get down here in which the pt responded by picking up and slinging his bed side table into the closet. This nurse told the pt that being agitated and worked up would only make him hotter and some patience is required to which he responded by slinging his cup of water into the floor near this nurse. Security / charge nurse were informed of incident. Security went ahead and found the remote for this nurse in order to change the temperature in the room. Pt asked for a towel after in order to wipe the water he threw onto the floor and then laid back in bed.
--- NOTE | 2025-01-05 16:30 | P.NPUPN_ITS ---
Subjective NPU 2 Subjective: Patient presented today reporting that things are going okay. He reports that things have been difficult and he is wishing he could go home. He had talked about going and seeing his mom and spending time with her before he goes to 1 of these programs that he anticipates will be at least 1 year long. He reports that he is feeling okay with the medication and we discussed concerns about him discharging and not going from point a to point B but having this. Time where he would want to go home before going to rehab this is a approach that usually ends up in failure. He reports that he understands that and we discussed trying to get till Tuesday to find out where the social work team sees his options as being. He denied any side effects to the medication. Mental Status Exam 2 MSE Comments: This is an obese white male in hospital scrubs with limited grooming and eye contact. No abnormal movements. Cooperative with exam in no acute distress. Speech was more normal rate and volume. Mood described as feeling better, affect congruent. Thought process organized. Thought content: Patient denied suicidal or homicidal ideation, there were no delusions reported or noted, he denied any auditory or visual hallucinations. Attention and concentration appeared intact and memory appeared mostly reliable but none were formally tested. He is alert and oriented x3. Insight and judgment appear fair, impulse control appears improving. Vitals/I&O/Wt Last Vital Signs Temp 98.3 F 01/04/25 14:00 Pulse 81 01/05/25 14:00 Resp 17 01/05/25 14:00 BP 113/65 01/05/25 14:00 Pulse Ox 99 01/05/25 14:00 O2 Del Method Room Air 01/04/25 14:00 Data NPU 01/01/25 09:40 01/01/25 09:40 A&P Assessment and plan (1) Acute adjustment disorder with mixed disturbance of emotions and conduct: (2) Methamphetamine dependence: (3) Antisocial personality disorder: Plan 44-year-old white male with a history of methamphetamine dependence admitted with concerns regarding suicidal ideation currently homeless at this time. 1. ?Encourage individual, group and milieu therapy. 2. Recommend sober living treatment at the highest level of care to which the patient is willing to commit. 3. Continue q-15 minute checks for safety 4. Will attempt to gather collateral information. 5. Added invega 3mg at night to target psychosis. PDMP PDMP Reviewed: Not Reviewed Involuntary Hold Information 2 Hold Status: Date/Time Hold Expires: VOLUNTARY 96 Hour Hold: 96 Hour Involuntary Admission: No Attestations NPU 2 Medical Necessity Statement*: Inpatient hospitalization is medically necessary and the?clinically appropriate intervention at this time.? We will monitor/initiate medications and make changes as indicated.?His likely length of stay 2-3 days. Coding Level of Care Code Acute Code for Chg Fwd Diagnoses Acute adjustment disorder with mixed disturbance of emotions and conduct F43.25 Methamphetamine dependence F15.20 Antisocial personality disorder F60.2
[2025-01-05] MEDS: hyDROXYzine 25 mg Capsule 50 MG PO (17:21)
[2025-01-05 19:58] VITALS: BP 113/71; PULSE 85; RESP 16; O2SAT 97
--- NOTE | 2025-01-05 20:36 | PC.NURSE ---
Pt refused 2100 medication, this nurse prompt pt twice and pt declined both times.
[2025-01-06 06:00] VITALS: BP 103/65; PULSE 53; RESP 16; O2SAT 98
[2025-01-06 14:00] VITALS: BP 111/69; PULSE 76; RESP 17; O2SAT 97
--- NOTE | 2025-01-06 16:40 | P.NPUPN_ITS ---
Subjective NPU 2 Subjective: Patient presented today reporting that things were going okay. He reported talking to someone at a local program and possibly being excepted. We talked about the treatment team being in agreement with him going to a long-term sober living program that the social work team will be here tomorrow and we can discuss the logistics of getting him to what ever program he is chosen. He denied any side effects to his medication. Mental Status Exam 2 MSE Comments: This is an obese white male in hospital scrubs with limited grooming and eye contact. No abnormal movements. Cooperative with exam in no acute distress. Speech was more normal rate and volume. Mood described as feeling better, affect congruent. Thought process organized. Thought content: Patient denied suicidal or homicidal ideation, there were no delusions reported or noted, he denied any auditory or visual hallucinations. Attention and concentration appeared intact and memory appeared mostly reliable but none were formally tested. He is alert and oriented x3. Insight and judgment appear fair, impulse control appears improving. Vitals/I&O/Wt Last Vital Signs Temp 98.3 F 01/04/25 14:00 Pulse 76 01/06/25 14:00 Resp 17 01/06/25 14:00 BP 111/69 01/06/25 14:00 Pulse Ox 97 01/06/25 14:00 O2 Del Method Room Air 01/04/25 14:00 Weight last 48 hrs Weight 100.244 kg Data NPU 01/01/25 09:40 01/01/25 09:40 A&P Assessment and plan (1) Acute adjustment disorder with mixed disturbance of emotions and conduct: (2) Methamphetamine dependence: (3) Antisocial personality disorder: Plan 44-year-old white male with a history of methamphetamine dependence admitted with concerns regarding suicidal ideation currently homeless at this time. 1. ?Encourage individual, group and milieu therapy. 2. Recommend sober living treatment at the highest level of care to which the patient is willing to commit. 3. Continue q-15 minute checks for safety 4. Will attempt to gather collateral information. 5. Added invega 3mg at night to target psychosis. PDMP PDMP Reviewed: Not Reviewed Involuntary Hold Information 2 Hold Status: Date/Time Hold Expires: VOLUNTARY 96 Hour Hold: 96 Hour Involuntary Admission: No Attestations NPU 2 Medical Necessity Statement*: Inpatient hospitalization is medically necessary and the?clinically appropriate intervention at this time.? We will monitor/initiate medications and make changes as indicated.?His likely length of stay 1-2 days. Coding Level of Care Code Acute Code for Chg Fwd Diagnoses Acute adjustment disorder with mixed disturbance of emotions and conduct F43.25 Methamphetamine dependence F15.20 Antisocial personality disorder F60.2
[2025-01-06 21:29] VITALS: BP 109/71; PULSE 78; RESP 17; O2SAT 97
[2025-01-07 06:00] VITALS: BP 88/56; PULSE 74; RESP 16; O2SAT 98
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
[2025-01-07 12:14] VITALS: BP 88/56; PULSE 74; RESP 16; TEMP 36.8; O2SAT 98
== END 2025-01-07 12:29 | disposition home or self-care (01) | DRG 882 ==
LOC: ER 12:01 → NP 12:16
PROVIDERS: Admitting Provider Psychiatry & Neurology Psychiatry; Emergency Provider Physician Assistant; Visit Provider Psychiatry & Neurology Psychiatry
DX: F43.25 Adjustment disorder with mixed disturbance of emotions and conduct (principal); F15.20 Other stimulant dependence, uncomplicated; Z59.00 Homelessness unspecified; F60.2 Antisocial personality disorder; F17.200 Nicotine dependence, unspecified, uncomplicated; E66.9 Obesity, unspecified; Z68.33 Body mass index [BMI] 33.0-33.9, adult
CPT/HCPCS: 36415; 80053; 80306; 80307; 85025; 97150; 97165; 99285; J9999

== ENCOUNTER 2025-03-23 21:54 | Emergency (ER) | payer BC, MEDICAID, SELFPAY ==
[2025-03-23 21:57] VITALS: BP 146/86; PULSE 108; RESP 16; TEMP 36.7; O2SAT 97; BMI 33.4
[2025-03-23 22:19] LABS: Bilirubin Urine Negative (Negative); Blood Urine Trace (Negative); Glucose Urine UA Negative (Normal); Ketones Urine Trace (Negative); Leukocyte Esterase Urine Negative (Negative); Nitrate Urine Negative (Negative); Protein Urine 1+ (Negative); Urine Appearance Clear (CLEAR); Urine Color Yellow (Yellow); pH Urine 5.5 (5-7)
[2025-03-23 22:22] LABS: Add Urine Microscopic? YES; Bacteria Urine None Seen /hpf; Hyaline Casts Urine 1.21 /lpf; Squamous Epithelial Cell Urine 0-5 /hpf (0-5); WBC Urine 0-5 /hpf (0-5)
[2025-03-23 22:28] LABS: Amphetamines Screen Urine Positive (Negative); Barbiturates Screen Urine Negative (Negative); Benzodiazepines Screen Urine Negative (Negative); Cocaine Screen Urine Negative (Negative); Opiate Screen Urine Negative (Negative); PCP Screen Urine Negative (Negative); THC Screen Urine Positive (Negative)
[2025-03-23 22:30] LABS: Specific Gravity, Urine 1.035 (1.005-1.030)
[2025-03-23 22:40] LABS: Basophils % 0.3 %; Eosinophils # 0.1 10^3/uL (0.0-0.8); Eosinophils % 1.3 %; Hematocrit 42.2 % (37-53); Lymphocytes # 1.8 10^3/uL (0.8-4.8); Lymphocytes % 19.3 %; Mean Corpuscular HGB Conc 33.2 g/dL (30-55); Mean Corpuscular Hemoglobin 31.5 pg (27-33); Mean Corpuscular Volume 94.8 fl (82-101); Mean Platelet Volume 9.6 fL (7.4-10.4); Monocytes # 0.6 10^3/uL (0.2-0.9); Monocytes % 6.6 %; Neutrophils # 6.75 10^3/uL (1.8-7.7); Nucleated Red Blood Cells % 0 %; Platelet Count 197 10^3/cmm (157-399); Red Blood Count 4.45 10^6/uL (3.85-5.65); Red Cell Distribution Width 13.6 % (12.1-15.1); White Blood Count 9.38 10^3/uL (3.29-11.43)
[2025-03-23 22:58] LABS: Alanine Aminotransferase 24 U/L (0-41); Albumin Level 4.4 g/dL (3.5-5.2); Alkaline Phosphatase 83 U/L (40-130); Anion Gap 16.7 (5-19); Aspartate Amino Transferase 52 U/L (0-40); Blood Urea Nitrogen 17 mg/dL (6-20); Calcium 8.7 mg/dL (8.5-10.5); Carbon Dioxide 20 mmol/L (22-29); Chloride 106 mmol/L (98-107); Creatinine Clr Calc Pharmacy 134.9267; Globulin 2.8 g/dL (1.3-4.6); Glucose 97 mg/dL (65-115); Osmolality Calculated 289 mOsm/kg (285-295); Potassium 3.7 mmol/L (3.5-5.1); Sodium 139 mmol/L (136-145); Total Protein 7.2 g/dL (6.6-8.7)
[2025-03-23 22:59] LABS: Acetaminophen < 5.0 ug/mL (10-30); Alcohol Level < 10 mg/dL (0-10); Salicylate < 0.3 mg/dL (3-10)
== END 2025-03-24 02:10 | disposition left against medical advice (07) ==
PROVIDERS: Student in an Organized Health Care Education/Training Program; Emergency Provider Family Medicine
DX: Z01.89 Encounter for other specified special examinations (principal); Z53.21 Procedure and treatment not carried out due to patient leaving prior to being seen by health care provider
CPT/HCPCS: 36415; 80053; 80306; 80307; 81001; 85025; 99283

== ENCOUNTER 2025-06-12 20:16 | Emergency (ER) | payer BC, MEDICAID, SELFPAY ==
[2025-06-12 20:22] VITALS: BP 133/79; PULSE 104; RESP 16; TEMP 36.6; O2SAT 98; BMI 33.4
--- NOTE | 2025-06-12 21:42 | XRR_ITS ---
PROCEDURE INFORMATION: Exam: XR Chest Exam date and time: 06/12/2025 9:45 PM Age: 44 years old Clinical indication: Chest wall pain; Additional info: Chest pain TECHNIQUE: Imaging protocol: Radiologic exam of the chest. Views: 1 view. COMPARISON: CR XR chest 1V portable [id number] 01/01/2025 12:44 AM FINDINGS: Lungs: No confluent consolidation. No acute pulmonary process is noted. Pleural spaces: No pleural effusion. No pneumothorax is seen. Heart/Mediastinum: The heart is normal in size. Mediastinal contours are within normal limits. Diaphragm: Stable chronic left hemidiaphragm elevation. Bones/joints: No lytic or blastic lesions. No acute osseous abnormality. Intraperitoneal space: No free air is seen under the diaphragm. XR/XR chest 1V portable [id number] IMPRESSION: No acute pulmonary process. Stable left hemidiaphragm elevation.
--- NOTE | 2025-06-12 21:43 | ECG_ITS ---
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 Measurements Intervals [place] Rate: 105 P: 49 VA: 136 QRS: -33 QRSD: 102 T: 51 QT: 329 QTc: 436 Interpretive Statements SINUS TACHYCARDIA LEFT AXIS DEVIATION [QRS AXIS < -30] INCOMPLETE RIGHT BUNDLE BRANCH BLOCK [90+ ms QRS DURATION, TERMINAL R IN V1/V2, 40+ ms S IN I/aVL/V4/V5/V6] Compared to ECG 04/07/2017 00:17:36 no significant change Electronically Signed On 06-12-2025 22:06:53 CDT by Ethan Diallo M.D. [id number]
== END 2025-06-12 22:04 | disposition left against medical advice (07) ==
PROVIDERS: Emergency Provider Family Medicine
DX: Z53.21 Procedure and treatment not carried out due to patient leaving prior to being seen by health care provider (principal); R00.0 Tachycardia, unspecified; R94.31 Abnormal electrocardiogram [ECG] [EKG]; R07.89 Other chest pain; J98.6 Disorders of diaphragm
CPT/HCPCS: 71045; 93005

== ENCOUNTER 2025-06-21 07:35 | Inpatient (IN) | payer BC, MEDICAID, SELFPAY ==
--- NOTE | 2025-06-21 07:41 | ECG_ITS ---
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 Measurements Intervals [place] Rate: 110 P: 48 HI: 151 QRS: 7 QRSD: 101 T: 56 QT: 319 QTc: 432 Interpretive Statements SINUS TACHYCARDIA POSSIBLE LEFT ATRIAL ENLARGEMENT [-0.1mV P-WAVE IN V1/V2] INCOMPLETE RIGHT BUNDLE BRANCH BLOCK [90+ ms QRS DURATION, TERMINAL R IN V1/V2, 40+ ms S IN I/aVL/V4/V5/V6] ABNORMAL RHYTHM ECG Compared to ECG 06/12/2025 20:25:23 Left-axis deviation no longer present Electronically Signed On 06-21-2025 20:21:34 CDT by Efraín Espinoza M.D. [id number]
--- NOTE | 2025-06-21 07:43 | ED.C_ITS ---
HPI - Psych 2 General: Chief Complaint: Psychiatric Symptoms Stated Complaint: SI attempt Time Seen by Provider: 06/21/25 07:43 History of Present Illness: 44-year-old man with a history of metham phetamine abuse, antisocial personality disorder and depression who presents emergency room with police with concerns for suicidal ideations. He reports that he is feeling suicidal. He says he is had this before but no longer takes any medications for depression. Most recent admission here was December of this year. He also has superficial cuts on his arms and legs that are reported to be self-inflicted. Related Data Previous Rx's ?Medication ?Instructions ?Recorded doxycycline hyclate 100 mg tablet 100 mg PO BID 7 days #14 tabs 05/08/25 Allergies Allergy/AdvReac Type Severity Reaction Status Date / Time morphine Allergy ALGY-Rash Verified 06/12/25 20:29 Review of Systems 2 Narrative: Constitutional symptoms: Negative except as documented in HPI. Skin symptoms: Negative except as documented in HPI. Eye symptoms: Negative except as documented in HPI. ENMT symptoms: Negative except as documented in HPI. Respiratory symptoms: Negative except as documented in HPI. Cardiovascular symptoms: Negative except as documented in HPI. Gastrointestinal symptoms: Negative except as documented in HPI. Genitourinary symptoms: Negative except as documented in HPI. Musculoskeletal symptoms: Negative except as documented in HPI. Neurologic symptoms: Negative except as documented in HPI. Psychiatric symptoms: Negative except as documented in HPI. Endocrine symptoms: Negative except as documented in HPI. PFSH ED 2 PFSH: Social History Smoking and tobacco/nicotine status: current every day tobacco/nicotine user Physical Exam 2 Narrative: EXAM NARRATIVE: General: Alert, no acute distress. Skin: Warm, dry. Superficial cuts on bilateral arms Head: Normocephalic, atraumatic. Neck: Supple, trachea midline. Eye: Extraocular movements are intact. Ears, nose, mouth and throat: mucosa moist. Cardiovascular: Regular, Normal peripheral perfusion. Respiratory: Lungs are clear to auscultation, respirations are non-labored, breath sounds are equal, Symmetrical chest wall expansion. Gastrointestinal: Soft, Nontender, Non distended Musculoskeletal: Normal ROM, no deformity. Neurological: Alert and oriented, No focal neurological deficit observed. Psychiatric: Flat/odd affect. Endorses suicidal thoughts Course 2 Vital Signs: Vital signs: Vital Signs Temperature 98.3 F 06/21/25 07:44 Pulse Rate 108 H 06/21/25 07:48 Respiratory Rate 18 06/21/25 07:44 Blood Pressure 154/71 06/21/25 07:44 Pulse Oximetry 99 06/21/25 07:44 Oxygen Delivery Me thod Room Air 06/21/25 07:44 MDM - Psych Medical Decision Making Differential diagnosis: Patient with reported depression and suicidal ideation. concerns for infection, alcohol intoxication, cardiac issues or other medical problems prior to psychiatric admission. Workup: labwork, ekg ordered to evaluate the pathologies and to clear the patient medically prior to psychiatric admission EKG: Time 741. Rate 110. Sinus tachycardia, No ST-T changes, no ectopy, normal WA & QRS intervals, This was reviewed and interpreted by myself the ER physician at 746 Lab Review: Laboratory results were reviewed and interpreted by myself the emergency room physician. - Medically cleared. - EKG shows no ischemic changes. - Blood alcohol level is negative, -Tylenol and salicylate levels are negative. - Drug screen is positive for methamphetamine - No signs of infection, urinalysis clear and white count is not elevated - No anemia. - BUN is a bit elevated and urine is quite concentrated at 1.35. This would indicate some dehydration I reviewed the patient's chart. Most recent admission was in February of this year. He was treated for similar type presentation. Reexamination: 8:50 AM. I was called back to the patient's room and he is developed an odd unresponsiveness. He has a mild tremor he will still blink his eyes and seems to be tracking around the room but will not speak and will not move. I had nursing go to put in an IV at which point he became responsive again and said now that he did not want an IV. Rollover went to sleep. Consultation: I spoke with Dr. Hooker who is on-call for the psychiatric service who agrees to admission. Assessment and plan: Depression Suicidal ideation Self-mutilating behaviors Methamphetamine abuse -Admission to neuropsychiatric unit for continued evaluation and treatment. - All lab work was reviewed and interpreted personally by myself, the ER physician - Evaluation and treatment of this problem were appropriate in the emergency setting Lab Data 06/21/25 08:04 06/21/25 08:04 Laboratory Results WBC 12.20 10^3/uL (3.29-11.43) H 06/21/25 08:04 RBC 5.14 10^6/uL (3.85-5.65) 06/21/25 08:04 Hgb 16.00 g/dL (11.27-16.99) 06/21/25 08:04 Hct 47.1 % (37-53) 06/21/25 08:04 MCV 91.6 fl (82-101) 06/21/25 08:04 MCH 31.1 pg (27-33) 06/21/25 08:04 MCHC 34.0 g/dL (30-55) 06/21/25 08:04 RDW 13.7 % (12.1-15.1) 06/21/25 08:04 Plt Count 277 10^3/cmm (157-399) 06/21/25 08:04 MPV 9.8 fL (7.4-10.4) 06/21/25 08:04 Neut % (Auto) 69.8 % 06/21/25 08:04 Lymph % (Auto) 21.5 % 06/21/25 08:04 [place] % (Auto) 7.6 % 06/21/25 08:04 Eos % (Auto) 0.5 % 06/21/25 08:04 Baso % (Auto) 0.3 % 06/21/25 08:04 Neut # (Auto) 8.51 10^3/uL (1.8-7.7) H 06/21/25 08:04 Lymph # (Auto) 2.6 10^3/uL (0.8-4.8) 06/21/25 08:04 [place] # (Auto) 0.9 10^3/uL (0.2-0.9) 06/21/25 08:04 Eos # (Auto) 0.1 10^3/uL (0.0-0.8) 06/21/25 08:04 Baso # (Auto) 0.0 10^3/uL (0.0-0.1) 06/21/25 08:04 Nucleated RBC % (auto) 0 % 06/21/25 08:04 Nucleated RBCs # 0.0 /100WBC 06/21/25 08:04 Sodium 137 mmol/L (136-145) 06/21/25 08:04 Potassium 4.2 mmol/L (3.5-5.1) 06/21/25 08:04 Chloride 99 mmol/L (98-107) 06/21/25 08:04 Carbon Dioxide 21 mmol/L (22-29) L 06/21/25 08:04 Anion Gap 21.2 (5-19) H 06/21/25 08:04 BUN 31 mg/dL (6-20) H 06/21/25 08:04 Creatinine 0.9 mg/dL (0.7-1.2) 06/21/25 08:04 GFR Calculation 91.7 mL/min (90-130) 06/21/25 08:04 Glucose 147 mg/dL (65-115) H 06/21/25 08:04 Calculated Osmolality 293 mOsm/kg (285-295) 06/21/25 08:04 Calcium 9.6 mg/dL (8.5-10.5) 06/21/25 08:04 Total Bilirubin 2.8 mg/dL (0.15-1.2) H 06/21/25 08:04 AST 43 U/L (0-40) H 06/21/25 08:04 ALT 28 U/L (0-41) 06/21/25 08:04 Alkaline Phosphatase 93 U/L (40-130) 06/21/25 08:04 Total Protein 8.2 g/dL (6.6-8.7) 06/21/25 08:04 Albumin 4.8 g/dL (3.5-5.2) 06/21/25 08:04 Globulin 3.4 g/dL (1.3-4.6) 06/21/25 08:04 TSH 1.38 uIU/mL (0.27-4.20) 06/21/25 08:04 Urine Color Dark yellow (Yellow) A 06/21/25 07:39 Urine Appearance Clear (CLEAR) 06/21/25 07:39 Urine pH 5.0 (5-7) 06/21/25 07:39 Ur Specific [place] 1.035 (1.005-1.030) H 06/21/25 07:39 Urine Protein 1+ (Negative) A 06/21/25 07:39 Urine Glucose (UA) Negative (Normal) 06/21/25 07:39 Urine Ketones Trace (Negative) 06/21/25 07:39 Urine Blood Negative (Negative) 06/21/25 07:39 Urine Nitrate Negative (Negative) 06/21/25 07:39 Urine Bilirubin 1+ (Negative) H 06/21/25 07:39 Urine Urobilinogen 1.0 mg/dL (Negative) 06/21/25 07:39 Ur Leukocyte Esterase Negative (Negative) 06/21/25 07:39 Urine RBC 0-2 /hpf (0-2) 06/21/25 07:39 Urine WBC 0-5 /hpf (0-5) 06/21/25 07:39 Ur Squamous Epith Cells 0-5 /hpf (0-5) 06/21/25 07:39 Amorphous Sediment Not Reportable 06/21/25 07:39 Urine Bacteria None seen /hpf (NONE) 06/21/25 07:39 Hyaline Casts 3-5 /lpf 06/21/25 07:39 Urine Mucus 2+ /hpf 06/21/25 07:39 Urine Sperm 1+ /hpf 06/21/25 07:39 Salicylates < 0.3 mg/dL (3-10) L 06/21/25 08:04 Urine Opiates Screen Negative ng/mL (Negative) 06/21/25 07:39 Acetaminophen < 5.0 ug/mL (10-30) L 06/21/25 08:04 Ur Barbiturates Screen Negative ng/mL (Negative) 06/21/25 07:39 Ur Phencyclidine Scrn Negative ng/mL (Negative) 06/21/25 07:39 Ur Amphetamines Screen Positive ng/mL (Negative) H 06/21/25 07:39 U Benzodiazepines Scrn Negative ng/mL (Negative) 06/21/25 07:39 Urine Cocaine Screen Negative ng/mL (Negative) 06/21/25 07:39 U Marijuana (THC) Screen Negative ng/mL (Negative) 06/21/25 07:39 Ethyl Alcohol < 10 mg/dL (0-10) 06/21/25 08:04 No radiology studies performed this visit Discharge Plan Discharge Patient Disposition: Admitted As Inpatient Clinical Impression: Suicidal ideation, Self mutilating behavior, 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
[2025-06-21 07:44] VITALS: BP 154/71; PULSE 110; RESP 18; TEMP 36.8; O2SAT 99
[2025-06-21 07:48] VITALS: PULSE 108
[2025-06-21 08:04] LABS: Glucose Urine UA Negative (Normal); Nitrate Urine Negative (Negative)
[2025-06-21 08:06] LABS: PCP Screen Urine Negative (Negative)
[2025-06-21 08:13] LABS: Hematocrit 47.1 % (37-53); Hemoglobin 16.00 g/dL (11.27-16.99); Mean Corpuscular HGB Conc 34.0 g/dL (30-55); Mean Corpuscular Hemoglobin 31.1 pg (27-33); Mean Corpuscular Volume 91.6 fl (82-101); Nucleated Red Blood Cells % 0 %; Platelet Count 277 10^3/cmm (157-399); Red Blood Count 5.14 10^6/uL (3.85-5.65); White Blood Count 12.20 10^3/uL (3.29-11.43)
[2025-06-21 08:23] LABS: Add Urine Microscopic? YES
[2025-06-21 08:39] LABS: Specific Gravity, Urine 1.035 (1.005-1.030); UA Slide Review UA Slide Review Perf
[2025-06-21 08:40] LABS: Acetaminophen < 5.0 ug/mL (10-30); Alanine Aminotransferase 28 U/L (0-41); Albumin Level 4.8 g/dL (3.5-5.2); Alcohol Level < 10 mg/dL (0-10); Alkaline Phosphatase 93 U/L (40-130); Anion Gap 21.2 (5-19); Aspartate Amino Transferase 43 U/L (0-40); Blood Urea Nitrogen 31 mg/dL (6-20); Calcium 9.6 mg/dL (8.5-10.5); Carbon Dioxide 21 mmol/L (22-29); Chloride 99 mmol/L (98-107); Globulin 3.4 g/dL (1.3-4.6); Glucose 147 mg/dL (65-115); Osmolality Calculated 293 mOsm/kg (285-295); Potassium 4.2 mmol/L (3.5-5.1); Salicylate < 0.3 mg/dL (3-10); Sodium 137 mmol/L (136-145); Thyroid Stimulating Hormone 1.38 uIU/mL (0.27-4.20); Total Protein 8.2 g/dL (6.6-8.7)
--- NOTE | 2025-06-21 09:24 | PC.NURSE ---
PT was read his 96 hour hold rights at [id number]. Security was present
--- NOTE | 2025-06-21 09:37 | PC.PHAR ---
Patient states he was discharged in [place] 06/20/25 and they gave him prescriptions and his discharge papers are in his backpack.
[2025-06-21 10:02] VITALS: BP 131/85; PULSE 107; RESP 18; TEMP 36.8; O2SAT 95
--- NOTE | 2025-06-21 13:50 | PC.ADMIT ---
[address] Admission Note:Pt states that he is delusional and paranoid. He kept seeing the same bus following him around on [facility]. He would try to turn and go another direction, but it would turn and try to come back for him. He became upset and states that he started cutting and stabbing himself walking down the sidewalk, but no one would call and get him help. He states that one patron stopped, but only offered to buy him food. He states that he was really upset about this because he was clearly stabbing himself and the person didn't seem to care. He has no signs of stab wounds on himself, but does have self harm scratches and scars all over his bilateral arms, bilateral legs, torso, and neck. None seem to be fresh or bleeding. Pt admits to having used meth yesterday. He states that last night he attempted to hang himself,but he wasn't successful. He has a place on the bottom of his Rt foot on the bend of the little toe that is dried, cracked and bleeding. Pt is calm and cooperative on assessment. The patient,Michael Jackson Jr,44 y/o, was given written information regarding hospital policies, unit procedures and contact persons. Patient's smoking status: current every day smoker. Vital Signs - 8 hr 06/21/25 07:44 06/21/25 07:48 06/21/25 10:02 Temperature 98.3 F 98.3 F Pulse Rate 110 H 108 H 107 H Respiratory Rate 18 18 Blood Pressure 154/71 131/85 Pulse Oximetry 99 95 Oxygen Delivery Method Room Air Room Air 06/21/25 10:04 Temperature Pulse Rate Respiratory Rate Blood Pressure Pulse Oximetry Oxygen Delivery Method Room Air
[2025-06-21 14:00] VITALS: RESP 18
--- NOTE | 2025-06-21 15:27 | PC.NURSE ---
Pt was heard throwing items around in the dayroom during visiting hours. When this nurse approached him and asked what was going on, he stormed past me with no answer. I approached his room and asked what was going on and how we could help him. He states, you guys won't help me and just look down your nose to me I informed pt that we do everything we can to help, how had we not helped him today. He stated that he had requested to see Pastor Contreras and no one did that and he had asked for a number out of his backpack and no one did that either. I informed pt that on admission I offered him to see Pastor Contreras, but he refused and I asked him who he asked for the number out of his bag. He stated that he had asked Anna BELTRAN. He said he changed his mind on Pastor Contreras and had asked Glen to help with that. I came to follow up with above staff. Anna had written number down and got busy and hadn't handed it to him. Glen had called Pastor Contreras and left a message. I went back and relayed this information to the patient. He rolled his eyes and huffed. I informed pt that he has been here to the unit before and he knows that these types of behaviors are not tolerated. We need to use our words and ask for things and use your words again and follow up if something hasn't happened yet. We are all working hard to help everyone and sometimes we have to have patience.
[2025-06-21 20:34] VITALS: BP 106/67; PULSE 77; RESP 18; O2SAT 96
[2025-06-22 06:00] VITALS: BP 102/64; PULSE 80; RESP 16; O2SAT 96
--- NOTE | 2025-06-22 11:22 | NUR.SHIFT ---
Pt was up for breakfast, but has remained in bed with eyes closed the rest of the morning. He is calm and cooperative with staff. No reports of anxiety or depression.
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
--- NOTE | 2025-06-22 13:29 | PC.OT ---
OT evaluation attempted with pt declining at this time; will attempt again at a later time.
[2025-06-22 14:00] VITALS: BP 100/61; PULSE 56; RESP 16; TEMP 36.6; O2SAT 100
[2025-06-22 20:18] VITALS: BP 110/76; PULSE 91; RESP 18; TEMP 36.7; O2SAT 94
[2025-06-23 06:00] VITALS: BP 117/75; PULSE 68; RESP 16; TEMP 37.2; O2SAT 100; BMI 31.5
--- NOTE | 2025-06-23 10:07 | NUR.SHIFT ---
Pt states that he slept good last night. He denies anxiety and depression. No reports of SI/HI or hallucinations. Denies pain. Pt is calm and cooperative on assessment. Once I am finished he covered back up and closed his eyes.
[2025-06-23 14:00] VITALS: BP 102/62; PULSE 58; RESP 16; TEMP 37; O2SAT 97
--- NOTE | 2025-06-23 16:10 | P.NPUPN_ITS ---
Subjective NPU 2 Subjective: Patient presented today reporting things were going a little better today. He still in bed and isolating per staff reports and direct observation but he reports feeling a little better. We discussed the fact that the social work team would be here tomorrow and we can look at resources and explore where to go from here with his recovery. He denied any side effects to his medication. Mental Status Exam 2 MSE Comments: This is an obese white male in hospital scrubs with limited grooming and eye contact. No abnormal movements. Cooperative with exam in mild to moderate acute distress. Speech was more normal rate and volume. Mood described as not good, affect congruent. Thought process organized. Thought content: Patient endorsed suicidal but denied homicidal ideation, there were no delusions reported or noted, he denied any auditory or visual hallucinations. Attention and concentration appeared intact and memory appeared mostly reliable but none were formally tested. He is alert and oriented x3. Insight, judgment and impulse control are all impaired. Vitals/I&O/Wt Last Vital Signs Temp 98.6 F 06/23/25 14:00 Pulse 58 L 06/23/25 14:00 Resp 16 06/23/25 14:00 BP 102/62 06/23/25 14:00 Pulse Ox 97 06/23/25 14:00 O2 Del Method Room Air 06/23/25 14:00 Weight last 48 hrs Weight 94.007 kg Data NPU 06/21/25 08:04 06/21/25 08:04 A&P Assessment and plan 1. Acute adjustment disorder with mixed disturbance of emotions and conduct: 2. Methamphetamine dependence: 3. Antisocial personality disorder: Plan: 44-year-old white male with a history of methamphetamine dependence once again admitted with concerns regarding suicidal ideation, active addiction being currently homeless at this time. 1. ?Encourage individual, group and milieu therapy. 2. Recommend sober living treatment at the highest level of care to which the patient is willing to commit. 3. Continue q-15 minute checks for safety 4. Will attempt to gather collateral information. 5. Restart medications as appropriate. PDMP PDMP Reviewed: Not Reviewed Involuntary Hold Information 2 Hold Status: Legal Status: 96 Hour Hold Date/Time Hold Expires: 06/27/25 @0745 96 Hour Hold: 96 Hour Involuntary Admission: No Attestations NPU 2 Medical Necessity Statement*: Inpatient hospitalization is medically necessary and deemed to be the ?clinically appropriate intervention ?at this time.? We will monitor/initiate medications and make changes as indicated. His likely length of stay 2-3 days. Coding Level of Care Code Acute Code for Chg Fwd Diagnoses Acute adjustment disorder with mixed disturbance of emotions and conduct F43.25 Methamphetamine dependence F15.20 Antisocial personality disorder F60.2
[2025-06-23 20:52] VITALS: BP 115/68; PULSE 76; RESP 16; TEMP 37.1; O2SAT 96
[2025-06-24 06:00] VITALS: BP 111/73; PULSE 60; RESP 16; TEMP 36.4; O2SAT 99
[2025-06-24 14:00] VITALS: BP 114/77; PULSE 69; RESP 17; TEMP 36.7; O2SAT 100
--- NOTE | 2025-06-24 17:21 | P.NPUPN_ITS ---
Subjective NPU 2 Subjective: Patient presented reporting that he was doing better. He endorsed that his sister is now saying that he could come and possibly stay with her. We discussed the importance of him engaging in some kind of treatment that will assist him moving forward with being homeless and his addiction. He endorsed that if he went with his sister he could work and start making money. We discussed the fact that that may be true but without an anchor for his recovery the risk of relapse is high and he eventually acknowledges that his hesitancy about going to rehab is related to his ambivalence about sobriety at this point we discussed him sleeping on this and considering the inpatient option for tomorrow. He denied any side effects to the medication. Mental Status Exam 2 MSE Comments: This is an obese white male in hospital scrubs with limited grooming and eye contact. No abnormal movements. Cooperative with exam in mild to moderate acute distress. Speech was more normal rate and volume. Mood described as better, affect congruent. Thought process organized. Thought content: Patient denied suicidal or homicidal ideation, there were no delusions reported or noted, he denied any auditory or visual hallucinations. Attention and concentration appeared intact and memory appeared mostly reliable but none were formally tested. He is alert and oriented x3. Insight, judgment and impulse control are all limited but improving. Vitals/I&O/Wt Last Vital Signs Temp 98.1 F 06/24/25 14:00 Pulse 69 06/24/25 14:00 Resp 17 06/24/25 14:00 BP 114/77 06/24/25 14:00 Pulse Ox 100 06/24/25 14:00 O2 Del Method Room Air 06/24/25 06:00 Weight last 48 hrs Weight 94.007 kg Data NPU 06/21/25 08:04 06/21/25 08:04 A&P Assessment and plan 1. Acute adjustment disorder with mixed disturbance of emotions and conduct: 2. Methamphetamine dependence: 3. Antisocial personality disorder: Plan: 44-year-old white male with a history of methamphetamine dependence once again admitted with concerns regarding suicidal ideation, active addiction being currently homeless at this time. 1. ?Encourage individual, group and milieu therapy. 2. Recommend sober living treatment at the highest level of care to which the patient is willing to commit. 3. Continue q-15 minute checks for safety 4. Will attempt to gather collateral information. 5. Restart medications as appropriate. 6. Evaluate against the backdrop of the 96-hour hold. 7. Possible rehab vet obtained tentative plan for discharge tomorrow. PDMP PDMP Reviewed: Not Reviewed Involuntary Hold Information 2 Hold Status: Legal Status: 96 Hour Hold Date/Time Hold Expires: 06/27/25 @0745 96 Hour Hold: 96 Hour Involuntary Admission: No Attestations NPU 2 Medical Necessity Statement*: Inpatient hospitalization is medically necessary and deemed to be the ?clinically appropriate intervention ?at this time.? We will monitor/initiate medications and make changes as indicated. His likely length of stay 1-3 days. Coding Level of Care Code Acute Code for Chg Fwd Diagnoses Acute adjustment disorder with mixed disturbance of emotions and conduct F43.25 Methamphetamine dependence F15.20 Antisocial personality disorder F60.2
[2025-06-24 19:56] VITALS: BP 125/83; PULSE 61; RESP 14; TEMP 36.8; O2SAT 99
--- NOTE | 2025-06-25 04:57 | PC.NURSE ---
SHIFT SUMMARY PATIENT HAS RESTED THIS NIGHT WITHOUT S/S OF DISTRESS NOTED.
[2025-06-25 06:00] VITALS: BP 103/64; PULSE 61; RESP 14; TEMP 36.9; O2SAT 97
[2025-06-25 12:57] VITALS: BP 110/76; PULSE 67; RESP 20; TEMP 36.6; O2SAT 97
[2025-06-25 14:53] VITALS: BP 110/76; PULSE 67; RESP 20; TEMP 36.6; O2SAT 97
== END 2025-06-25 16:15 | disposition home or self-care (01) | DRG 885 ==
LOC: ER 08:11 → NP 09:42
PROVIDERS: Admitting Provider Psychiatry & Neurology Psychiatry; Emergency Provider Emergency Medicine; Visit Provider Psychiatry & Neurology Psychiatry
DX: F33.2 Major depressive disorder, recurrent severe without psychotic features (principal); R45.851 Suicidal ideations; Z59.00 Homelessness unspecified; F60.2 Antisocial personality disorder; F17.200 Nicotine dependence, unspecified, uncomplicated; F43.25 Adjustment disorder with mixed disturbance of emotions and conduct; F15.10 Other stimulant abuse, uncomplicated; R00.0 Tachycardia, unspecified; Z91.51 Personal history of suicidal behavior; I10 Essential (primary) hypertension; E66.9 Obesity, unspecified; Z68.31 Body mass index [BMI] 31.0-31.9, adult
CPT/HCPCS: 36415; 80053; 80306; 80307; 81001; 84443; 85025; 93005; 97150; 97165; 99285; J9999